=== PATIENT | female | born 1955 | race Hispanic/Latino ===

== ENCOUNTER 2017-09-26 17:54 | Observation (INO) | payer OTHER ==
[~2017-09-26] VITALS: Ht 154.9 cm; Wt 93.0 kg
[~2017-09-26 17:54] MED LIST: HYDROCHLOROTHIA25 MG; Z.0.ADVAIR 250-501 E; Z.0.AZITHROMYCIN250; Z.0.POTASSIUM CHLO20 MT; Z.0.PREDNISONE20 MG; Z.0.ZYRTEC10 MG; Z.1.CETIRIZINE HCL10
[2017-09-26 19:24] LABS: BASOPHILS # (AUTO) 0.1 (0.0-0.1); BASOPHILS % 0.6 % (0.0-1.0); EOSINOPHILS # (AUTO) 0.2 (0.0-0.4); EOSINOPHILS % 2.7 % (0.0-6.0); HEMATOCRIT 44.1 % (34.2-44.1); LYMPHOCYTES # (AUTO) 1.8 (1.0-3.2); LYMPHOCYTES % 20.4 % (18.0-39.1); MEAN CORPUSCULAR HEMOGLOBIN 28.4 pg (28-32); MEAN CORPUSCULAR VOLUME 83.4 fL (81-99); MONOCYTES # (AUTO) 0.7 (0.2-0.8); MONOCYTES % 8.2 % (4.4-11.3); NEUTROPHILS % 67.9 % (38.7-80.0); PLATELET COUNT 313 x10e3/uL (140-360); RED BLOOD COUNT 5.29 x10e6/uL (3.6-5.1); RED CELL DISTRIBUTION WIDTH 13.4 % (11.7-14.4)
[2017-09-26 19:36] LABS: INR 0.99; PROTHROMBIN TIME 12.3 seconds (11.9-14.5)
[2017-09-26 19:37] LABS: PARTIAL THROMBOPLASTIN TIME 29.3 seconds (23.8-35.5)
--- NOTE | 2017-09-26 19:38 | Diagnostic Imaging Report ---
EXAMINATION: Head CT without contrast. HISTORY:Status post fall. COMPARISON:CT brain from 06/16/2009. TECHNIQUE: Multidetector axial images were obtained from the foramen magnum to the vertex without contrast. The images were reconstructed using brain and bone algorithms. Thin section brain images were reformatted into coronal and sagittal planes. Intravenous contrast: None IMAGE QUALITY: Suboptimal evaluation particularly of skull base and posterior fossa structures due to streak artifacts. FINDINGS: Skull/scalp: No lytic or blastic. lesions. No surgical changes. Parenchyma: Nonspecific few, scattered supratentorial white matter hypodensity are likely related to small vessel ischemic changes. No acute hemorrhage, mass or acute major vascular territorial infarct. Arteries: No density suggestive of thrombosis. Dural sinuses: No abnormal density suggestive of thrombosis. Ventricles: Mild compensated dilatation due to volume loss. No hydrocephalus. Extra-axial spaces: No abnormal density. Brain volume: Mild generalized cerebral volume loss. Craniocervical junction: No mass, Chiari malformation, or basilar invagination. Sella: No mass. Paranasal/mastoid sinuses: Imaged portions unremarkable. IMPRESSION: No acute intracranial abnormality. Mild supratentorial white matter microvascular ischemic changes. Mild generalized cerebral volume loss. Signed by: Dr. Corie Celestin M.D. on 09/26/2017 7:34 PM
[2017-09-26 19:41] LABS: CREATINE KINASE 106 IU/L (29-168)
[2017-09-26 19:59] LABS: CLARITY,URINE CLEAR (CLEAR); COLOR,URINE YELLOW (YELLOW)
[2017-09-26 20:00] LABS: BILIRUBIN,URINE NEGATIVE (NEGATIVE); KETONES,URINE NEGATIVE (NEGATIVE); LEUKOCYTE ESTERASE ,URINE NEGATIVE (NEGATIVE); NITRITE,URINE NEGATIVE (NEGATIVE); PROTEIN,URINE DIPSTICK NEGATIVE (NEGATIVE); URINE UROBILINOGEN 0.2 mg/dL (0.2 - 1)
[2017-09-26 20:01] LABS: BACTERIA,URINE FEW /HPF; EPITHELIAL CELLS,URINE FEW /LPF; RBC,URINE 0-5 /HPF (0-5); WBC,URINE (MAN) 0-5 /HPF (0-5)
--- NOTE | 2017-09-26 20:29 | Diagnostic Imaging Report ---
EXAMINATION: CHEST SINGLE (PORTABLE) INDICATION: Chest pain, heaviness COMPARISON: 08/24/2011 FINDINGS: TUBES and LINES: None. LUNGS: Lungs are not well inflated. Lungs are clear. There is no evidence of pneumonia or pulmonary edema. PLEURA: No pleural effusion or pneumothorax. HEART AND MEDIASTINUM: The cardiomediastinal silhouette is unremarkable. BONES AND SOFT TISSUES: No acute osseous lesion. Anterior cervical spine fusion with plate and screws present. Soft tissues are unremarkable. UPPER ABDOMEN: No free air under the diaphragm. IMPRESSION: No acute thoracic abnormality. Signed by: Dr. Cody Fuentes M.D. on 09/26/2017 8:25 PM
[2017-09-26 21:21] LABS: ALBUMIN 3.6 g/dL (3.5-5.0); CALCIUM 9.7 mg/dL (8.4-10.2); CREATININE, SERUM 1.21 mg/dL (0.57-1.11)
[2017-09-26] MEDS ORDERED: SODIUM CHLORIDE FLUSH 10 ML SYR INJ PRN (21:45)
[2017-09-26] MEDS ORDERED: ONDANSETRON HCL INJ 2 MG/ML VIAL IV PRN (21:45)
--- OUTSIDE RECORDS SUMMARY | 2017-09-26 21:49 | XMS REPORT ---
Author Author [facility] Address Unknown Phone Unavailable Care Team Providers Care Sports Marketing Specialist Name Role Phone LARA LOPEZ PP Unavailable ALKA PIERRE Unavailable Unavailable Problems This patient has no known problems. Allergies, Adverse Reactions, Alerts This patient has no known allergies or adverse reactions. Medications This patient has no known medications. Encounters Start Date/Time End Date/Time Encounter Type Admission Type Attending Clinicians Care Facility Care Department Encounter ID 2017-04-22 13:19:00 2017-04-22 13:19:00 Outpatient [facility] [id number] Results Test Description Test Time Test Comments Text Results Atomic Results Result Comments CT BRAIN WO [place] [address] Patient Name: MARILYNN BARBOZA MR #: [id number] : 1955 Age/Sex: 62/F Req # : [id number] Adm Physician: Ordered by: KATHARINE CHÁVEZ NP Report #: [id number] Location: ER Room/Bed: Procedure: [id number] CT/CT BRAIN WO Exam Date: 09/26/17 Exam Time: 4 REPORT STATUS: Signed EXAMINATION: Head CT without contrast. HISTORY:Status post fall. COMPARISON:CT brain from 06/16/2009. TECHNIQUE: Multidetector axial images were obtained from the foramen magnum to the vertex without contrast. The images were reconstructed using brain and bone algorithms. Thin section brain images were reformatted into coronal and sagittal planes. Intravenous contrast: None IMAGE QUALITY: Suboptimal evaluation particularly of skull base and posterior fossa structures due to streak artifacts. FINDINGS: Skull/scalp: No lytic or blastic. lesions. No surgical changes. Parenchyma: Nonspecific few, scattered supratentorial white matter hypodensity are likely related to small vessel ischemic changes. No acute hemorrhage, mass or acute major vascular territorial infarct. Arteries: No density suggestive of thrombosis. Dural sinuses: No abnormal density suggestive of thrombosis. Ventricles: Mild compensated dilatation due to volume loss. No hydrocephalus. Extra- axial spaces: No abnormal density. Brain volume: Mild generalized cerebral volume loss. Craniocervical junction: No mass, Chiari malformation, or basilar invagination. Sella: No mass. Paranasal/ mastoid sinuses: Imaged portions unremarkable. IMPRESSION: No acute intracranial abnormality. Mild supratentorial white matter microvascular ischemic changes. Mild generalized cerebral volume loss. Signed by: Dr. Corie Celestin M.D. on 09/26/2017 7:34 PM Dictated By: CORIE CELESTIN MD 33 Transcribed By: JENNIFER on 09/26/171933 COPY TO: KATHARINE CHÁVEZ NP CHEST SINGLE (PORTABLE) [place] [address] Patient Name: MARILYNN BARBOZA MR #: [id number] : 1955 Age/Sex: 62/F Req #: [id number] Adm Physician: Ordered by: KATHARINE CHÁVEZ NP Report #: [id number] Location: ER Room/Bed: Procedure: [id number] DX/CHEST SINGLE (PORTABLE) Exam Date: 09/26/17 Exam Time: 1851 REPORT STATUS: Signed EXAMINATION: CHEST SINGLE (PORTABLE) INDICATION: Chest pain, heaviness COMPARISON: 08/24/2011 FINDINGS: TUBES and LINES: None. LUNGS: Lungs are not well inflated. Lungs are clear. There is no evidence of pneumonia or pulmonary edema. PLEURA: No pleural effusion or pneumothorax. HEART AND MEDIASTINUM: The cardiomediastinal silhouette is unremarkable. BONES AND SOFT TISSUES: No acute osseous lesion. Anterior cervical spine fusion with plate and screws present. Soft tissues are unremarkable. UPPER ABDOMEN: No free air under the diaphragm. IMPRESSION: No acute thoracic abnormality. Signed by: Dr. Cody Fuentes M.D. on 09/26/2017 8:25 PM Dictated By: CODY RITTER MD 24 Transcribed By: JENNIFER on 09/26/172024 COPY TO: KATHARINE CHÁVEZ NP
[2017-09-26] MEDS ORDERED: PRILOSEC OTC20 MG PO (22:01)
[2017-09-26] MEDS ORDERED: HYDROCHLOROTHIA25 MG PO (22:01)
[2017-09-26] MEDS ORDERED: POTASSIUM CHLO20 ME1 PO (22:01)
[2017-09-26] MEDS: ACETAMINOPHEN 325 MG TAB PO PRN (22:36)
[2017-09-27] VITALS (8 sets, daily range): BP systolic 105–129; BP diastolic 47–66
[2017-09-27] MEDS: ACETAMINOPHEN 325 MG TAB PO PRN ×3 (03:24→15:04)
[2017-09-27 03:55] LABS: CREATINE KINASE MB 0.7 ng/mL (0-5.0)
[2017-09-27 07:01] LABS: BASOPHILS # (AUTO) 0.1 (0.0-0.1); BASOPHILS % 0.7 % (0.0-1.0); EOSINOPHILS # (AUTO) 0.3 (0.0-0.4); EOSINOPHILS % 4.2 % (0.0-6.0); HEMATOCRIT 40.4 % (34.2-44.1); HEMOGLOBIN 13.6 g/dL (12.0-16.0); LYMPHOCYTES # (AUTO) 1.5 (1.0-3.2); LYMPHOCYTES % 21.2 % (18.0-39.1); MEAN CORPUSCULAR HEMOGLOBIN 28.2 pg (28-32); MEAN CORPUSCULAR HGB CONC 33.7 g/dL (31-35); MEAN CORPUSCULAR VOLUME 83.8 fL (81-99); MONOCYTES # (AUTO) 0.6 (0.2-0.8); MONOCYTES % 8.2 % (4.4-11.3); NEUTROPHILS # (AUTO) 4.7 (2.1-6.9); NEUTROPHILS % 65.4 % (38.7-80.0); PLATELET COUNT 300 x10e3/uL (140-360); RED BLOOD COUNT 4.82 x10e6/uL (3.6-5.1); RED CELL DISTRIBUTION WIDTH 13.7 % (11.7-14.4)
[2017-09-27 07:25] LABS: ALANINE AMINOTRANSFERASE 17 IU/L (0-55); ALBUMIN 3.1 g/dL (3.5-5.0); ALKALINE PHOSPHATASE 66 IU/L (40-150); ANION GAP 11.5 mmol/L (8-16); BLOOD UREA NITROGEN 15 mg/dL (7-26); BUN/CREATININE RATIO 17 (6-25); CALCIUM 8.8 mg/dL (8.4-10.2); CARBON DIOXIDE 28 mmol/L (22-29); CHLORIDE 104 mmol/L (98-107); CREATININE, SERUM 0.86 mg/dL (0.57-1.11); EST GLOMERULAR FILTRATION RATE > 60 ML/MIN (60-); GLUCOSE 100 mg/dL (74-118); POTASSIUM 3.5 mmol/L (3.5-5.1); SODIUM 140 mmol/L (136-145)
[2017-09-27] MEDS ORDERED: PANTOPRAZOLE SOD 40 MG TABEC PO SCH (07:30)
--- NOTE | 2017-09-27 08:27 | History and Physical ---
PRIMARY CARE PHYSICIAN: Dr. Sangeeta Matos CHIEF COMPLAINT: Dizziness and fall. HISTORY OF PRESENT ILLNESS: A 62-year-old woman with a history of hypertension, who was doing some yard work when she bent down to pull out some weeds, became dizzy, fell, and hit her left leg and head. She was admitted for further evaluation and management. PAST MEDICAL HISTORY: Hypertension, hyperlipidemia and GERD. PAST SURGICAL HISTORY: Left total knee replacement, left bunionectomy, right carpal tunnel release surgery, tonsillectomy, cholecystectomy, hysterectomy. ALLERGIES: PER ELECTRONIC MEDICAL RECORD. FAMILY HISTORY/SOCIAL HISTORY: The patient is . She has 2 children. Occasional alcohol. No cigarettes or illicits. MEDICATIONS: Per electronic medical record. REVIEW OF SYSTEMS: Denies any dizziness or chest pain. PHYSICAL EXAMINATION VITAL SIGNS: Have been reviewed. GENERAL: A tired-appearing woman resting in bed. HEENT: Anicteric. Pupils respond to light. No oral lesions. CARDIOVASCULAR: Normal S1 and S2. LUNGS: Moderate breath sounds. ABDOMEN: Soft, nontender and nondistended. EXTREMITIES: No edema or calf tenderness. NEUROLOGICAL: Alert and oriented times 3. Moving all extremities. SKIN: She has a small bruise on the right leg and right arm. Small bruising but no open wounds. Skin is dry. PSYCHIATRIC: Normal affect. LABS: Reviewed. MEDICATIONS: Reviewed. ASSESSMENT AND PLAN: This is a 62-year-old woman with: 1. Dizziness: Related to dehydration. Rehydrate now. 2. Acute kidney injury: Rehydrate. 3. Obesity: Body mass index 38.7. Consider obtaining lipid panel. 4. Hypertension: Restart home medications. 5. Gastroesophageal reflux disease: Restart proton pump inhibitor. 6. Prophylaxis: Use sequential compression devices and proton pump inhibitor. 7. Disposition: Check labs this afternoon at 4 p.m. If stable and improved, plan to discharge home after rehydration. Job#: [id number] ME
[2017-09-27] MEDS: SODIUM CHLORIDE 0.9% 1000ML 1,000 ML IV SCH ×2 (08:28→18:00)
[2017-09-27] MEDS ORDERED: NON-FORMULARY MEDICATION (Omeprazole Magnesium (Prilosec Otc) 20 MG) PO SCH (09:00)
[2017-09-27 11:08] LABS: CREATINE KINASE 73 IU/L (29-168)
[2017-09-27 16:20] LABS: HEMATOCRIT 41.8 % (34.2-44.1); HEMOGLOBIN 13.8 g/dL (12.0-16.0)
[2017-09-27 16:34] LABS: ANION GAP 10.8 mmol/L (8-16); BLOOD UREA NITROGEN 14 mg/dL (7-26); BUN/CREATININE RATIO 16 (6-25); CALCIUM 8.6 mg/dL (8.4-10.2); CARBON DIOXIDE 29 mmol/L (22-29); CHLORIDE 105 mmol/L (98-107); CREATININE, SERUM 0.85 mg/dL (0.57-1.11); EST GLOMERULAR FILTRATION RATE > 60 ML/MIN (60-); GLUCOSE 104 mg/dL (74-118); POTASSIUM 3.8 mmol/L (3.5-5.1); SODIUM 141 mmol/L (136-145)
[2017-09-27] MEDS ORDERED: ENOXAPARIN SOD INJ 40 MG/0.4 ML SYR SC SCH (17:00)
== END 2017-09-27 18:19 | disposition home or self-care (01) ==
LOC: ER 17:54 → ERHOLD 21:46 → IMCU 22:49
PROVIDERS: ADMIT Internal Medicine; ATTEND Internal Medicine
DX: R55 Syncope and collapse (principal); S00.83XA Contusion of other part of head, initial encounter; S80.11XA Contusion of right lower leg, initial encounter; I10 Essential (primary) hypertension; W01.0XXA Fall on same level from slipping, tripping and stumbling without subsequent striking against object, initial encounter; Y93.H2 Activity, gardening and landscaping; Y92.017 Garden or yard in single-family (private) house as the place of occurrence of the external cause; E78.5 Hyperlipidemia, unspecified; N17.9 Acute kidney failure, unspecified; E66.9 Obesity, unspecified; Z68.38 Body mass index [BMI] 38.0-38.9, adult
CPT/HCPCS: 36415 ×2; 70450; 71045; 80048; 80053 ×2; 81001; 82550 ×2; 82553 ×2; 84484 ×2; 85014; 85018; 85025 ×2; 85610; 85730; 93005; 93306; 93880; 97139; 97161; 99284; G0378 ×2; J7030

== ENCOUNTER 2018-08-27 11:16 | Inpatient (IN) | payer OTHER ==
[~2018-08-27] VITALS: Ht 152.4 cm; Wt 85.7 kg
[~2018-08-27 11:16] MED LIST changes: +HYDROCHLOROTHIA25 MG PO; +POTASSIUM CHLO20 ME1 PO; +PRILOSEC OTC20 MG PO
--- OUTSIDE RECORDS SUMMARY | 2018-08-27 11:20 | XMS REPORT | Summary of Care ---
Author Author [facility] Organization [facility] Address Unknown Phone Unavailable Encounter HQ Meryl_ana luisa(FIN) [id number] Date(s): 03/17/17 - 03/17/17 [facility] [address] [place] [address]- Discharge Disposition: Home or Self Care Attending Physician: Sangeeta Matos MD Referring Physician: Sangeeta Matos MD Vital Signs No data available for this section Problem List Condition Effective Dates Status Health Status Informant Hayfever(Confirmed) Active Anemia(Confirmed) Resolved Anxiety(Confirmed) Resolved Knee pain(Confirmed) Active Bronchitis(Confirmed Resolved ) Fracture of 09/10/08 Active humerus1, 2 Reflux Active esophagitis(Confirme d) HTN Active (hypertension)(Confi rmed) Arthritis(Confirmed) Active Pneumonia(Confirmed) Resolved Sleep Active apnea(Confirmed) 1Data migrated from [employer] on 11/20/14. 2Data migrated from [employer] on 11/20/14. Allergies, Adverse Reactions, Alerts Substance Reaction Severity Status meloxicam Active Medications No data available for this section Results No data available for this section Immunizations Given and Recorded Vaccine Date Status Refusal Reason influenza virus vaccine, inactivated 04/15/16 Given pneumococcal 23-valent vaccine 05/22/16 Given Procedures Procedure Date Related Diagnosis Body Site Cardiac catheterisation 04/06/16 Cervical laminectomy 2004 Carpal tunnel1 1998 Bunionectomy 1994 Laparoscopic cholecystectomy 1985 Hysterectomy 1979 Tonsillectomy 1980 1rt wrist Social History Social History Type Response Substance Abuse Use: None. Alcohol Current, Type Wine. Frequency: 1-2 times per year. Started age 21 Years. Previous treatment: None. Alcohol use interferes with work or home: No. Drinks more than intended: Yes. Others hurt by drinking: No. Ready to change: No. Household alcohol concerns: No. Smoking Status Never smoker; Exposure to Tobacco Smoke None; Cigarette Smoking Last 365 Days No; Reg Smoking Cessation Counseling No Assessment and Plan No data available for this section
--- OUTSIDE RECORDS SUMMARY | 2018-08-27 11:20 | XMS REPORT | Summary of Care ---
Author Author [facility] Organization [facility] Address Unknown Phone Unavailable Encounter HQ Dara(FIN) [id number] Date(s): 08/16/18 - 08/16/18 [facility] [address] [place] [address]- Encounter Diagnosis Encounter for screening mammogram for malignant neoplasm of breast (Final) - Discharge Disposition: Home or Self Care Attending Physician: Sangeeta Matos MD Admitting Physician: Sangetea Matos MD Referring Physician: Sangeeta Matos MD Vital Signs No data available for this section Problem List Condition Effective Dates Status Health Status Informant Hayfever(Confirmed) Active Anemia(Confirmed) Resolved Anxiety(Confirmed) Resolved Knee pain(Confirmed) Active Bronchitis(Confirmed Resolved ) Fracture of 09/10/08 Active humerus1, 2 Reflux Active esophagitis(Confirme d) HTN Active (hypertension)(Confi rmed) Arthritis(Confirmed) Active Pneumonia(Confirmed) Resolved Sleep Active apnea(Confirmed) 1Data migrated from [employer] on 11/20/14. 2Data migrated from [employer] on 11/20/14. Allergies, Adverse Reactions, Alerts Substance Reaction Severity Status meloxicam Active Medications No data available for this section Results No data available for this section Immunizations Given and Recorded Vaccine Date Status Refusal Reason pneumococcal 23-valent vaccine 05/22/16 Given influenza virus vaccine, inactivated 04/15/16 Given Procedures Procedure Date Related Diagnosis Body Site Status Cardiac catheterisation 04/06/16 Completed Cervical laminectomy 2003 Completed Carpal tunnel1 1998 Completed Bunionectomy 1994 Completed Laparoscopic cholecystectomy 1984 Completed Hysterectomy 1979 Completed Tonsillectomy 1979 Completed 1rt wrist Social History Social History Type [...] Days No; Reg Smoking Cessation Counseling No entered on: 12/15/17 Assessment and Plan No data available for this section
--- OUTSIDE RECORDS SUMMARY | 2018-08-27 11:20 | XMS REPORT | Summary of Care ---
Author Author [facility] Organization [facility] Address Unknown Phone Unavailable Encounter HQ Elvar_ana luisa(FIN) [id number] Date(s): 01/21/15 - 01/21/15 [facility] [address] [place] [address]- Discharge Disposition: Home Attending Physician: Briseida Fung MD Referring Physician: Briseida Fung MD Vital Signs Most recent to 1 oldest [Reference Range]: Height 152.4 cm (01/21/15 7:39 AM) Most recent to 1 oldest [Reference Range]: Weight 91.818 kg (01/21/15 7:39 AM) Most recent to 1 oldest [Reference Range]: Body Mass Index 39.53 m2 (01/21/15 7:39 AM) Problem List Condition Effective Dates Status Health Status Informant Fracture of 09/10/08 Active humerus1, 2 1Data migrated from [employer] on 11/20/14. 2Data migrated from [employer] on 11/20/14. Allergies, Adverse Reactions, Alerts Substance Reaction Severity Status NKDA Active Medications No data available for this section Results No data available for this section Immunizations No data available for this section Procedures No data available for this section Social History Social History Type Response Assessment and Plan No data available for this section
--- OUTSIDE RECORDS SUMMARY | 2018-08-27 11:20 | XMS REPORT | Summary of Care ---
Author Author [facility] Organization [facility] Address Unknown Phone Unavailable Encounter HQ Dara(FIN) [id number] Date(s): 12/15/17 - 12/15/17 [facility] [address] [place] [address]- Encounter Diagnosis Atypical chest pain (Discharge Diagnosis) - 12/15/17 Discharge Disposition: Home or Self Care Attending Physician: Zara Esposito MD Vital Signs 1 2 3 Most recent to oldest [Reference Range]: 152.4 cm (12/15/17 6:52 PM) Height 98.1 DegF (12/15/17 6:52 PM) Temperature Oral [96.4-99.1 DegF] 117/66 mmHg (12/15/17 9:16 PM) 103/52 mmHg (12/15/17 8:58 PM) 168/91 mmHg *HI* (12/15/17 8:22 PM) Blood Pressure [90-140/60-90 mmHg] 20 BRMIN (12/15/17 9:16 PM) 26 BRMIN *HI* (12/15/17 8:58 PM) 19 BRMIN (12/15/17 8:22 PM) Respiratory Rate [14-20 BRMIN] 66 bpm (12/15/17 7:35 PM) 66 bpm (12/15/17 6:52 PM) Peripheral Pulse Rate [60-100 bpm] 89.545 kg (12/15/17 6:52 PM) Weight 38.55 m2 (12/15/17 6:52 PM) Body Mass Index Problem List Condition Effective Dates Status Health Status Informant Hayfever(Confirmed) Active Anemia(Confirmed) Resolved Anxiety(Confirmed) Resolved Knee pain(Confirmed) Active Bronchitis(Confirmed Resolved ) Fracture of 09/10/08 Active humerus1, 2 Reflux Active esophagitis(Confirme d) HTN Active (hypertension)(Confi rmed) Arthritis(Confirmed) Active Pneumonia(Confirmed) Resolved Sleep Active apnea(Confirmed) 1Data migrated from [employer] on 11/20/14. 2Data migrated from [employer] on 11/20/14. Allergies, Adverse Reactions, Alerts Substance Reaction Severity Status meloxicam Active Medications amLODIPine 5 mg, 1 tab, Route: PO, Drug form: TAB, ONCE, Dosing Weight 89.545, kg, Start da te: 12/15/17 19:05:00 CDT, Stop date: 12/15/17 19:05:00 CDT Notes: (Same as: Norvasc) Start Date: 12/15/17 Stop Date: 12/15/17 Status: Completed Benadryl 25 mg, 0.5 mL, Route: IVP, Drug form: INJ, ONCE, Dosing Weight 89.545, kg, Prior ity: STAT, Start date: 12/15/17 19:58:00 CDT, Stop date: 12/15/17 19:58:00 CDT Notes: (Same as: Benadryl) Start Date: 12/15/17 Stop Date: 12/15/17 Status: Completed nitroglycerin 0.4 mg, 1 tab, Route: SL, Drug form: TAB, Q5Min, Dosing Weight 89.545, kg, PRN C hest Pain, Priority: STAT, Start date: 12/15/17 19:03:00 CDT, Duration: 3 doses or times, Stop date: Limited # of times Notes: (Same as:Nitroquick, Nitrostat)"Do Not Crush" Sublingual tablet Start Date: 12/15/17 Stop Date: 12/15/17 Status: Discontinued Reglan 10 mg, Route: IVP, Drug form: INJ, ONCE, Dosing Weight 89.545, kg, Priority: STA T, Start date: 12/15/17 19:58:00 CDT, Stop date: 12/15/17 19:58:00 CDT Start Date: 12/15/17 Stop Date: 12/15/17 Status: Deleted Reglan 10 mg, 2 mL, Route: IVP, Drug form: INJ, ONCE, Dosing Weight 89.545, kg, Priorit y: STAT, Start date: 12/15/17 19:57:00 CDT, Stop date: 12/15/17 19:57:00 CDT Notes: (Same as: [place]) Start Date: 12/15/17 Stop Date: 12/15/17 Status: Completed Results ELECTROLYTES Most recent to 1 oldest [Reference Range]: Sodium Lvl [135-145 141 mEq/L mEq/L] (12/15/17 7:27 PM) Potassium Lvl 4.4 mEq/L [3.5-5.1 mEq/L] (12/15/17 7:27 PM) Chloride Lvl [95-109 106 mEq/L mEq/L] (12/15/17 7:27 PM) CO2 [24-32 mEq/L] 27 mEq/L (12/15/17 7:27 PM) AGAP [10.0-20.0 12.4 mEq/L mEq/L] (12/15/17 7:27 PM) CHEM PANEL Most recent to 1 oldest [Reference Range]: Creatinine Lvl 0.91 mg/dL [0.50-1.40 mg/dL] (12/15/17 7:27 PM) eGFR 67 mL/min/1.73m2 1 *NA* (12/15/17 7:27 PM) BUN [7-22 mg/dL] 14 mg/dL (12/15/17 7:27 PM) Glucose Lvl [70-99 93 mg/dL mg/dL] (12/15/17 7:27 PM) Calcium Lvl 9.2 mg/dL [8.5-10.5 mg/dL] (12/15/17 7:27 PM) 1Result Comment: The eGFR is calculated using the CKD-EPI formula. In most young, healthy individuals the eGFR will be >90 mL/min/1.73m2. The eGFR declines with age. An eGFR of 60-89 may be normal in some populations, particularly the elderly, for whom the CKD-EPI formula has not been extensively validated. Use of the eGFR is not recommended in the following populations: Individuals with unstable creatinine concentrations, including patients and those with serious co-morbid conditions. Patients with extremes in muscle mass or diet. The data above are obtained from the National Kidney Disease Education Program ( NKDEP) which additionally recommends that when the eGFR is used in patients with extremes of body mass index for purposes of drug dosing, the eGFR should be mul tiplied by the estimated BMI. CARDIAC ENZYMES Most recent to 1 oldest [Reference Range]: CK MB [0.5-3.6 <1.0 ng/mL ng/mL] (12/15/17 PM) Troponin-I <0.02 ng/mL [0.00-0.40 ng/mL] (12/15/17 PM) HEMATOLOGY Most recent to 1 oldest [Reference Range]: WBC [3.7-10.4 K/CMM] 7.1 K/CMM (12/15/17 PM) RBC [4.20-5.40 5.41 M/CMM M/CMM] *HI* (12/15/17 PM) Hgb [12.0-16.0 g/dL] 15.4 g/dL (12/15/17 PM) Hct [36.0-48.0 %] 46.0 % (12/15/17 PM) MCV [80.0-98.0 fL] 85.1 fL (12/15/17 PM) MCH [27.0-31.0 pg] 28.5 pg (12/15/17 PM) MCHC [32.0-36.0 33.4 g/dL g/dL] (12/15/17 PM) RDW [11.5-14.5 %] 14.3 % (12/15/17 PM) MPV [7.4-10.4 fL] 9.4 fL (12/15/17 PM) Platelet [133-450 292 K/CMM K/CMM] (12/15/17 PM) Segs [45.0-75.0 %] 61.2 % (12/15/17 PM) Lymphocytes 26.7 % [20.0-40.0 %] (12/15/17 PM) Monocytes [2.0-12.0 7.8 % %] (12/15/17 PM) Eosinophils [0.0-4.0 3.8 % %] (6/27/18 7:27 PM) Basophils [0.0-1.0 0.5 % %] (12/15/17 7:27 PM) Segs-Bands # 4.4 K/CMM [1.5-8.1 K/CMM] (12/15/17 7:27 PM) Lymphocytes # 1.9 K/CMM [1.0-5.5 K/CMM] (12/15/17 7:27 PM) Monocytes # [0.0-0.8 0.6 K/CMM K/CMM] (12/15/17 7:27 PM) Eosinophils # 0.3 K/CMM [0.0-0.5 K/CMM] (12/15/17 7:27 PM) PT [12.0-14.7 11.8 seconds seconds] *LOW* (12/15/17 7:27 PM) INR [0.85-1.17] 0.87 (12/15/17 7:27 PM) PTT [22.9-35.8 30.9 seconds seconds] (12/15/17 7:27 PM) Immunizations Given and Recorded Vaccine Date Status [...]
--- OUTSIDE RECORDS SUMMARY | 2018-08-27 11:20 | XMS REPORT | Summary of Care ---
Author Organization Unknown Address Unknown Phone Unavailable Encounter HQ Myahntr_ana luisa(FIN) [id number] Date(s): 12/28/14 - 12/28/14 [facility] [address] [place] [address]- Discharge Disposition: Home Physician Attending: Sangeeta Matos MD Physician Admitting: Sangeeta Matos MD Vital Signs No data available for this section Problem List Condition Effective Dates Status Health Status Informant Fracture of 09/10/08 Active humerus1, 2 1Data migrated from [employer] on 11/20/14. 2Data migrated from [employer] on 11/20/14. Allergies, Adverse Reactions, Alerts Substance Reaction Severity Status NKDA Active Medications No data available for this section Results No data available for this section Immunizations No data available for this section Procedures No data available for this section Social History Social History Type Response Assessment and Plan No data available for this section
--- OUTSIDE RECORDS SUMMARY | 2018-08-27 11:20 | XMS REPORT | Summary of Care ---
Author Author [facility] Organization [facility] Address Unknown Phone Unavailable Encounter HQ Encntr_alias(FIN) [id number] Date(s): 02/27/16 - 02/27/16 [facility] [address] [place] [address]- Discharge Disposition: Home or Self Care Attending Physician: Sangeeta Matos MD Referring Physician: Sangeeta Matos MD Vital Signs No data available for this section Problem List Condition Effective Dates Status Health Status Informant Fracture of 09/10/08 Active humerus1, 2 1Data migrated from [employer] on 11/20/14. 2Data migrated from [employer] on 11/20/14. Allergies, Adverse Reactions, Alerts Substance Reaction Severity Status NKDA Active Medications No data available for this section Results No data available for this section Immunizations No data available for this section Procedures No data available for this section Social History Social History Type Response Assessment and Plan No data available for this section
--- OUTSIDE RECORDS SUMMARY | 2018-08-27 11:20 | XMS REPORT | Summary of Care ---
Author Author [facility] Organization [facility] Address Unknown Phone Unavailable Encounter HQ Dara(FIN) [id number] Date(s): 12/08/17 - 12/08/17 [facility] [address] [place] [address] [phone] Attending Physician: Lexi Goel MD Referring Physician: Lexi Goel MD Vital Signs No data available for [...] Reg Smoking Cessation Counseling No entered on: 05/19/16 Assessment and Plan No data available for this section
--- OUTSIDE RECORDS SUMMARY | 2018-08-27 11:20 | XMS REPORT | Continuity of Care Document ---
Author Author [facility] Interface Address Unknown Phone Unavailable Problems Problem Status Onset Date Classification Date Reported Comments Source ROUTINE MAMMOGRAM Active 08/10/2018 [facility] Atypical chest pain 12/15/2017 12/18/2017 [facility] DIZZINESS, HEADACHES, PRESSURE ON CHEST Active 12/15/2017 [facility] G47.33 Active 03/19/2017 [facility] G47.30 Active 03/11/2017 [facility] Z12.31 ROUTINE Active 01/27/2017 [facility] S/P LFT KNEE Active 09/18/2016 [facility] MMT Active 03/19/[address] 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 [facility] [place] [facility] Final: Other tear of medial meniscus, current injury, unspecified knee, initial encounter 05/28/[address] [facility] [place] Hayfever Active Problem 08/18/2018 [facility] Anemia Resolved Problem 08/18/2018 [facility] Anxiety Resolved Problem 08/18/2018 [facility] Knee pain Active Problem 08/18/2018 [facility] Bronchitis Resolved Problem 08/18/2018 [facility] Reflux esophagitis Active Problem 08/18/2018 [facility] HTN (<span ID="[id number]">Confirmed</span>) Active Problem 08/18/2018 [facility] Arthritis Active Problem 08/18/2018 [facility] Pneumonia Resolved Problem 08/18/2018 [facility] Sleep apnea Active Problem 08/18/2018 [facility] Hayfever Active Problem 12/11/2017 [facility] Anemia Resolved Problem 12/11/2017 [facility] Anxiety Resolved Problem 12/11/2017 [facility] Knee pain Active Problem 12/11/2017 [facility] Bronchitis Resolved Problem 12/11/2017 [facility] Reflux esophagitis Active Problem [facility]/11[facility] (<span ID="[id number]">Confirmed</span>) Active Problem 12/11/2017 [facility] Arthritis Active Problem 12/11/2017 [facility] Pneumonia Resolved Problem 12/11/2017 [facility] Sleep apnea Active Problem 12/11[facility]2017 [facility] Final: Encounter for screening mammogram for malignant neoplasm of breast 03/04/2017 [facility] Encounter for screening mammogram for malignant neoplasm of breast 08/18/2018 [facility] Contusion of head Active Problem 09/27/2017 [facility] Contusion of right leg Active Problem 09/27/2017 [facility] Syncope and collapse Active Problem 09/27/2017 [facility] SLEEP APNEA, UNSPECIFIED Active [facility] COUGH Active [facility] ENCNTR SCREEN MAMMOGRAM FOR MALIGNANT NE Active [facility] OTH TEAR OF MEDIAL MENISCUS, CURRENT INJ Active [facility] S/P LEFT KNEE SX 05/19/16 Active [facility] OBSTRUCTIVE SLEEP APNEA (ADULT) (PEDIATR Active [facility] Medications Medication Details Route Status Patient Instructions Ordering Provider Order Date Source Benadryl 25 mg, 0.5 mL, Route: IVP, Drug form: INJ, ONCE, Dosing Weight 89.545, kg, Priority: STAT, Start date: 12/15/17 19:58:00 CDT, Stop date: 12/15/17 19:58:00 CDTNotes: (Same as: Benadryl) Inactive 12/16/2017 [facility] Reglan 10 mg, Route: IVP, Drug form: INJ, ONCE, Dosing Weight 89.545, kg, Priority: STAT, Start date: 12/15/17 19:58:00 CDT, Stop date: 12/15/17 19:58:00 CDT Inactive 12/16/2017 [facility] Reglan 10 mg, 2 mL, Route: IVP, Drug form: INJ, ONCE, Dosing Weight 89.545, kg, Priority: STAT, Start date: 12/15/17 19:57:00 CDT, Stop date: 12/15/17 19:57:00 CDTNotes: (Same as: Reglan) Inactive 12/16/2017 [facility] Amlodipine 5 mg, 1 tab, Route: PO, Drug form: TAB, ONCE, Dosing Weight 89.545, kg, Start date: 12/15/17 19:05:00 CDT, Stop date: 12/15/17 19:05:00 CDTNotes: (Same as: Norvasc) Inactive 12/16/2017 [facility] Nitroglycerin 0.4 mg, 1 tab, Route: SL, Drug form: TAB, Q5Min, Dosing Weight 89.545, kg, PRN Chest Pain, Priority: STAT, Start date: 12/15/17 19:03:00 CDT, Duration: 3 doses or times, Stop date: Limited # of times Notes: (Same as:Nitroquick, Nitrostat) "Do Not Crush" Sublingual tablet Inactive 12/16/2017 [facility] Famotidine 40 MG Oral Tablet [Pepcid] 40 mg=1 tab, PO, BID, # 60 tab, 3 Refill(s), other Active 05/25/2016 [facility] Acetaminophen 325 MG / Hydrocodone Bitartrate 10 MG Oral Tablet [Newton 10/325] 1-2 tab, PO, PRN, PRN Pain, 1-2 tabs every every 6 hours as needed for pain, X 14 day, # 60 tab, 0 Refill(s) Active 05/25/2016 [facility] Sulfamethoxazole 800 MG / Trimethoprim 160 MG Oral Tablet [Bactrim] 1 tab, PO, BID, X 7 day, # 14 tab, 0 Refill(s), Pharmacy: [facility] [id number] Active 05/25/2016 [facility] Acetaminophen 650 mg, 2 tab, Route: PO, Drug form: TAB, ONCE, Dosing Weight 93.364, kg, Start date: 05/25/16 13:04:00 VENDOR MANAGEMENT CONSULTANT, Stop date: 05/25/16 13:04:00 VENDOR MANAGEMENT CONSULTANT, ..Notes: Do not exceed 4 gm/day. (Same as: Tylenol) Inactive 05/25/[address] [facility] [place] sodium chloride 0.45% 1000 ml INJ 1,000 mL 1,000 mL, Rate: 75 ml/hr, Infuse over: 13.3 hr, Route: IV, Dosing Weight 93.364 kg, Total Volume: 1,000, Start date: 05/23/16 3:33:00 VENDOR MANAGEMENT CONSULTANT, Duration: 30 day, Stop date: 06/22/16 3:32:00 VENDOR MANAGEMENT CONSULTANT Inactive 05/23/2016 [facility] GI cocktail 30 ml, Route: PO, Drug Form: SUSP, Dosing Weight 93.364, kg, TID, NOW, Start date: 05/21/16 9:32:00 VENDOR MANAGEMENT CONSULTANT, Duration: 30 day, Stop date: 06/20/16 9:00:00 CSTNotes: G.I. Cocktail=antacid with simethicone 22.5 mL - lidocaine viscous 7.5 mL No Longer Active 05/21/2016 [facility] Famotidine 40 MG Oral Tablet [Pepcid] 40 mg, 2 tab, Route: PO, Drug form: TAB, Q12H, Dosing Weight 93.364, kg, Priority: NOW, Start date: 05/21/16 9:32:00 VENDOR MANAGEMENT CONSULTANT, Duration: 30 day, Stop date: 06/20/16 9:00:00 CSTNotes: (Same as: Pepcid) No Longer Active 05/21/2016 [facility] tramadol hydrochloride 50 MG Oral Tablet 100 mg=2 tab, PO, Q12H, # 30 tab, 0 Refill(s) No Longer Active 05/21/2016 [facility] Ondansetron 4 MG Oral Tablet [Zofran] 4 mg=1 tab, PO, Q6H, PRN Nausea/Vomiting, X 8 day, # 30 tab, 0 Refill(s), Pharmacy: [facility] [id number] Active 05/21/2016 [facility] rivaroxaban 10 mg oral tablet 10 mg=1 tab, PO, Q24H, # 20 tab, 0 Refill(s), Pharmacy: [facility] [id number] Active 05/21/2016 [facility] methocarbamol 500 mg oral tablet 1,000 mg=2 tab, PO, Q8H, PRN Muscle Spasms, # 30 tab, 0 Refill(s), Pharmacy: [facility] [id number] Active 05/21/[address] [facility] [place] cyanocobalamin 1000 mcg sublingual tablet 1,000 microgram=1 tab, PO, Daily, 0 Refill(s) Active 05/21/[address] [facility] [place] Hydrochlorothiazide 25 MG Oral Tablet 25 mg, 1 tab, Route: PO, Drug form: TAB, Daily, Dosing Weight 93.364, kg, Start date: 05/20/16 9:00:00 VENDOR MANAGEMENT CONSULTANT, Duration: 30 day, Stop date: 06/18/16 9:00:00 CSTNotes: (Same as: Hydrodiuril) With food. No Longer Active 05/20/2016 [facility] Vitamin B12 1,000 microgram, 1 tab, Route: PO, Drug form: TAB, Daily, Dosing Weight 93.364, kg, Start date: 05/20/16 9:00:00 VENDOR MANAGEMENT CONSULTANT, Duration: 30 day, Stop date: 06/18/16 9:00:00 CSTNotes: (Same As: Vitamin B-12) No Longer Active 05/20/2016 [facility] Vitamin C 500 mg, 1 tab, Route: PO, Drug form: TAB, Daily, Dosing Weight 93.364, kg, Start date: 05/20/16 9:00:00 VENDOR MANAGEMENT CONSULTANT, Duration: 30 day, Stop date: 06/18/16 9:00:00 CSTNotes: (Same as: Vitamin C) No Longer Active 05/20/[address] [facility] [place] Amlodipine 2.5 mg, 1 tab, Route: PO, Drug form: TAB, Daily, Dosing Weight 93.364, kg, Start date: 05/20/16 9:00:00 VENDOR MANAGEMENT CONSULTANT, Duration: 30 day, Stop date: 06/18/16 9:00:00 CSTNotes: (Same as: Norvasc) No Longer Active 05/20/[address] [facility] [place] Zofran 4 mg, 2 mL, Route: IVP, Drug form: INJ, Q6H, Start date: 05/20/16 0:00:00 VENDOR MANAGEMENT CONSULTANT, Duration: 30 day, Stop date: 06/18/16 18:00:00 CSTNotes: (Same as: Zofran) MEDICATION WASTE Product Size: 4 mg Product Wasted: ___ mg No Longer Active 05/20/2016 [facility] rivaroxaban 10 mg, 1 tab, Route: PO, Drug form: TAB, Q24H, Dosing Weight 93.364, kg, Start date: 05/19/16 21:39:00 VENDOR MANAGEMENT CONSULTANT, Duration: 30 day, Stop date: 06/17/16 9:00:00 CSTNotes: (Same as: Xarelto) Do Not Crush No Longer Active 05/20/2016 [facility] Mupirocin 1 appl, Route: NASAL, Q12H, Drug form: OINT, Start date: 05/19/16 21:00:00 VENDOR MANAGEMENT CONSULTANT, Duration: 30 day, Stop date: 06/18/16 9:00:00 VENDOR MANAGEMENT CONSULTANT No Longer Active 05/20/2016 [facility] ceFAZolin (SCIP) + sodium chloride 0.9% INJ 100 mL 1 gm, Route: IVPB, Q6H, Dosing Weight 93.364, kg, Start date: 05/19/16 21:00:00 VENDOR MANAGEMENT CONSULTANT, Duration: 3 doses or times, Stop date: 05/20/16 9:00:00 CSTNotes: (Same As: Ancef, Kefzol) MEDICATION WASTE Product Size: 1000 mg Product Wasted: ___ mg No Longer Active 05/20/2016 [facility] ceFAZolin (SCIP) + sodium chloride 0.9% INJ 100 mL 1 gm, Route: IVPB, Q6H, Dosing Weight 93.364, kg, Start date: 05/19/16 18:00:00 VENDOR MANAGEMENT CONSULTANT, Duration: 3 doses or times, Stop date: 05/20/16 6:00:00 CSTNotes: (Same As: Ancef, Kefzol) MEDICATION WASTE Product Size: 1000 mg Product Wasted: ___ mg Inactive 05/20/2016 [facility] Docusate 100 mg, 1 cap, Route: PO, Drug form: CAP, BID, Dosing Weight 93.364, kg, Start date: 05/19/16 17:00:00 VENDOR MANAGEMENT CONSULTANT, Duration: 30 day, Stop date: 06/18/16 9:00:00 CSTNotes: (Same as: Colace) (Do Not Crush) No Longer Active 05/19/2016 [facility] Tramadol 100 mg, 2 tab, Route: PO, Drug form: TAB, Q6Hnow, Dosing Weight 93.364, kg, Start date: 05/19/16 16:00:00 VENDOR MANAGEMENT CONSULTANT, Duration: 30 day, Stop date: 06/18/16 10:00:00 CSTNotes: Not to exceed 400mg/day. (Same As: Ultram) No Longer Active 05/19/2016 [facility] celecoxib 200 mg, 1 cap, Route: PO, Drug form: CAP, [id number], Dosing Weight 93.364, kg, Start date: 05/19/16 16:00:00 VENDOR MANAGEMENT CONSULTANT, Duration: 30 day, Stop date: 06/18/16 4:00:00 CSTNotes: NSAID. Please check indication. Not for seizure. (Same As: CeleBREX) No Longer Active 05/19/2016 [facility] gabapentin 300 mg, 1 cap, Route: PO, Drug form: CAP, Q8Hnow, Dosing Weight 93.364, kg, Start date: 05/19/16 16:00:00 VENDOR MANAGEMENT CONSULTANT, Duration: 30 day, Stop date: 06/18/16 8:00:00 CSTNotes: (Same as: Neurontin) No Longer Active 05/19/2016 [facility] fentaNYL (ANES) Route: IV, Drug form: INJ, ONCE, Stop date: 05/19/16 15:55:00 VENDOR MANAGEMENT CONSULTANT Inactive 05/19/2016 [facility] ketOROLAC (ANES) IV, ONCE Inactive 05/19/2016 [facility] ondansetron (ANES) Route: IV, Drug form: INJ, ONCE, Stop date: 05/19/16 15:33:00 VENDOR MANAGEMENT CONSULTANT Inactive 05/19/2016 [facility] Al hydroxide/Mg hydroxide/simethicone 200 mg-200 mg-20 mg/5 mL oral suspension 30 mL, Route: PO, Drug Form: SUSP, Dosing Weight 93.364, kg, Q4H, PRN Indigestion, Start date: 05/19/16 15:32:00 VENDOR MANAGEMENT CONSULTANT, Duration: 30 day, Stop date: 06/18/16 15:31:00 CSTNotes: (aluminum hydroxide-magnesium hyd- simethicone [phone]/5ml 30 ml ud ANGELIKA) No Longer Active 05/19/2016 [facility] Nalbuphine 2 mg, 0.2 mL, Route: IVP, Drug form: INJ, Q2H, Dosing Weight 93.364, kg, PRN Itching, Start date: 05/19/16 15:32:00 VENDOR MANAGEMENT CONSULTANT, Duration: 5 doses or times, Stop date: Limited # of timesNotes: (Same As: Nuba in) No Longer Active 05/19/2016 [facility] Melatonin 3 mg, 1 tab, Route: PO, Drug form: TAB, Bedtime, Dosing Weight 93.364, kg, PRN Insomnia, Start date: 05/19/16 15:32:00 VENDOR MANAGEMENT CONSULTANT, Duration: 30 day, Stop date: 06/18/16 15:31:00 CSTNotes: (Same as: Melatonin) No Longer Active 05/19/2016 [facility] Morphine 2 mg, 1 mL, Route: IVP, Drug form: INJ, Q4H, Dosing Weight 93.364, kg, PRN Pain Score 7-10, Start date: 05/19/16 15:32:00 VENDOR MANAGEMENT CONSULTANT, Duration: 30 day, Stop date: 06/18/16 15:31:00 CSTNotes: (Same as:MORPhine Sulfate) No Longer Active 05/19/2016 [facility] Ondansetron 4 mg, 2 mL, Route: IVP, Drug form: INJ, Q8H, Dosing Weight 93.364, kg, PRN Nausea & Vomiting, Start date: 05/19/16 15:32:00 VENDOR MANAGEMENT CONSULTANT, Duration: 30 day, Stop date: 06/18/16 15:31:00 CSTNotes: (Same as: Zofran) MEDICATION WASTE Product Size: 4 mg Product Wasted: ___ mg No Longer Active 05/19/2016 [facility] Methocarbamol 1,000 mg, 2 tab, Route: PO, Drug form: TAB, Q8H, Dosing Weight 93.364, kg, PRN Muscle Spasms, Start date: 05/19/16 15:32:00 VENDOR MANAGEMENT CONSULTANT, Duration: 30 day, Stop date: 06/18/16 15:31:00 CSTNotes: (Same as:Robaxin) No Longer Active 05/19/2016 [facility] Bisacodyl 10 mg, 1 supp, Route: ID, Drug form: SUPP, Daily, Dosing Weight 93.364, kg, PRN Constipation, Start date: 05/19/16 15:32:00 VENDOR MANAGEMENT CONSULTANT, Duration: 30 day, Stop date: 06/18/16 15:31:00 CSTNotes: (Same As: Dulcolax, Bisco-Lax) No Longer Active 05/19/2016 [facility] Oxycodone Hydrochloride 5 MG Oral Tablet 10 mg, 2 tab, Route: PO, Drug form: TAB, Q4H, Dosing Weight 93.364, kg, PRN Pain Score 7-10, Start date: 05/19/16 15:32:00 VENDOR MANAGEMENT CONSULTANT, Duration: 30 day, Stop date: 06/18/16 15:31:00 CSTNotes: (Same as: Roxicodone) No Longer Active 05/19/2016 [facility] sodium chloride 0.45% 1000 ml INJ 1,000 mL 1,000 mL, Rate: 75 ml/hr, Infuse over: 13.3 hr, Route: IV, Dosing Weight 93.364 kg, Total Volume: 1,000, Start date: 05/19/16 15:32:00 VENDOR MANAGEMENT CONSULTANT, Duration: 30 day, Stop date: 06/18/16 15:31:00 VENDOR MANAGEMENT CONSULTANT No Longer Active 05/19/2016 [facility] acetaminophen (ANES) Route: IV, Drug form: INJ, ONCE, Stop date: 05/19/16 14:52:00 VENDOR MANAGEMENT CONSULTANT Inactive 05/19/2016 [facility] metoclopramide (ANES) Route: IV, Drug form: INJ, ONCE, Stop date: 05/19/16 14:21:00 VENDOR MANAGEMENT CONSULTANT Inactive 05/19/2016 [facility] dexamethasone (ANES) Route: IV, Drug form: INJ, ONCE, Stop date: 05/19/16 14:21:00 VENDOR MANAGEMENT CONSULTANT Inactive 05/19/2016 [facility] tranexamic acid (ANES) Route: IV, Drug form: INJ, ONCE, Stop date: 05/19/16 14:21:00 VENDOR MANAGEMENT CONSULTANT Inactive 05/19/2016 [facility] famotidine (ANES) Route: IV, Drug form: INJ, ONCE, Stop date: 05/19/16 14:21:00 VENDOR MANAGEMENT CONSULTANT Inactive 05/19/2016 [facility] ondansetron (ANES) Route: IV, Drug form: INJ, ONCE, Stop date: 05/19/16 14:21:00 VENDOR MANAGEMENT CONSULTANT Inactive 05/19/[address] [facility] [place] morphine Sulfate (ANES) Route: IV, Drug form: INJ, ONCE, Stop date: 05/19/16 14:16:00 VENDOR MANAGEMENT CONSULTANT Inactive 05/19/[address] [facility] bupivacaine (ANES) Route: INTRATHECAL, Drug Form: INJ, ONCE, Stop date: 05/19/16 14:16:00 VENDOR MANAGEMENT CONSULTANT Inactive 05/19/[address] [facility] rocuronium (ANES) Route: IV, Drug form: INJ, ONCE, Stop date: 05/19/16 13:56:00 VENDOR MANAGEMENT CONSULTANT Inactive 05/19/[address] [facility] ceFAZolin (ANES) Route: IV, Drug form: INJ, ONCE, Stop date: 05/19/16 13:54:00 VENDOR MANAGEMENT CONSULTANT Inactive 05/19/[address] [facility] fentaNYL (ANES) Route: IV, Drug form: INJ, ONCE, Stop date: 05/19/16 13:42:00 VENDOR MANAGEMENT CONSULTANT Inactive 05/19/[address] [facility] propofol (ANES) Route: IV, Drug form: INJ, ONCE, Stop date: 05/19/16 13:42:00 VENDOR MANAGEMENT CONSULTANT Inactive 05/19/[address] [facility] lidocaine (ANES) Route: IV, Drug form: INJ, ONCE, Stop date: 05/19/16 13:42:00 VENDOR MANAGEMENT CONSULTANT Inactive 05/19/[address] [facility] midazolam (ANES) Route: IV, Drug form: SOLN, ONCE, Stop date: 05/19/16 13:31:00 VENDOR MANAGEMENT CONSULTANT Inactive 05/19/[address] [facility] vancomycin (ANES) (ANES) Route: IV, Drug form: INJ, Start date: 05/19/16 13:21:00 VENDOR MANAGEMENT CONSULTANT, Stop date: 05/19/16 14:21:00 VENDOR MANAGEMENT CONSULTANT Inactive 05/19/[address] [facility] vancomycin 500 mg + polymyxin B sulfate 125,000 unit + sodium chloride 0.9% 500 ml INJ 500 mL Route: MISC, Drug form: PDR/INJ, ONCALL, Start date: 05/19/16 13:00:00 VENDOR MANAGEMENT CONSULTANT, Stop date: 05/19/16 14:00:00 CSTNotes: TIME CRITICAL MEDICATION (Same As: Vancocin) Inactive 05/19/[address] [facility] LR 1000 mL INJ (ANES) Route: IV, Total Volume: 1,000, Start date: 05/19/16 12:50:00 VENDOR MANAGEMENT CONSULTANT, Stop date: 05/19/16 13:50:00 VENDOR MANAGEMENT CONSULTANT Inactive 05/19/2016 [facility] Calcium Chloride 0.0014 MEQ/ML / Potassium Chloride 0.004 MEQ/ML / Sodium Chloride 0.103 MEQ/ML / Sodium Lactate 0.028 MEQ/ML Injectable Solution 1,000 mL, Rate: 25 ml/hr, Infuse over: 40 hr, Route: IV, Dosing Weight 93.364 kg, Total Volume: 1,000, Start date: 05/19/16 9:41:00 VENDOR MANAGEMENT CONSULTANT, Duration: 30 day, Stop date: 06/18/16 9:40:00 VENDOR MANAGEMENT CONSULTANT Inactive 05/19/2016 [facility] Vitamin B12 1000 mcg/mL injectable solution 1,000 microgram=1 mL, IM, qMonth, # 10 mL, 0 Refill(s) Active 05/19/2016 [facility] 8 HR Acetaminophen 650 MG Extended Release Tablet [Tylenol] 1,300 mg=2 tab, PO, Q8H, 0 Refill(s) No Longer Active 05/19/2016 [facility] Vitamin D3 1000 intl units oral tablet 1,000 IntlUnit=1 tab, PO, Daily, # 30 tab, 0 Refill(s) Active 05/13/2016 [facility] Vitamin B12 1000 mcg oral tablet 1,000 microgram=1 tab, PO, Daily, # 30 tab, 0 Refill(s) Active 05/13/2016 [facility] multivitamin 1 tab, PO, Daily, 0 Refill(s) Active 05/13/2016 [facility] Vitamin C 500 mg oral tablet 500 mg=1 tab, PO, Daily, # 30 tab, 0 Refill(s) Active 05/13/2016 [facility] Hydrochlorothiazide 25 MG Oral Tablet 25 mg=1 tab, PO, Daily, # 30 tab, 0 Refill(s) Active 05/13/2016 [facility] amLODIPine 2.5 mg oral tablet 2.5 mg=1 tab, PO, Daily, # 30 tab, 0 Refill(s) Active 05/13/2016 [facility] potassium chloride 20 mEq oral tablet, extended release 20 mEq=1 tab, PO, Daily, # 30 tab, 3 Refill(s) Active 05/13/2016 [facility] Azithromycin (Azithromycin*) 250 Mg Tablet, Active 07/30/2012 [facility] Cetirizine Hcl 10 Mg Tablet, Active 07/30/2012 [facility] Cetirizine Hcl (Zyrtec) 10 Mg Tablet, Active 07/30/2012 [facility] Prednisone 20 Mg Tablet, Active 07/30/2012 [facility] Hydrochlorothiazide 25 Mg Tablet Daily Active [facility] Omeprazole Magnesium (Prilosec Otc) 20 Mg Tablet.dr Daily Active [facility] Potassium Chloride 20 Meq Tab.er.prt Daily Active [facility] Allergies, Adverse Reactions, Alerts Substance Category Reaction Severity Reaction type Status Date Reported Comments Source No Known Drug Allergies Mild Allergy to Substance Active 09/26/2017 [facility] meloxicam Assertion Drug allergy Active [facility] Immunizations Immunization Date Given Site Status Last Updated Comments Source pneumococcal 23-valent vaccine 05/22/2016 Left deltoid completed [facility] pneumococcal 23-valent vaccine 05/22/2016 [facility] influenza virus vaccine, inactivated 04/15/2016 completed [facility] influenza virus vaccine, inactivated 04/15/2016 [facility] Results Order Name Results Value Reference Range Date Interpretation Comments Source Breast Mammo Scrn DION w dianna incl CAD MA Breast Mammo Scrn DION w dianna incl CAD MA BILATERAL DIGITAL SCREENING MAMMOGRAM 3D/2D WITH CAD: 08/16/2018 CLINICAL: /Z12.31 Encounter For Screening Mammogram For Malignant Neoplasm Of Breast. Current study was evaluated with a Computer Aided Detection (CAD) system. COMPARISON:Comparison is made to exams dated: 03/01/2017 mammogram, 02/27/2016 mammogram, 02/05/2015 mammogram, 11/14/2013 mammogram, and 06/11/2011 mammogram - [facility]. TECHNIQUE: Digital Breast Tomosynthesis was performed and utilized for Interpretation. [employer] Version 1.1 was utilized for computer aided detection. FINDINGS: There are scattered fibroglandular densities in both breasts. There are benign calcifications in both breasts. No significant masses, calcifications, or other findings are seen in either breast. There has been no significant interval change. IMPRESSION: BENIGN RECOMMENDATION:There is no mammographic evidence of malignancy. A 1 year screening mammogram is recommended.(08/17/2019) This exam was interpreted at [id number] for [facility] [place] [facility]. Jeferson Mondragon M.D. ap/penrad:08/16/2018 10:57:48 Furniture Technician(s): RT Mehrdad(R)(M), [facility] letter sent: BI-RADS 1/2 Mammogram BI-RADS: 2 Benign 08/16/2018 - - Read by: Jeferson Mondragon MD Dictated Date/time: 08/16/18 10:57 Electronically Signed by: Jeferson Mondragon MD 08/16/18 10:57 FINAL REPORT [facility] CARDIAC ENZYMES CK MB null 0.5 - 3.6 12/16/2017 [facility] CARDIAC ENZYMES Troponin-I null 0.00 - 0.40 12/16/2017 [facility] ELECTROLYTES CO2 27 meq/L 24 - 32 12/16/2017 [facility] ELECTROLYTES Chloride Lvl 106 meq/L 95 - 109 12/16/2017 [facility] ELECTROLYTES eGFR 67 mL/min/1.73m2 12/16/2017 Result Comment: The eGFR is calculated using the [...] from the National Kidney Disease Education Program (NKDEP) which additionally recommends that when the eGFR is used in patients with extremes of body mass index for purposes of drug dosing, the eGFR should be multiplied by the estimated BMI. [facility] ELECTROLYTES Sodium Lvl 141 meq/L 135 - 145 12/16/2017 [facility] ELECTROLYTES Creatinine Lvl 0.91 mg/dL 0.50 - 1.40 12/16/2017 [facility] ELECTROLYTES BUN 14 mg/dL 7 - 22 12/16/2017 [facility] ELECTROLYTES Glucose Lvl 93 mg/dL 70 - 99 12/16/2017 [facility] ELECTROLYTES Potassium Lvl 4.4 meq/L 3.5 - 5.1 12/16/2017 [facility] ELECTROLYTES Calcium Lvl 9.2 mg/dL 8.5 - 10.5 12/16/2017 [facility] ELECTROLYTES AGAP 12.4 meq/L 10.0 - 20.0 12/16/2017 [facility] HEMATOLOGY Eosinophils # 0.3 K/CMM 0.0 - 0.5 12/16/2017 [facility] HEMATOLOGY Monocytes # 0.6 K/CMM 0.0 - 0.8 12/16/2017 [facility] HEMATOLOGY Segs-Bands # 4.4 K/CMM 1.5 - 8.1 12/16/2017 [facility] HEMATOLOGY Lymphocytes # 1.9 K/CMM 1.0 - 5.5 12/16/2017 [facility] HEMATOLOGY Basophils 0.5 % 0.0 - 1.0 12/16/2017 [facility] HEMATOLOGY Eosinophils 3.8 % 0.0 - 4.0 12/16/2017 [facility] HEMATOLOGY Monocytes 7.8 % 2.0 - 12.0 12/16/2017 [facility] HEMATOLOGY Lymphocytes 26.7 % 20.0 - 40.0 12/16/2017 [facility] HEMATOLOGY Segs 61.2 % 45.0 - 75.0 12/16/2017 [facility] HEMATOLOGY PTT 30.9 s 22.9 - 35.8 12/16/2017 [facility] HEMATOLOGY PT 11.8 s 12.0 - 14.7 12/16/2017 [facility] HEMATOLOGY INR 0.87 0.85 - 1.17 12/16/2017 [facility] HEMATOLOGY WBC 7.1 K/CMM 3.7 - 10.4 12/16/2017 [facility] HEMATOLOGY Hgb 15.4 g/dL 12.0 - 16.0 12/16/2017 [facility] HEMATOLOGY Platelet 292 K/CMM 133 - 450 12/16/2017 [facility] HEMATOLOGY RDW 14.3 % 11.5 - 14.5 12/16/2017 [facility] HEMATOLOGY Hct 46.0 % 36.0 - 48.0 12/16/2017 [facility] HEMATOLOGY MCV 85.1 fL 80.0 - 98.0 12/16/2017 [facility] HEMATOLOGY RBC 5.41 M/CMM 4.20 - 5.40 12/16/2017 [facility] HEMATOLOGY MCH 28.5 pg 27.0 - 31.0 12/16/2017 [facility] HEMATOLOGY MCHC 33.4 g/dL 32.0 - 36.0 12/16/2017 [facility] HEMATOLOGY MPV 9.4 fL 7.4 - 10.4 12/16/2017 [facility] Chest 1view DX Chest 1view DX EXAM: XR CHEST 1 VIEW DATE: 12/15/2017 7:01 PM CDT INDICATION: Chest pain. COMPARISON: 05/19/2016. TECHNIQUE: Frontal radiograph of the chest was obtained. FINDINGS: No focal consolidation or pneumothorax is identified. The cardiomediastinal silhouette is within normal limits. The costophrenic recesses are sharp and without effusion. Postsurgical changes are noted within the cervical spine. IMPRESSION: No acute cardiopulmonary abnormality. SL: WR2-M 12/15/2017 - - Read by: Checo Rutherford MD Dictated Date/time: 12/15/17 19:36 Electronically Signed by: Checo Rutherford MD 12/15/17 19:36 FINAL REPORT [facility] Brain wo contrast CT Brain wo contrast CT Clinical Indication: Left-sided weakness and tingling today; Comparison: June 18, 2009 TECHNIQUE: CT images were obtained from the foramen magnum to the vertex without the use of intravenous contrast on a multidetector CT. Coronal and sagittal reconstructions were obtained. CT radiation dose DLP: 1029.93 mGy-cm FINDINGS: BRAIN PARENCHYMA: There are normal whitfield-white interfaces, sulci and gyri. There are no focal mass lesions on this noncontrast head CT. There is no mass effect, midline shift or edema. There are no intra-axial or extra-axial fluid collections, intraventricular or intraparenchymal hemorrhage. The pineal, sellar, brainstem, cerebellum and skull base regions appear unremarkable. VENTRICLES: The lateral ventricles, third and fourth ventricles appear unremarkable. The basilar cisterns are normal. ORBITS, MASTOIDS AND PARANASAL SINUSES: The visualized orbits and paranasal sinuses are unremarkable. The mastoid air cells are clear. SKULL: There are no osseous abnormalities. If there is further concern for intracranial pathology or acute stroke, MRI of the brain may be performed for complete assessment. IMPRESSION: Unremarkable noncontrast head CT with no mass, hemorrhage or subacute stroke. SL: WR3-M 12/15/2017 - - Read by: Daniel Kim MD Dictated Date/time: 12/15/17 19:25 Electronically Signed by: Daniel Kim MD 12/15/17 19:25 FINAL REPORT [facility] Automated blood hematocrit (volume fraction) Automated blood hematocrit (volume fraction) 41.8 34.2 - 44.1 09/27/2017 [facility] Blood hemoglobin measurement (moles/volume) Blood hemoglobin measurement (moles/volume) 13.8 12.0 - 16.0 09/27/2017 [facility] Estimated glomerular filtration rate (GFR) determination Estimated glomerular filtration rate (GFR) determination null 60 09/27/2017 [facility] Glucose measurement Glucose measurement 104 74 - 118 09/27/2017 [facility] Serum or plasma anion gap Serum or plasma anion gap 10.8 8 - 16 09/27/2017 [facility] Serum or plasma calcium measurement (mass/volume) Serum or plasma calcium measurement (mass/volume) 8.6 8.4 - 10.2 09/27/2017 [facility] Serum or plasma carbon dioxide, total measurement (moles/volume) Serum or plasma carbon dioxide, total measurement (moles/volume) 29 22 - 29 09/27/2017 [facility] Serum or plasma chloride measurement (moles/volume) Serum or plasma chloride measurement (moles/volume) 105 98 - 107 09/27/2017 [facility] Serum or plasma creatinine measurement (mass/volume) Serum or plasma creatinine measurement (mass/volume) 0.85 0.57 - 1.11 09/27/2017 [facility] Serum or plasma potassium measurement (moles/volume) Serum or plasma potassium measurement (moles/volume) 3.8 3.5 - 5.1 09/27/2017 [facility] Serum or plasma sodium measurement (moles/volume) Serum or plasma sodium measurement (moles/volume) 141 136 - 145 09/27/2017 [facility] Serum or plasma urea nitrogen measurement (mass/volume) Serum or plasma urea nitrogen measurement (mass/volume) 14 7 - 26 09/27/2017 [facility] Serum or plasma urea nitrogen/creatinine mass ratio Serum or plasma urea nitrogen/creatinine mass ratio 16 6 - 25 09/27/2017 [facility] Serum or plasma creatine kinase MB measurement (mass/volume) Serum or plasma creatine kinase MB measurement (mass/volume) 1.00 0 - 5.0 09/27/2017 [facility] Serum or plasma creatine kinase measurement (enzymatic activity/volume) Serum or plasma creatine kinase measurement (enzymatic activity/volume) 73 29 - 168 09/27/2017 [facility] Troponin I measurement by highly sensitive enzyme immunoassay Troponin I measurement by highly sensitive enzyme immunoassay null 0 - 0.300 09/27/2017 [facility] Automated blood basophil count (count/volume) Automated blood basophil count (count/volume) 0.1 0.0 - 0.1 09/27/2017 [facility] Automated blood basophil count as percentage of total leukocytes Automated blood basophil count as percentage of total leukocytes 0.7 0.0 - 1.0 09/27/2017 [facility] Automated blood eosinophil count Automated blood eosinophil count 0.3 0.0 - 0.4 09/27/2017 [facility] Automated blood eosinophil count as percentage of total leukocytes Automated blood eosinophil count as percentage of total leukocytes 4.2 0.0 - 6.0 09/27/2017 [facility] Automated blood lymphocyte count as percentage ot total leukocytes Automated blood lymphocyte count as percentage ot total leukocytes 21.2 18.0 - 39.1 09/27/2017 [facility] Automated blood monocyte count as percentage of total leukocytes Automated blood monocyte count as percentage of total leukocytes 8.2 4.4 - 11.3 09/27/2017 [facility] Automated blood neutrophil count Automated blood neutrophil count 4.7 2.1 - 6.9 09/27/2017 [facility] Automated blood platelet count (count/volume) Automated blood platelet count (count/volume) 300 140 - 360 09/27/2017 [facility] Automated blood segmented neutrophil count as percentage of total leukocytes Automated blood segmented neutrophil count as percentage of total leukocytes 65.4 38.7 - 80.0 09/27/2017 [facility] Automated erythrocyte mean corpuscular hemoglobin (mass per erythrocyte) Automated erythrocyte mean corpuscular hemoglobin (mass per erythrocyte) 28.2 28 - 32 09/27/2017 [facility] Automated erythrocyte mean corpuscular hemoglobin concentration measurement (mass/volume) Automated erythrocyte mean corpuscular hemoglobin concentration measurement (mass/volume) 33.7 31 - 35 09/27/2017 [facility] Automated erythrocyte mean corpuscular volume Automated erythrocyte mean corpuscular volume 83.8 81 - 99 09/27/2017 [facility] Blood erythrocytes automated count (number/volume) Blood erythrocytes automated count (number/volume) 4.82 3.6 - 5.1 09/27/2017 [facility] Blood leukocytes automated count (number/volume) Blood leukocytes automated count (number/volume) 7.21 4.8 - 10.8 09/27/2017 [facility] Blood lymphocytes count (number/volume) Blood lymphocytes count (number/volume) 1.5 1.0 - 3.2 09/27/2017 [facility] Blood monocytes automated count (number/volume) Blood monocytes automated count (number/volume) 0.6 0.2 - 0.8 09/27/2017 [facility] Plasma globulin measurement (mass/volume) Plasma globulin measurement (mass/volume) 3.1 2.3 - 3.5 09/27/2017 [facility] Serum or plasma alanine aminotransferase measurement (enzymatic activity/volume) Serum or plasma alanine aminotransferase measurement (enzymatic activity/volume) 17 0 - 55 09/27/2017 [facility] Serum or plasma albumin measurement (mass/volume) Serum or plasma albumin measurement (mass/volume) 3.1 3.5 - 5.0 09/27/2017 [facility] Serum or plasma albumin/globulin mass ratio Serum or plasma albumin/globulin mass ratio 1.0 0.8 - 2.0 09/27/2017 [facility] Serum or plasma alkaline phosphatase measurement (enzymatic activity/volume) Serum or plasma alkaline phosphatase measurement (enzymatic activity/volume) 66 40 - 150 09/27/2017 [facility] Serum or plasma protein measurement (mass/volume) Serum or plasma protein measurement (mass/volume) 6.2 6.5 - 8.1 09/27/2017 [facility] Serum or plasma total bilirubin measurement (mass/volume) Serum or plasma total bilirubin measurement (mass/volume) 0.7 0.2 - 1.2 09/27/2017 [facility] Red Cell Distribution Width 13.7 11.7 - 14.4 09/27/2017 [facility] IM GRANULOCYTES % 0.3 0.0 - 1.0 09/27/2017 [facility] Absolute Immature Granulocyte (auto 0.02 0 - 0.1 09/27/2017 [facility] Aspartate Amino Transf (AST/SGOT) 17 5 - 34 09/27/2017 [facility] Activated partial thromboplastin time (aPTT) in platelet poor plasma bycoagulation assay Activated partial thromboplastin time (aPTT) in platelet poor plasma bycoagulation assay 29.3 23.8 - 35.5 09/26/2017 [facility] INR in Platelet poor plasma by Coagulation assay INR in Platelet poor plasma by Coagulation assay 0.99 09/26/2017 [facility] Prothrombin time (PT) in platelet poor plasma by coagulation assay Prothrombin time (PT) in platelet poor plasma by coagulation assay 12.3 11.9 - 14.5 09/26/2017 [facility] Automated urine sediment leukocyte count by microscopy (number/high power field) Automated urine sediment leukocyte count by microscopy (number/high power field) null 0 - 5 09/26/2017 [facility] Bacteria detection in urine sediment by light microscopy Bacteria detection in urine sediment by light microscopy FEW NONE 09/26/2017 [facility] Epithelial cells detection in urine sediment by light microscopy Epithelial cells detection in urine sediment by light microscopy FEW NONE 09/26/2017 [facility] Erythrocytes detection in urine sediment by light microscopy Erythrocytes detection in urine sediment by light microscopy null 0 - 5 09/26/2017 [facility] Specific gravity of Urine by Test strip Specific gravity of Urine by Test strip 1.020 1.010 - 1.025 09/26/2017 [facility] Urine clarity Urine clarity CLEAR CLEAR 09/26/2017 [facility] Urine color determination Urine color determination YELLOW YELLOW 09/26/2017 [facility] Urine erythrocytes detection Urine erythrocytes detection TRACE NEGATIVE 09/26/2017 [facility] Urine glucose detection Urine glucose detection NEGATIVE NEGATIVE 09/26/2017 [facility] Urine ketones detection by automated test strip Urine ketones detection by automated test strip NEGATIVE NEGATIVE 09/26/2017 [facility] Urine leukocyte esterase detection by dipstick Urine leukocyte esterase detection by dipstick NEGATIVE NEGATIVE 09/26/2017 [facility] Urine nitrite detection Urine nitrite detection NEGATIVE NEGATIVE 09/26/2017 [facility] Urine pH measurement by automated test strip Urine pH measurement by automated test strip 7 5 - 7 09/26/2017 [facility] Urine protein measurement by test strip (mass/volume) Urine protein measurement by test strip (mass/volume) NEGATIVE NEGATIVE 09/26/2017 [facility] Urine total bilirubin measurement (mass/volume) Urine total bilirubin measurement (mass/volume) NEGATIVE NEGATIVE 09/26/2017 [facility] Urine urobilinogen measurement by test strip (mass/volume) Urine urobilinogen measurement by test strip (mass/volume) 0.2 0.2 - 1 09/26/2017 [facility] Breast Mammo Scrn DION incl CAD MA Breast Mammo Scrn DION incl CAD MA - BREAST MAMMO SCRN DION INCL CAD MA BILATERAL DIGITAL SCREENING MAMMOGRAM WITH CAD: 03/01/2017 CLINICAL: /Z12.31 Encounter For Screening Mammogram For Malignant Neoplasm Of Breast. Current study was evaluated with a Computer Aided Detection (CAD) system. Comparison is made to exams dated: 02/27/2016 mammogram, 02/05/2015 mammogram, 11/14/2013 mammogram, 06/11/2011 mammogram and 10/10/2008 mammogram - [facility]. There are scattered fibroglandular densities in both breasts. There are benign calcifications in both breasts. No significant masses, calcifications, or other findings are seen in either breast. There has been no significant interval change. IMPRESSION: BENIGN There is no mammographic evidence of malignancy. A 1 year screening mammogram is recommended. Jeferson Mondragon M.D. ap/penrad:03/01/2017 08:25:29 Furniture Technician: Chuyita Hughes RT (R)(M), [facility] This exam was dictated and interpreted by [id number] for [facility], 12. letter sent: Normal exam Mammogram BI-RADS: 2 Benign 03/01/2017 - - Read by: Jeferson Mondragon MD Dictated Date/time: 03/01/17 08:25 Electronically Signed by: Jeferson Mondragon MD 03/01/17 08:25 FINAL REPORT [facility] HEMATOLOGY Lymphocytes # 1.4 K/CMM 1.0 - 5.5 05/21/2016 [facility] HEMATOLOGY Eosinophils # 0.2 K/CMM 0.0 - 0.5 05/21/2016 [facility] HEMATOLOGY Monocytes # 1.0 K/CMM 0.0 - 0.8 05/21/2016 [facility] HEMATOLOGY Segs-Bands # 6.2 K/CMM 1.5 - 8.1 05/21/2016 [facility] HEMATOLOGY Monocytes 10.9 % 2.0 - 12.0 05/21/2016 [facility] HEMATOLOGY Basophils 0.4 % 0.0 - 1.0 05/21/2016 [facility] HEMATOLOGY Eosinophils 2.5 % 0.0 - 4.0 05/21/2016 [facility] HEMATOLOGY Segs 70.6 % 45.0 - 75.0 05/21/2016 [facility] HEMATOLOGY Lymphocytes 15.6 % 20.0 - 40.0 05/21/2016 [facility] HEMATOLOGY Platelet 250 K/CMM 133 - 450 05/21/2016 [facility] HEMATOLOGY MPV 8.9 fL 7.4 - 10.4 05/21/2016 [facility] HEMATOLOGY MCV 85.3 fL 80.0 - 98.0 05/21/2016 [facility] HEMATOLOGY MCHC 34.2 g/dL 32.0 - 36.0 05/21/[address] [facility] [place] [place] HEMATOLOGY Hct 32.1 % 36.0 - 48.0 05/21/2016 [facility] HEMATOLOGY RDW 13.8 % 11.5 - 14.5 05/21/2016 [facility] HEMATOLOGY WBC 8.8 K/CMM 3.7 - 10.4 05/21/2016 [facility] HEMATOLOGY Hgb 11.0 g/dL 12.0 - 16.0 05/21/2016 [facility] HEMATOLOGY RBC 3.77 M/CMM 4.20 - 5.40 05/21/2016 [facility] HEMATOLOGY MCH 29.1 pg 27.0 - 31.0 05/21/2016 [facility] HEMATOLOGY Monocytes 6.2 % 2.0 - 12.0 05/20/2016 [facility] HEMATOLOGY Lymphocytes 6.5 % 20.0 - 40.0 05/20/2016 [facility] HEMATOLOGY Basophils 0.1 % 0.0 - 1.0 05/20/2016 [facility] HEMATOLOGY Segs 87.2 % 45.0 - 75.0 05/20/2016 [facility] HEMATOLOGY Segs-Bands # 11.9 K/CMM 1.5 - 8.1 05/20/2016 [facility] HEMATOLOGY Lymphocytes # 0.9 K/CMM 1.0 - 5.5 05/20/2016 [facility] HEMATOLOGY Monocytes # 0.8 K/CMM 0.0 - 0.8 05/20/2016 [facility] HEMATOLOGY RDW 13.9 % 11.5 - 14.5 05/20/2016 [facility] HEMATOLOGY Platelet 269 K/CMM 133 - 450 05/20/[address] [facility] [place] [place] HEMATOLOGY MCH 28.2 pg 27.0 - 31.0 05/20/[address] [facility] [place] [place] HEMATOLOGY MCHC 32.8 g/dL 32.0 - 36.0 05/20/2016 [facility] HEMATOLOGY MPV 9.2 fL 7.4 - 10.4 05/20/[address] [facility] [place] [place] HEMATOLOGY WBC 13.6 K/CMM 3.7 - 10.4 05/20/2016 [facility] HEMATOLOGY MCV 85.9 fL 80.0 - 98.0 05/20/2016 [facility] HEMATOLOGY Hct 38.3 % 36.0 - 48.0 05/20/2016 [facility] HEMATOLOGY RBC 4.46 M/CMM 4.20 - 5.40 05/20/2016 [facility] HEMATOLOGY Hgb 12.6 g/dL 12.0 - 16.0 05/20/2016 [facility] Chest 1view DX Chest 1view DX History: Coughing. COMPARISON: 03/13/2007. FINDINGS: Views: 1 LUNGS: There is normal lung volume. Left lower lobe atelectasis or infiltrate. There are no pleural effusions. There is no pneumothorax. The pulmonary vasculature is normal. MEDIASTINUM: The cardiac silhouette is enlarged. The trachea is midline. BONES: Lower cervical fusion. IMPRESSION: Left lower lobe atelectasis or infiltrate. 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 Hardware appears to be in reasonable anatomic position, without evidence for periprosthetic lucency or new fracture. There are postsurgical changes within the soft tissues, consistent with the immediate postoperative state. SL: JGOLDSTEINCLEMENT 05/19/2016 - - Read by: Juni Kowalski MD Dictated Date/time: 05/19/16 16:30 Electronically Signed by: Juni Kowalski MD 05/19/16 16:34 FINAL REPORT [facility] BLOOD BANK RESULTS Antibody Scrn Negative (05/19/16 9:04 AM) 05/19/2016 [facility] BLOOD BANK RESULTS ABO/Rh AB POS 05/19/2016 [facility] HEMATOLOGY PTT 30.0 s 22.9 - 35.8 05/19/2016 [facility] HEMATOLOGY INR 0.87 0.85 - 1.17 05/19/2016 [facility] HEMATOLOGY PT 12.0 s 12.0 - 14.7 05/19/2016 [facility] URINE AND STOOL UA Mucus Rare /LPF None Seen /LPF 05/19/2016 [facility] URINE AND STOOL UA Bili Negative *NA* (05/19/16 9:04 AM) Negative 05/19/2016 [facility] URINE AND STOOL UA Ketones Negative *NA* (05/19/16 9:04 AM) Negative 05/19/2016 [facility] URINE AND STOOL UA Urobilinogen 0.2 EU/dL 0.1 - 1.0 05/19/2016 [facility] URINE AND STOOL UA Nitrite Negative (05/19/16 9:04 AM) Negative 05/19/2016 [facility] URINE AND STOOL UA Glucose Negative (05/19/16 9:04 AM) Negative 05/19/2016 [facility] URINE AND STOOL UA Spec Grav 1.010 <=1.030 05/19/2016 [facility] URINE AND STOOL UA Turbidity Clear (05/19/16 9:04 AM) Clear 05/19/2016 [facility] URINE AND STOOL UA Protein Negative (05/19/16 9:04 AM) Negative 05/19/2016 [facility] URINE AND STOOL UA pH 6.0 5.0 - 8.0 05/19/2016 [facility] URINE AND STOOL UA Blood Negative (05/19/16 9:04 AM) Negative 05/19/2016 [facility] URINE AND STOOL UA Color Yellow *NA* (05/19/16 9:04 AM) Yellow 05/19/2016 [facility] URINE AND STOOL UA Leuk Est Small *ABN* (05/19/16 9:04 AM) Negative 05/19/2016 [facility] URINE AND STOOL Micro? Performed (05/19/16 9:04 AM) 05/19/2016 [facility] URINE AND STOOL UA WBC 3-5 /HPF None Seen /HPF 05/19/2016 [facility] URINE AND STOOL UA Sq Epi Few /LPF Few /LPF 05/19/2016 [facility] URINE AND STOOL UA Bacteria Few /HPF None Seen /HPF 05/19/2016 [facility] URINE AND STOOL UA RBC 0-2 /HPF 0 - 2 05/19/2016 [facility] CHEM PANEL Calcium Lvl 8.7 mg/dL 8.5 - 10.5 05/13/2016 [facility] CHEM PANEL CO2 28 meq/L 24 - 32 05/13/2016 [facility] CHEM PANEL Chloride Lvl 104 meq/L 95 - 109 05/13/2016 [facility] CHEM PANEL eGFR 62 mL/min/1.73m2 05/13/2016 Result Comment: The eGFR is calculated using the [...] from the National Kidney Disease Education Program (NKDEP) which additionally recommends that when the eGFR is used in patients with extremes of body mass index for purposes of drug dosing, the eGFR should be multiplied by the estimated BMI. [facility] CHEM PANEL BUN 19 mg/dL 7 - 22 05/13/2016 [facility] CHEM PANEL Creatinine Lvl 0.98 mg/dL 0.50 - 1.40 05/13/2016 [facility] CHEM PANEL Glucose Lvl 81 mg/dL 70 - 99 05/13/2016 [facility] CHEM PANEL Sodium Lvl 142 meq/L 135 - 145 05/13/2016 [facility] CHEM PANEL Potassium Lvl 3.8 meq/L 3.5 - 5.1 05/13/2016 [facility] CHEM PANEL AGAP 13.8 meq/L 10.0 - 20.0 05/13/2016 [facility] HEMATOLOGY Eosinophils # 0.4 K/CMM 0.0 - 0.5 05/13/2016 [facility] HEMATOLOGY Monocytes # 0.7 K/CMM 0.0 - 0.8 05/13/2016 [facility] HEMATOLOGY Segs-Bands # 5.1 K/CMM 1.5 - 8.1 05/13/2016 [facility] HEMATOLOGY Basophils # 0.1 K/CMM 0.0 - 0.2 05/13/2016 [facility] HEMATOLOGY Lymphocytes # 2.4 K/CMM 1.0 - 5.5 05/13/2016 [facility] HEMATOLOGY Monocytes 8.1 % 2.0 - 12.0 05/13/2016 [facility] HEMATOLOGY Lymphocytes 27.7 % 20.0 - 40.0 05/13/2016 [facility] HEMATOLOGY Basophils 0.8 % 0.0 - 1.0 05/13/2016 [facility] HEMATOLOGY Eosinophils 4.1 % 0.0 - 4.0 05/13/2016 [facility] HEMATOLOGY Segs 59.3 % 45.0 - 75.0 05/13/2016 [facility] HEMATOLOGY MPV 9.6 fL 7.4 - 10.4 05/13/2016 [facility] HEMATOLOGY Hct 43.2 % 36.0 - 48.0 05/13/2016 [facility] HEMATOLOGY RDW 13.8 % 11.5 - 14.5 05/13/2016 [facility] HEMATOLOGY MCHC 33.1 g/dL 32.0 - 36.0 05/13/2016 [facility] HEMATOLOGY MCH 28.5 pg 27.0 - 31.0 05/13/2016 [facility] HEMATOLOGY MCV 86.1 fL 80.0 - 98.0 05/13/2016 [facility] HEMATOLOGY Platelet 361 K/CMM 133 - 450 05/13/2016 [facility] HEMATOLOGY Hgb 14.3 g/dL 12.0 - 16.0 05/13/2016 [facility] HEMATOLOGY RBC 5.02 M/CMM 4.20 - 5.40 05/13/2016 [facility] HEMATOLOGY WBC 8.6 K/CMM 3.7 - 10.4 05/13/2016 [facility] Knee wo contrast MRI Knee wo contrast MRI MR LEFT KNEE WITHOUT CONTRAST HISTORY: M25.569 Pain in unspecified knee, 61-year-old female reports left knee pain anteriorly and medially for approximately 3 weeks after injury during fall, no prior left knee surgery COMPARISON: Left knee MRI dated 10/18/2007 TECHNIQUE: Multiplanar, multisequence noncontrast imaging of the knee. FINDINGS: MENISCI: 1. Medial meniscus: Progressive degenerative macerated tearing of the posterior root and horn of the medial meniscus since the prior exam. There is moderate medial meniscal extrusion from the joint. 2. Lateral meniscus: Intact. CARTILAGE: 3. Medial compartment cartilage: Extensive severe chronic full-thickness cartilage loss has developed in the medial compartment since the prior MRI but with only trace subchondral cystic change. No subarticular marrow edema. 4. Lateral compartment cartilage: Weightbearing cartilage in the lateral compartment is preserved but there is a focal severe chronic chondromalacia involving the far posterior superior aspect of the lateral femoral condyle articular surface with prominent reactive subchondral marrow edema (axial series 3 image 16). 5. Patellofemoral cartilage: Moderate to severe irregular cartilage thinning of the medial patellar facet and patellar apex with mild associated subchondral cystic change and marrow edema. CRUCIATE LIGAMENTS: 6. Anterior cruciate ligament: Mild degenerative signal in the ACL without discrete tear. 7. Posterior cruciate ligament: Normal. COLLATERAL LIGAMENTS: 8. Medial collateral ligament complex: Prominent thickening and inflammatory signal within the femoral attachment of the tibial collateral ligament with mild associated reactive marrow edema in the medial femoral condyle, likely acute grade 2 medial collateral ligament sprain. 9. Lateral collateral ligament complex: Normal. EXTENSOR MECHANISM: 10. Intact patellar and quadriceps tendons. 11. No patellar tilt or subluxation. OTHER: 12. No fracture is seen. 13. Moderate arthropathic marrow edema in the proximal tibia at the tibiofibular joint. 14. Small joint effusion is present. IMPRESSION: 1. Marked thickening and inflammatory signal in the femoral attachment of the tibial collateral ligament with mild reactive marrow edema in the medial femoral condyle, likely acute grade 2 medial collateral ligament sprain. 2. Progressive severe degenerative macerated tearing of the posterior root attachment and posterior horn of the medial meniscus with meniscus extrusion. 3. Development of severe medial compartment chondromalacia but with only trace subchondral cystic change. 4. Focal severe chondromalacia involving the far posterior lateral cartilage of the lateral femoral condyle with prominent associated subarticular reactive marrow edema. 5. 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 6. Small joint effusion, degenerative signal in the ACL, and mild marrow edema at the proximal tibiofibular joint. Thank you for referring your patient to [facility] and [facility]. : [id number] 02/27/2016 - - Read by: Will Duron MD Dictated Date/time: 02/28/16 07:39 Electronically Signed by: Will Duron MD 02/28/16 07:50 FINAL REPORT [facility] Digital Mammo Screening Dion MA Digital Mammo Screening Dion MA - DIGITAL MAMMO SCREENING DION MA BILATERAL DIGITAL SCREENING MAMMOGRAM WITH CAD: 02/27/2016 CLINICAL: Z12.31 Encounter For Screening Mammogram For Malignant Neoplasm Of Breast. Current study was evaluated with a Computer Aided Detection (CAD) system. Comparison is made to exams dated: 02/05/2015 mammogram, 11/14/2013 mammogram and 06/11/2011 mammogram - [facility]. There are scattered fibroglandular densities in both breasts. There are benign calcifications in both breasts. No significant masses, calcifications, or other findings are seen in either breast. There has been no significant interval change. IMPRESSION: BENIGN There is no mammographic evidence of malignancy. A 1 year screening mammogram is recommended. Jeferson Mondragon M.D. ap/penrad:02/28/2016 14:01:16 Furniture Technician: Renee Schultz RT(R)(M), [facility] This exam was dictated and interpreted by [id number] for [facility], 12. letter sent: Normal exam Mammogram BI-RADS: 2 Benign 02/27/2016 - - Read by: Jeferson Mondragon MD Dictated Date/time: 02/28/16 14:01 Electronically Signed by: Jeferson Mondragon MD 02/28/16 14:01 FINAL REPORT [facility] Digital Mammo Screening Dion MA Digital Mammo Screening Dion MA - DIGITAL MAMMO SCREENING DION MA BILATERAL DIGITAL SCREENING MAMMOGRAM WITH CAD: 02/05/2015 CLINICAL: Screening. Current study was evaluated with a Computer Aided Detection (CAD) system. Comparison is made to exams dated: 11/14/2013 mammogram and 06/11/2011 mammogram - [facility]. There are scattered fibroglandular densities in both breasts. There are benign calcifications in both breasts. No significant masses, calcifications, or other findings are seen in either breast. There has been no significant interval change. IMPRESSION: BENIGN There is no mammographic evidence of malignancy. A 1 year screening mammogram is recommended. Jeferson Mondragon M.D. ap/penrad:02/06/2015 10:42:32 Furniture Technician: Roseann Ly RT(R)(M), [facility] This exam was dictated and interpreted by [id number] for [facility], 12. 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 High-resolution images of the pulmonary parenchymal were obtained. The central tracheobronchial tree is grossly normal. There is no acute pulmonary parenchymal consolidative opacity noted. No pericardial or pleural fluid collection. The heart is mildly enlarged associated with coronary artery calcifications. No chronic interstitial disease or bronchiectasis is noted. Plate and screw fixation is noted at the cervicothoracic junction. Mild thoracic spondylosis. There is no mediastinal or hilar adenopathy noted. The caliber of the thoracic aorta is nonaneurysmal. Vascular calcification is noted at the thoracic aorta. Incidental images of the upper abdomen demonstrate surgical clips at the gallbladder fossa status post cholecystectomy as well as a few colonic diverticula. IMPRESSION: 1. No evidence of chronic interstitial lung disease. 2. No bronchiectasis 3. Mild cardiomegaly is noted associated with coronary artery calcifications. 4. No acute abnormality at the chest is noted. SL:12 01/21/2015 - - Read by: Kermit Charles MD Dictated Date/time: 01/21/15 08:07 Electronically Signed by: Kermit Charles MD 01/21/15 08:13 FINAL REPORT [facility] Sinus paranasal series DX Sinus paranasal series DX PARANASAL SINUSES (4 views) HISTORY: Sinusitis, COPD, cough. COMMENT: Frontal (Gonsalez), [place]', lateral, and submental-vertex views of the paranasal sinuses were obtained. FINDINGS: The paranasal sinuses are well developed and well-aerated. There is no evidence of mucoperiosteal thickening, mass, fluid, or bony destruction. Postoperative change are noted about the cervical spine. A fusion plate is noted. CONCLUSION: 1. Negative paranasal sinuses. 2. Postoperative changes involving the cervical spine. Coding: Sinus paranasal series CPT code: 43005 SL: 12 Addison Castillo M.D. 12/28/2014 - - Read by: Addison Castillo MD Dictated Date/time: 12/28/14 14:37 Electronically Signed by: Addison Castillo MD 12/28/14 14:40 FINAL REPORT [facility] Vital Signs Vital Sign Value Date Comments Source Respitory Rate 20 12/16/2017 [facility] Systolic (mm Hg) 117 12/16/2017 [facility] Diastolic (mm Hg) 66 12/16/2017 [facility] Systolic (mm Hg) 103 12/16/2017 [facility] Diastolic (mm Hg) 52 12/16/2017 [facility] Respitory Rate 26 12/16/2017 [facility] Respitory Rate 19 12/16/2017 [facility] Systolic (mm Hg) 168 12/16/2017 [facility] Diastolic (mm Hg) 91 12/16/2017 [facility] Heart Rate 66 12/16/2017 [facility] BMI Calculated 38.55 12/15/2017 [facility] Weight 89.545 12/15/2017 [facility] Heart Rate 66 12/15/2017 [facility] Temperature Oral (F) 98.1 F 12/15/2017 [facility] Height 152.4 cm 12/15/2017 [facility] Systolic (mm Hg) 115 05/25/2016 [facility] Diastolic (mm Hg) 72 05/25/2016 [facility] Heart Rate 79 05/25/2016 [facility] Respitory Rate 19 05/25/2016 [facility] Temperature Oral (F) 98.2 F 05/25/2016 [facility] Systolic (mm Hg) 109 05/25/2016 [facility] Diastolic (mm Hg) 75 05/25/2016 [facility] Respitory Rate 19 05/25/2016 [facility] Heart Rate 86 05/25/2016 [facility] Temperature Oral (F) 98.1 F 05/25/2016 [facility] Temperature Oral (F) 97.9 F 05/25/2016 [facility] Heart Rate 85 05/25/2016 [facility] Respitory Rate 20 05/25/2016 [facility] Systolic (mm Hg) 120 05/25/2016 [facility] Diastolic (mm Hg) 75 05/25/2016 [facility] Weight 93.364 05/13/2016 [facility] Height 149.86 cm 05/13/2016 [facility] BMI Calculated 41.57 05/13/2016 [facility] Height 152.4 cm 01/21/2015 [facility] BMI Calculated 39.53 01/21/2015 [facility] Weight 91.818 01/21/2015 [facility] Encounters Location Location Details Encounter Type Encounter Number Reason For Visit Attending Provider ADM Date DC Date Status Source [facility] Outpatient [id number] Sangeeta Matos 12/28/2014 12/29/2014 [facility] Outpatient [id number] Najmautcheo Fung 01/21/2015 01/22/2015 [facility] Outpatient [id number] Sangeeta Matos 02/05/2015 02/06/2015 [facility] Outpatient [id number] Sangeeta Matos 02/27/2016 02/28/2016 [facility] Outpatient [id number] Ephraim Jazmyne 02/27/2016 02/28/2016 [facility] Inpatient [id number] Ephraim Jazmyne 05/19/2016 05/25/2016 [facility] OP Therapy Patients [id number] Ephraim Samano 08/21/2016 09/20/2016 [facility] Outpatient [id number] Sangeeta Matos 03/01/2017 03/02/2017 [facility] Outpatient [id number] Sangeeta Matos 03/17/2017 03/18/2017 [facility] Outpatient [id number] Najmautcheo Fung 03/31/2017 04/01/2017 [facility] Discharged Inpatient (obs) [id number] QUIN MADSEN MD 09/26/2017 09/27/2017 [facility] Neurology [facility] Ambulatory Pre-Reg [id number] Lexi Goel 12/08/2017 12/08/2017 [facility] Neuro [facility] Emergency [id number] Zara Esposito 12/15/2017 12/16/2017 [facility] Outpatient [id number] Sangeeta Matos 08/16/2018 08/17/2018 [facility] Procedures Procedure Code Date Perfomer Comments Source Computed tomography of brain without radiopaque contrast [id number] 09/26/2017 [facility] Cardiac catheterisation [id number] 04/06/2016 [facility] Cardiac catheterisation [id number] 04/06/2016 [facility] Cardiac catheterisation [id number] 04/06/2016 [facility] Neuro Cervical laminectomy [id number] 06/21/2003 [facility] Cervical laminectomy [id number] 06/21/2003 [facility] Cervical laminectomy [id number] 06/21/2003 [facility] Carpal tunnel<sup>1</sup> [id number] 06/21/1998 rt wrist [facility] Carpal tunnel<sup>1</sup> [id number] 06/21/1998 rt wrist [facility] Carpal tunnel<sup>1</sup> [id number] 06/21/1998 rt wrist [facility] Bunionectomy [id number] 06/21/1994 [facility] Bunionectomy [id number] 06/21/1994 [facility] Bunionectomy [id number] 06/21/1994 [facility] Laparoscopic cholecystectomy [id number] 06/21/1984 [facility] Laparoscopic cholecystectomy [id number] 06/21/1984 [facility] Laparoscopic cholecystectomy [id number] 06/21/1984 [facility] Hysterectomy [id number] 06/21/1979 [facility] Tonsillectomy [id number] 06/21/1979 [facility] Hysterectomy [id number] 06/21/1979 [facility] Tonsillectomy [id number] 06/21/1979 [facility] Hysterectomy [id number] 06/21/1979 [facility] Tonsillectomy [id number] 06/21/1979 [facility]
--- OUTSIDE RECORDS SUMMARY | 2018-08-27 11:20 | XMS REPORT | Summary of Care ---
Author Author [facility] Organization [facility] Address Unknown Phone Unavailable Encounter HQ Encntr_alias(FIN) [id number] Date(s): 02/05/15 - 02/05/15 [facility] [address] [place] [address]- Discharge Disposition: Home Attending Physician: Sangeeta Matos MD Referring Physician: Sangeeta Matos MD Vital Signs No data available for this section Problem List Condition Effective Dates Status Health Status Informant Fracture of 09/10/08 Active humerus1, 2 1Data migrated from [employer] on 11/20/14. 2Data migrated from [employer] on 11/20/14. Allergies, Adverse Reactions, Alerts Substance Reaction Severity Status NKDA Active Medications No data available for this section Results No data available for this section Immunizations No data available for this section Procedures No data available for this section Social History Social History Type Response Assessment and Plan No data available for this section
--- OUTSIDE RECORDS SUMMARY | 2018-08-27 11:20 | XMS REPORT | Summary of Care ---
Author Author [facility] Organization [facility] Address Unknown Phone Unavailable Encounter HQ Dara(FIN) [id number] Date(s): 03/01/17 - 03/01/17 [facility] [address] [place] [address]- Final: Encounter for screening mammogram for malignant neoplasm of breast Discharge Disposition: Home or Self Care Attending [...] Resolved Sleep Active apnea(Confirmed) 1Data migrated from [employer] on 11/20/14. 2Data migrated from [employer] on 11/20/14. Allergies, Adverse Reactions, Alerts Substance [...] 1998 Bunionectomy 1994 Laparoscopic cholecystectomy 1985 Hysterectomy 1980 Tonsillectomy 1980 1rt wrist Social History Social [...]
--- OUTSIDE RECORDS SUMMARY | 2018-08-27 11:20 | XMS REPORT | Summary of Care ---
Author Author [facility] Organization [facility] Address Unknown Phone Unavailable Encounter HQ Dara(FIN) [id number] Date(s): 03/31/17 - 03/31/17 [facility] [address] [place] [address]- [phone] Discharge Disposition: Home or Self Care Attending Physician: Briseida Fung MD Referring Physician: Briseida Fung MD Vital Signs No data available for this section Problem List Condition Effective Dates Status Health Status Informant Hayfever(Confirmed) Active Anemia(Confirmed) Resolved Anxiety(Confirmed) Resolved Knee pain(Confirmed) Active Bronchitis(Confirmed Resolved ) Fracture of 09/10/08 Active humerus1, 2 Reflux Active esophagitis(Confirme d) HTN Active (hypertension)(Confi rmed) Arthritis(Confirmed) Active Pneumonia(Confirmed) Resolved Sleep Active apnea(Confirmed) 1Data migrated from [employer] on 11/20/14. 2Data migrated from [employer] on 11/20/14. Allergies, Adverse Reactions, Alerts Substance [...] Carpal tunnel1 1998 Bunionectomy 1994 Laparoscopic cholecystectomy 1984 Hysterectomy 1979 Tonsillectomy 1980 1rt wrist Social [...]
--- OUTSIDE RECORDS SUMMARY | 2018-08-27 11:20 | XMS REPORT | Summary of Care ---
Author Author [facility] Organization [facility] Address Unknown Phone Unavailable Encounter HQ Encntr_alias(FIN) [id number] Date(s): 02/27/16 - 02/27/16 [facility] [address] [place] [address]- Discharge Disposition: Home or Self Care Attending Physician: Ephraim Samano MD Referring Physician: Ephraim Samano MD Vital Signs No data available for this section Problem List Condition Effective Dates Status Health Status Informant Fracture of 09/10/08 Active humerus1, 2 1Data migrated from [employer] on 11/20/14. 2Data migrated from [employer] on 11/20/14. Allergies, Adverse Reactions, Alerts Substance Reaction Severity Status NKDA Active Medications No data available for this section Results No data available for this section Immunizations No data available for this section Procedures No data available for this section Social History Social History Type Response Assessment and Plan No data available for this section
--- OUTSIDE RECORDS SUMMARY | 2018-08-27 11:21 | XMS REPORT | Summary of Care ---
Author Author [facility] Organization [facility] Address Unknown Phone Unavailable Encounter HQ Dara(JONA) [id number] Date(s): 05/19/16 - 05/25/16 [facility] [address] [place] [address]- Final: Other tear of medial meniscus, current injury, unspecified knee, initial encounter Discharge Disposition: Home or Self Care Attending Physician: Ephraim Samano MD Admitting Physician: Ephraim Samano MD Referring Physician: Ephraim Samano MD Vital Signs 1 2 3 Most recent to oldest [Reference Range]: 149.86 cm (05/13/16 4:10 PM) Height 98.2 DegF (05/25/16 11:17 AM) 98.1 DegF (05/25/16 7:23 AM) 97.9 DegF (05/25/16 5:03 AM) Temperature Oral [96.4-99.1 DegF] 115/72 mmHg (05/25/16 11:17 AM) 109/75 mmHg (05/25/16 7:23 AM) 120/75 mmHg (05/25/16 5:03 AM) Blood Pressure [90-140/60-90 mmHg] 19 BRMIN (05/25/16 11:17 AM) 19 BRMIN (05/25/16 7:23 AM) 20 BRMIN (05/25/16 5:03 AM) Respiratory Rate [14-20 BRMIN] 79 bpm (05/25/16 11:17 AM) 86 bpm (05/25/16 7:23 AM) 85 bpm (05/25/16 5:03 AM) Peripheral Pulse Rate [60-100 bpm] 93.364 kg (05/13/16 4:10 PM) Weight 41.57 m2 (05/13/16 4:10 PM) Body Mass Index Problem List Condition Effective Dates Status Health Status Informant Hayfever(Confirmed) Active Anemia(Confirmed) Resolved Anxiety(Confirmed) Resolved Knee pain(Confirmed) Active Bronchitis(Confirmed Resolved ) Fracture of 09/10/08 Active humerus1, 2 Reflux Active esophagitis(Confirme d) HTN Active (hypertension)(Confi rmed) Arthritis(Confirmed) Active Pneumonia(Confirmed) Resolved Sleep Active apnea(Confirmed) 1Data migrated from [employer] on 11/20/14. 2Data migrated from [employer] on 11/20/14. Allergies, Adverse Reactions, Alerts Substance Reaction Severity Status meloxicam Active Medications acetaminophen 650 mg, 2 tab, Route: PO, Drug form: TAB, ONCE, Dosing Weight 93.364, kg, Start date: 05/25/16 13:04:00 ROCK [employer]ON APPRENTICE, Stop date: 05/25/16 13:04:00 ROCK [employer] APPRENTICE, .. Notes: Do not exceed 4 gm/day. (Same as: Tylenol) Start Date: 05/25/16 Stop Date: 05/25/16 Status: Ordered acetaminophen (ANES) Route: IV, Drug form: INJ, ONCE, Stop date: 05/19/16 14:52:00 ROCK [employer] APPRENTICE Start Date: 05/19/16 Stop Date: 05/19/16 Status: Completed Al hydroxide/Mg hydroxide/simethicone 200 mg-200 mg-20 mg/5 mL oral suspension 30 mL, Route: PO, Drug Form: SUSP, Dosing Weight 93.364, kg, Q4H, PRN Indigestio n, Start date: 05/19/16 15:32:00 ROCK [employer]ON APPRENTICE, Duration: 30 day, Stop date: 06/18/16 15:3 1:00 ROCK [employer]ON APPRENTICE Notes: (aluminum hydroxide-magnesium hyd-simethicone [phone]/5ml 30 ml ud S US) Start Date: 05/19/16 Stop Date: 05/25/16 Status: Discontinued amLODIPine 2.5 mg, 1 tab, Route: PO, Drug form: TAB, Daily, Dosing Weight 93.364, kg, Start date: 05/20/16 9:00:00 ROCK [employer]ON APPRENTICE, Duration: 30 day, Stop date: 06/18/16 9:00:00 ROCK [employer]ON APPRENTICE Notes: (Same as: Norvasc) Start Date: 05/20/16 Stop Date: 05/25/16 Status: Discontinued amLODIPine 2.5 mg oral tablet 2.5 mg=1 tab, PO, Daily, # 30 tab, 0 Refill(s) Start Date: 05/13/16 Status: Ordered Bactrim DS 800 mg- 160 mg oral tablet 1 tab, PO, BID, X 7 day, # 14 tab, 0 Refill(s), Pharmacy: [id number] Start Date: 05/25/16 Stop Date: 06/01/16 Status: Ordered bisacodyl 10 mg, 1 supp, Route: MI, Drug form: SUPP, Daily, Dosing Weight 93.364, kg, PRN Constipation, Start date: 05/19/16 15:32:00 ROCK [employer]ON APPRENTICE, Duration: 30 day, Stop date: 15:31:00 ROCK MASON APPRENTICE Notes: (Same As: Dulcolax, Bisco-Lax) Start Date: 05/19/16 Stop Date: 05/25/16 Status: Discontinued bupivacaine (ANES) Route: INTRATHECAL, Drug Form: INJ, ONCE, Stop date: 05/19/16 14:16:00 ROCK MASON APPRENTICE Start Date: 05/19/16 Stop Date: 05/19/16 Status: Completed ceFAZolin (ANES) Route: IV, Drug form: INJ, ONCE, Stop date: 05/19/16 13:54:00 ROCK [employer]ON APPRENTICE Start Date: 05/19/16 Stop Date: 05/19/16 Status: Completed ceFAZolin (SCIP) + sodium chloride 0.9% INJ 100 mL 1 gm, Route: IVPB, Q6H, Dosing Weight 93.364, kg, Start date: 05/19/16 18:00:00 ROCK [employer] APPRENTICE, Duration: 3 doses or times, Stop date: 05/20/16 6:00:00 ROCK [employer]ON APPRENTICE Notes: (Same As: Ancef, Kefzol) MEDICATION WASTE Product Size: 1000 mgP roduct Wasted: ___ mg Start Date: 05/19/16 Stop Date: 05/19/16 Status: Deleted ceFAZolin (SCIP) + sodium chloride 0.9% INJ 100 mL 1 gm, Route: IVPB, Q6H, Dosing Weight 93.364, kg, Start date: 05/19/16 21:00:00 ROCK [employer]ON APPRENTICE, Duration: 3 doses or times, Stop date: 05/20/16 9:00:00 ROCK [employer]ON APPRENTICE Notes: (Same As: Erin Toussaintzol) MEDICATION WASTE Product Size: 1000 mgP roduct Wasted: ___ mg Start Date: 05/19/16 Stop Date: 05/20/16 Status: Completed celecoxib 200 mg, 1 cap, Route: PO, Drug form: CAP, [id number], Dosing Weight 93.364, kg, Sta rt date: 05/19/16 16:00:00 ROCK [employer]ON APPRENTICE, Duration: 30 day, Stop date: 06/18/16 4:00:00 CS T Notes: NSAID. Please check indication. Not for seizure. (Same As: CeleBREX) Start Date: 05/19/16 Stop Date: 05/25/16 Status: Discontinued cyanocobalamin 1000 mcg sublingual tablet 1,000 microgram=1 tab, PO, Daily, 0 Refill(s) Start Date: 05/21/16 Status: Ordered dexamethasone (ANES) Route: IV, Drug form: INJ, ONCE, Stop date: 05/19/16 14:21:00 ROCK [employer] APPRENTICE Start Date: 05/19/16 Stop Date: 05/19/16 Status: Completed docusate 100 mg, 1 cap, Route: PO, Drug form: CAP, BID, Dosing Weight 93.364, kg, Start d ate: 05/19/16 17:00:00 ROCK [employer]ON APPRENTICE, Duration: 30 day, Stop date: 06/18/16 9:00:00 ROCK [employer]ON APPRENTICE Notes: (Same as: Colace) (Do Not Crush) Start Date: 05/19/16 Stop Date: 05/25/16 Status: Discontinued famotidine (ANES) Route: IV, Drug form: INJ, ONCE, Stop date: 05/19/16 14:21:00 ROCK [employer] APPRENTICE Start Date: 05/19/16 Stop Date: 05/19/16 Status: Completed fentaNYL (ANES) Route: IV, Drug form: INJ, ONCE, Stop date: 05/19/16 13:42:00 ROCK [employer] APPRENTICE Start Date: 05/19/16 Stop Date: 05/19/16 Status: Completed fentaNYL (ANES) Route: IV, Drug form: INJ, ONCE, Stop date: 05/19/16 15:55:00 ROCK [employer]ON APPRENTICE Start Date: 05/19/16 Stop Date: 05/19/16 Status: Completed gabapentin 300 mg, 1 cap, Route: PO, Drug form: CAP, Q8Hnow, Dosing Weight 93.364, kg, Star t date: 05/19/16 16:00:00 ROCK [employer] APPRENTICE, Duration: 30 day, Stop date: 06/18/16 8:00:00 ROCK MASON APPRENTICE Notes: (Same as: Neurontin) Start Date: 05/19/16 Stop Date: 05/25/16 Status: Discontinued GI cocktail 30 ml, Route: PO, Drug Form: SUSP, Dosing Weight 93.364, kg, TID, NOW, Start hamzah e: 05/21/16 9:32:00 ROCK [employer]ON APPRENTICE, Duration: 30 day, Stop date: 06/20/16 9:00:00 ROCK MASON APPRENTICE Notes: G.I. Cocktail=antacid with simethicone 22.5 mL - lidocaine viscous 7.5 mL Start Date: 05/21/16 Stop Date: 05/25/16 Status: Discontinued hydrochlorothiazide 25 mg oral tablet 25 mg=1 tab, PO, Daily, # 30 tab, 0 Refill(s) Start Date: 05/13/16 Status: Ordered hydrochlorothiazide 25 mg oral tablet 25 mg, 1 tab, Route: PO, Drug form: TAB, Daily, Dosing Weight 93.364, kg, Start date: 05/20/16 9:00:00 ROCK MASON APPRENTICE, Duration: 30 day, Stop date: 06/18/16 9:00:00 ROCK [employer]ON APPRENTICE Notes: (Same as: Hydrodiuril) With food. Start Date: 05/20/16 Stop Date: 05/25/16 Status: Discontinued ketOROLAC (ANES) IV, ONCE Start Date: 05/19/16 Stop Date: 05/19/16 Status: Completed Lactated Ringers 1,000 mL 1,000 mL, Rate: 25 ml/hr, Infuse over: 40 hr, Route: IV, Dosing Weight 93.364 kg , Total Volume: 1,000, Start date: 05/19/16 9:41:00 ROCK MASON APPRENTICE, Duration: 30 day, Stop date: 06/18/16 9:40:00 ROCK [employer]ON APPRENTICE Start Date: 05/19/16 Stop Date: 05/19/16 Status: Discontinued lidocaine (ANES) Route: IV, Drug form: INJ, ONCE, Stop date: 05/19/16 13:42:00 ROCK MASON APPRENTICE Start Date: 05/19/16 Stop Date: 05/19/16 Status: Completed LR 1000 mL INJ (ANES) Route: IV, Total Volume: 1,000, Start date: 05/19/16 12:50:00 ROCK [employer]ON APPRENTICE, Stop date: 13:50:00 ROCK [employer] APPRENTICE Start Date: 05/19/16 Stop Date: 05/19/16 Status: Completed melatonin 3 mg, 1 tab, Route: PO, Drug form: TAB, Bedtime, Dosing Weight 93.364, kg, PRN I nsomnia, Start date: 05/19/16 15:32:00 ROCK MASON APPRENTICE, Duration: 30 day, Stop date: 6 15:31:00 ROCK MASON APPRENTICE Notes: (Same as: Melatonin) Start Date: 05/19/16 Stop Date: 05/25/16 Status: Discontinued methocarbamol 1,000 mg, 2 tab, Route: PO, Drug form: TAB, Q8H, Dosing Weight 93.364, kg, PRN M uscle Spasms, Start date: 05/19/16 15:32:00 ROCK MASON APPRENTICE, Duration: 30 day, Stop date: 15:31:00 ROCK MASON APPRENTICE Notes: (Same as:Robaxin) Start Date: 05/19/16 Stop Date: 05/25/16 Status: Discontinued methocarbamol 500 mg oral tablet 1,000 mg=2 tab, PO, Q8H, PRN Muscle Spasms, # 30 tab, 0 Refill(s), Pharmacy: [facility] [id number] Start Date: 05/21/16 Stop Date: 05/31/16 Status: Ordered metoclopramide (ANES) Route: IV, Drug form: INJ, ONCE, Stop date: 05/19/16 14:21:00 ROCK MASON APPRENTICE Start Date: 05/19/16 Stop Date: 05/19/16 Status: Completed midazolam (ANES) Route: IV, Drug form: SOLN, ONCE, Stop date: 05/19/16 13:31:00 ROCK MASON APPRENTICE Start Date: 05/19/16 Stop Date: 05/19/16 Status: Completed morphine Sulfate 2 mg, 1 mL, Route: IVP, Drug form: INJ, Q4H, Dosing Weight 93.364, kg, PRN Pain Score 7-10, Start date: 05/19/16 15:32:00 ROCK MASON APPRENTICE, Duration: 30 day, Stop date: 05/22 03/06 15:31:00 ROCK MASON APPRENTICE Notes: (Same as:MORPhine Sulfate) Start Date: 05/19/16 Stop Date: 05/25/16 Status: Discontinued morphine Sulfate (ANES) Route: IV, Drug form: INJ, ONCE, Stop date: 05/19/16 14:16:00 ROCK MASON APPRENTICE Start Date: 05/19/16 Stop Date: 05/19/16 Status: Completed morphine Sulfate (ANES) Route: INTRATHECAL, Drug form: INJ, ONCE, Stop date: 05/19/16 14:16:00 ROCK MASON APPRENTICE Start Date: 05/19/16 Stop Date: 05/19/16 Status: Completed multivitamin 1 tab, PO, Daily, 0 Refill(s) Start Date: 05/13/16 Status: Ordered mupirocin topical 1 appl, Route: NASAL, Q12H, Drug form: OINT, Start date: 05/19/16 21:00:00 ROCK MASON APPRENTICE, Duration: 30 day, Stop date: 06/18/16 9:00:00 ROCK MASON APPRENTICE Start Date: 05/19/16 Stop Date: 05/25/16 Status: Discontinued nalbuphine 2 mg, 0.2 mL, Route: IVP, Drug form: INJ, Q2H, Dosing Weight 93.364, kg, PRN Itc eugenie, Start date: 05/19/16 15:32:00 ROCK MASON APPRENTICE, Duration: 5 doses or times, Stop date: Limited # of times Notes: (Same As: Nubain) Start Date: 05/19/16 Stop Date: 05/25/16 Status: Discontinued [place] 10/325 oral tablet 1-2 tab, PO, PRN, PRN Pain, 1-2 tabs every every 6 hours as needed for pain, X 1 4 day, # 60 tab, 0 Refill(s) Start Date: 05/25/16 Stop Date: 06/08/16 Status: Ordered ondansetron 4 mg, 2 mL, Route: IVP, Drug form: INJ, Q8H, Dosing Weight 93.364, kg, PRN Nause a & Vomiting, Start date: 05/19/16 15:32:00 ROCK MASON APPRENTICE, Duration: 30 day, Stop date: 06/18/16 15:31:00 ROCK MASON APPRENTICE Notes: (Same as: Brian) MEDICATION WASTE Product Size: 4 mgProduct Was anand: ___ mg Start Date: 05/19/16 Stop Date: 05/25/16 Status: Discontinued ondansetron (ANES) Route: IV, Drug form: INJ, ONCE, Stop date: 05/19/16 14:21:00 ROCK MASON APPRENTICE Start Date: 05/19/16 Stop Date: 05/19/16 Status: Completed ondansetron (ANES) Route: IV, Drug form: INJ, ONCE, Stop date: 05/19/16 15:33:00 ROCK MASON APPRENTICE Start Date: 05/19/16 Stop Date: 05/19/16 Status: Completed oxyCODONE 5 mg immediate release 10 mg, 2 tab, Route: PO, Drug form: TAB, Q4H, Dosing Weight 93.364, kg, PRN Pain Score 7-10, Start date: 05/19/16 15:32:00 ROCK MASON APPRENTICE, Duration: 30 day, Stop date: 15:31:00 ROCK MASON APPRENTICE Notes: (Same as: Roxicodone) Start Date: 05/19/16 Stop Date: 05/25/16 Status: Discontinued oxyCODONE 5 mg immediate release 5 mg, 1 tab, Route: PO, Drug form: TAB, Q4H, Dosing Weight 93.364, kg, PRN Pain Score 4-6, Start date: 05/19/16 15:32:00 ROCK MASON APPRENTICE, Duration: 30 day, Stop date: 06/18 15:31:00 ROCK MASON APPRENTICE Notes: (Same as: Roxicodone) Start Date: 05/19/16 Stop Date: 05/25/16 Status: Discontinued Pepcid 40 mg oral tablet 40 mg, 2 tab, Route: PO, Drug form: TAB, Q12H, Dosing Weight 93.364, kg, Priorit y: NOW, Start date: 05/21/16 9:32:00 ROCK MASON APPRENTICE, Duration: 30 day, Stop date: 06/20/16 9:00:00 ROCK MASON APPRENTICE Notes: (Same as: Pepcid) Start Date: 05/21/16 Stop Date: 05/25/16 Status: Discontinued Pepcid 40 mg oral tablet 40 mg=1 tab, PO, BID, # 60 tab, 3 Refill(s), other Start Date: 05/25/16 Status: Ordered potassium chloride 20 mEq oral tablet, extended release 20 mEq=1 tab, PO, Daily, # 30 tab, 3 Refill(s) Start Date: 05/13/16 Status: Ordered propofol (ANES) Route: IV, Drug form: INJ, ONCE, Stop date: 05/19/16 13:42:00 ROCK MASON APPRENTICE Start Date: 05/19/16 Stop Date: 05/19/16 Status: Completed rivaroxaban 10 mg, 1 tab, Route: PO, Drug form: TAB, Q24H, Dosing Weight 93.364, kg, Start d ate: 05/19/16 21:39:00 ROCK MASON APPRENTICE, Duration: 30 day, Stop date: 06/17/16 9:00:00 ROCK MASON APPRENTICE Notes: (Same as: Xarelto)Do Not Crush Start Date: 05/19/16 Stop Date: 05/25/16 Status: Discontinued rivaroxaban 10 mg oral tablet 10 mg=1 tab, PO, Q24H, # 20 tab, 0 Refill(s), Pharmacy: [id number] Start Date: 05/21/16 Status: Ordered rocuronium (ANES) Route: IV, Drug form: INJ, ONCE, Stop date: 05/19/16 13:56:00 ROCK MASON APPRENTICE Start Date: 05/19/16 Stop Date: 05/19/16 Status: Completed sodium chloride 0.45% 1000 ml INJ 1,000 mL 1,000 mL, Rate: 75 ml/hr, Infuse over: 13.3 hr, Route: IV, Dosing Weight 93.364 kg, Total Volume: 1,000, Start date: 05/19/16 15:32:00 ROCK MASON APPRENTICE, Duration: 30 day, St op date: 06/18/16 15:31:00 ROCK MASON APPRENTICE Start Date: 05/19/16 Stop Date: 05/23/16 Status: Discontinued sodium chloride 0.45% 1000 ml INJ 1,000 mL 1,000 mL, Rate: 75 ml/hr, Infuse over: 13.3 hr, Route: IV, Dosing Weight 93.364 kg, Total Volume: 1,000, Start date: 05/23/16 3:33:00 ROCK MASON APPRENTICE, Duration: 30 day, Sto p date: 06/22/16 3:32:00 ROCK MASON APPRENTICE Start Date: 05/23/16 Stop Date: 05/23/16 Status: Discontinued tramadol 100 mg, 2 tab, Route: PO, Drug form: TAB, Q6Hnow, Dosing Weight 93.364, kg, Star t date: 05/19/16 16:00:00 ROCK MASON APPRENTICE, Duration: 30 day, Stop date: 06/18/16 10:00:00 CS T Notes: Not to exceed 400mg/day. (Same As: Ultram) Start Date: 05/19/16 Stop Date: 05/25/16 Status: Discontinued tramadol 50 mg oral tablet 100 mg=2 tab, PO, Q12H, # 30 tab, 0 Refill(s) Start Date: 05/21/16 Stop Date: 05/27/16 Status: Completed tranexamic acid (ANES) Route: IV, Drug form: INJ, ONCE, Stop date: 05/19/16 14:21:00 ROCK MASON APPRENTICE Start Date: 05/19/16 Stop Date: 05/19/16 Status: Completed Tylenol Arthritis Caplet 650 mg oral tablet, extended release 1,300 mg=2 tab, PO, Q8H, 0 Refill(s) Start Date: 05/19/16 Stop Date: 05/21/16 Status: Discontinued vancomycin (ANES) (ANES) Route: IV, Drug form: INJ, Start date: 05/19/16 13:21:00 ROCK MASON APPRENTICE, Stop date: 6 14:21:00 ROCK MASON APPRENTICE Start Date: 05/19/16 Stop Date: 05/19/16 Status: Completed vancomycin 500 mg + polymyxin B sulfate 125,000 unit + sodium chloride 0.9% 500 ml INJ 500 mL Route: MISC, Drug form: PDR/INJ, ONCALL, Start date: 05/19/16 13:00:00 ROCK MASON APPRENTICE, Stop date: 05/19/16 14:00:00 ROCK MASON APPRENTICE Notes: TIME CRITICAL MEDICATION(Same As: Vancocin) Start Date: 05/19/16 Stop Date: 05/19/16 Status: Completed Vitamin B12 1,000 microgram, 1 tab, Route: PO, Drug form: TAB, Daily, Dosing Weight 93.364, kg, Start date: 05/20/16 9:00:00 ROCK MASON APPRENTICE, Duration: 30 day, Stop date: 06/18/16 9:00 :00 ROCK MASON APPRENTICE Notes: (Same As: Vitamin B-12) Start Date: 05/20/16 Stop Date: 05/25/16 Status: Discontinued Vitamin B12 1000 mcg oral tablet 1,000 microgram=1 tab, PO, Daily, # 30 tab, 0 Refill(s) Start Date: 05/13/16 Status: Ordered Vitamin B12 1000 mcg/mL injectable solution 1,000 microgram=1 mL, IM, qMonth, # 10 mL, 0 Refill(s) Start Date: 05/19/16 Status: Ordered Vitamin C 500 mg, 1 tab, Route: PO, Drug form: TAB, Daily, Dosing Weight 93.364, kg, Start date: 05/20/16 9:00:00 ROCK MASON APPRENTICE, Duration: 30 day, Stop date: 06/18/16 9:00:00 ROCK MASON APPRENTICE Notes: (Same as: Vitamin C) Start Date: 05/20/16 Stop Date: 05/25/16 Status: Discontinued Vitamin C 500 mg oral tablet 500 mg=1 tab, PO, Daily, # 30 tab, 0 Refill(s) Start Date: 05/13/16 Status: Ordered Vitamin D3 1000 intl units oral tablet 1,000 IntlUnit=1 tab, PO, Daily, # 30 tab, 0 Refill(s) Start Date: 05/13/16 Status: Ordered Zofran 4 mg, 2 mL, Route: IVP, Drug form: INJ, Q6H, Start date: 05/20/16 0:00:00 ROCK MASON APPRENTICE, D uration: 30 day, Stop date: 06/18/16 18:00:00 ROCK MASON APPRENTICE Notes: (Same as: Zofran) MEDICATION WASTE Product Size: 4 mgProduct Was anand: ___ mg Start Date: 05/20/16 Stop Date: 05/25/16 Status: Discontinued Zofran 4 mg oral tablet 4 mg=1 tab, PO, Q6H, PRN Nausea/Vomiting, X 8 day, # 30 tab, 0 Refill(s), [employer] cy: [id number] Start Date: 05/21/16 Stop Date: 05/29/16 Status: Ordered Results BLOOD BANK RESULTS 1 2 3 Most recent to oldest [Reference Range]: AB POS *Unknown* (05/19/16 9:04 AM) ABO/Rh Negative (05/19/16 9:04 AM) Antibody Scrn ELECTROLYTES 1 2 3 Most recent to oldest [Reference Range]: 142 mEq/L (05/13/16 4:39 PM) Sodium Lvl [135-145 mEq/L] 3.8 mEq/L (05/13/16 4:39 PM) Potassium Lvl [3.5-5.1 mEq/L] 104 mEq/L (05/13/16 4:39 PM) Chloride Lvl [95-109 mEq/L] 28 mEq/L (05/13/16 4:39 PM) CO2 [24-32 mEq/L] 13.8 mEq/L (05/13/16 4:39 PM) AGAP [10.0-20.0 mEq/L] CHEM PANEL 1 2 3 Most recent to oldest [Reference Range]: 0.98 mg/dL (05/13/16 4:39 PM) Creatinine Lvl [0.50-1.40 mg/dL] 62 mL/min/1.73m2 1 *NA* (05/13/16 4:39 PM) eGFR 19 mg/dL (05/13/16 4:39 PM) BUN [7-22 mg/dL] 81 mg/dL (05/13/16 4:39 PM) Glucose Lvl [70-99 mg/dL] 8.7 mg/dL (05/13/16 4:39 PM) Calcium Lvl [8.5-10.5 mg/dL] 1Result Comment: The eGFR is calculated using [...] be mul tiplied by the estimated BMI. URINE AND STOOL 1 2 3 Most recent to oldest [Reference Range]: Clear (05/19/16 9:04 AM) UA Turbidity [Clear] Yellow *NA* (05/19/16 9:04 AM) UA Color [Yellow] 6.0 (05/19/16 9:04 AM) UA pH [5.0-8.0] 1.010 (05/19/16 9:04 AM) UA Spec Grav [<=1.030] Negative (05/19/16 9:04 AM) UA Glucose [Negative] Negative (05/19/16 9:04 AM) UA Blood [Negative] Negative *NA* (05/19/16 9:04 AM) UA Ketones [Negative] Negative (05/19/16 9:04 AM) UA Protein [Negative] 0.2 EU/dL (05/19/16 9:04 AM) UA Urobilinogen [0.1-1.0 EU/dL] Negative *NA* (05/19/16 9:04 AM) UA Bili [Negative] Small *ABN* (05/19/16 9:04 AM) UA Leuk Est [Negative] Negative (05/19/16 9:04 AM) UA Nitrite [Negative] 3-5 /HPF (05/19/16 9:04 AM) UA WBC [None Seen /HPF] 0-2 /HPF (05/19/16 9:04 AM) UA RBC [0-2 /HPF] Few /HPF (05/19/16 9:04 AM) UA Bacteria [None Seen /HPF] Few /LPF (05/19/16 9:04 AM) UA Sq Epi [Few /LPF] Rare /LPF (05/19/16 9:04 AM) UA Mucus [None Seen /LPF] Performed (05/19/16 9:04 AM) Micro? HEMATOLOGY 1 2 3 Most recent to oldest [Reference Range]: 8.8 K/CMM (05/21/16 6:06 AM) 13.6 K/CMM *HI* (05/20/16 5:45 AM) 8.6 K/CMM (05/13/16 4:39 PM) WBC [3.7-10.4 K/CMM] 3.77 M/CMM *LOW* (05/21/16 6:06 AM) 4.46 M/CMM (05/20/16 5:45 AM) 5.02 M/CMM (05/13/16 4:39 PM) RBC [4.20-5.40 M/CMM] 11.0 g/dL *LOW* (05/21/16 6:06 AM) 12.6 g/dL (05/20/16 5:45 AM) 14.3 g/dL (05/13/16 4:39 PM) Hgb [12.0-16.0 g/dL] 32.1 % *LOW* (05/21/16 6:06 AM) 38.3 % (05/20/16 5:45 AM) 43.2 % (05/13/16 4:39 PM) Hct [36.0-48.0 %] 85.3 fL (05/21/16 6:06 AM) 85.9 fL (05/20/16 5:45 AM) 86.1 fL (05/13/16 4:39 PM) MCV [80.0-98.0 fL] 29.1 pg (05/21/16 6:06 AM) 28.2 pg (05/20/16 5:45 AM) 28.5 pg (05/13/16 4:39 PM) MCH [27.0-31.0 pg] 34.2 g/dL (05/21/16 6:06 AM) 32.8 g/dL (05/20/16 5:45 AM) 33.1 g/dL (05/13/16 4:39 PM) MCHC [32.0-36.0 g/dL] 13.8 % (05/21/16 6:06 AM) 13.9 % (05/20/16 5:45 AM) 13.8 % (05/13/16 4:39 PM) RDW [11.5-14.5 %] 250 K/CMM (05/21/16 6:06 AM) 269 K/CMM (05/20/16 5:45 AM) 361 K/CMM (05/13/16 4:39 PM) Platelet [133-450 K/CMM] 8.9 fL (05/21/16 6:06 AM) 9.2 fL (05/20/16 5:45 AM) 9.6 fL (05/13/16 4:39 PM) MPV [7.4-10.4 fL] 70.6 % (05/21/16 6:06 AM) 87.2 % *HI* (05/20/16 5:45 AM) 59.3 % (05/13/16 4:39 PM) Segs [45.0-75.0 %] 15.6 % *LOW* (05/21/16 6:06 AM) 6.5 % *LOW* (05/20/16 5:45 AM) 27.7 % (05/13/16 4:39 PM) Lymphocytes [20.0-40.0 %] 10.9 % (05/21/16 6:06 AM) 6.2 % (05/20/16 5:45 AM) 8.1 % (05/13/16 4:39 PM) Monocytes [2.0-12.0 %] 2.5 % (05/21/16 6:06 AM) 4.1 % *HI* (05/13/16 4:39 PM) Eosinophils [0.0-4.0 %] 0.4 % (05/21/16 6:06 AM) 0.1 % (05/20/16 5:45 AM) 0.8 % (05/13/16 4:39 PM) Basophils [0.0-1.0 %] 6.2 K/CMM (05/21/16 6:06 AM) 11.9 K/CMM *HI* (05/20/16 5:45 AM) 5.1 K/CMM (05/13/16 4:39 PM) Segs-Bands # [1.5-8.1 K/CMM] 1.4 K/CMM (05/21/16 6:06 AM) 0.9 K/CMM *LOW* (05/20/16 5:45 AM) 2.4 K/CMM (05/13/16 4:39 PM) Lymphocytes # [1.0-5.5 K/CMM] 1.0 K/CMM *HI* (05/21/16 6:06 AM) 0.8 K/CMM (05/20/16 5:45 AM) 0.7 K/CMM (05/13/16 4:39 PM) Monocytes # [0.0-0.8 K/CMM] 0.2 K/CMM (05/21/16 6:06 AM) 0.4 K/CMM (05/13/16 4:39 PM) Eosinophils # [0.0-0.5 K/CMM] 0.1 K/CMM (05/13/16 4:39 PM) Basophils # [0.0-0.2 K/CMM] 12.0 seconds (05/19/16 9:04 AM) PT [12.0-14.7 seconds] 0.87 (05/19/16 9:04 AM) INR [0.85-1.17] 30.0 seconds (05/19/16 9:04 AM) PTT [22.9-35.8 seconds] Immunizations Given and Recorded Vaccine Date Status Refusal Reason influenza virus vaccine, inactivated 04/15/16 Given pneumococcal 23-valent vaccine 05/22/16 Given Procedures Procedure Date Related Diagnosis Body Site Cardiac catheterisation 04/06/16 Cervical laminectomy 2003 Carpal tunnel1 1998 Bunionectomy 1994 Laparoscopic cholecystectomy 1984 Hysterectomy 1979 Tonsillectomy 1979 1rt wrist Social History Social History Type [...]
--- OUTSIDE RECORDS SUMMARY | 2018-08-27 11:21 | XMS REPORT | Summary of Care ---
Author Author [facility] Address Unknown Phone Unavailable Encounter HQ Meryl_ana luisa(FIN) [id number] Date(s): 08/21/16 - 09/19/16 [facility] [address] [facility] [address] [place] [address]- [phone] Discharge Disposition: Home or Self Care Attending Physician: Ephraim Samano MD Vital Signs No data available for this section Problem List Condition Effective Dates Status Health Status Informant Hayfever(Confirmed) Active Anemia(Confirmed) Resolved Anxiety(Confirmed) Resolved Knee pain(Confirmed) Active Bronchitis(Confirmed Resolved ) Fracture of 09/10/08 Active humerus1, 2 Reflux Active esophagitis(Confirme d) HTN Active (hypertension)(Confi rmed) Arthritis(Confirmed) Active Pneumonia(Confirmed) Resolved Sleep Active apnea(Confirmed) 1Data migrated from [employer] on 11/20/14. 2Data migrated from [employer] on 11/20/14. Allergies, Adverse Reactions, Alerts Substance [...]
[2018-08-27] MEDS ORDERED: ACETAMINOPHEN 325 MG TAB ONE (11:52)
[2018-08-27] MEDS ORDERED: ACETAMINOPHEN 325 MG TAB PO ONE (12:00)
[2018-08-27] MEDS ORDERED: ACETAMINOPHEN 325 MG TAB PO NR (12:15)
[2018-08-27 12:25] LABS: BASOPHILS # (AUTO) 0.1 (0.0-0.1); BASOPHILS % 0.5 % (0.0-1.0); EOSINOPHILS # (AUTO) 0.1 (0.0-0.4); EOSINOPHILS % 0.3 % (0.0-6.0); HEMATOCRIT 47.6 % (34.2-44.1); HEMOGLOBIN 15.6 g/dL (12.0-16.0); LYMPHOCYTES # (AUTO) 1.1 (1.0-3.2); LYMPHOCYTES % 7.7 % (18.0-39.1); MEAN CORPUSCULAR HEMOGLOBIN 27.9 pg (28-32); MEAN CORPUSCULAR HGB CONC 32.8 g/dL (31-35); MEAN CORPUSCULAR VOLUME 85.2 fL (81-99); MONOCYTES # (AUTO) 1.1 (0.2-0.8); MONOCYTES % 7.9 % (4.4-11.3); NEUTROPHILS # (AUTO) 11.9 (2.1-6.9); NEUTROPHILS % 83.1 % (38.7-80.0); PLATELET COUNT 253 x10e3/uL (140-360); RED BLOOD COUNT 5.59 x10e6/uL (3.6-5.1); RED CELL DISTRIBUTION WIDTH 13.9 % (11.7-14.4)
[2018-08-27 12:30] LABS: STREPTOCOCCUS GRP A ANTIGEN NEGATIVE (NEGATIVE)
[2018-08-27 12:37] LABS: INFLUENZAE A&B ANTIGEN (RAPID) NEGATIVE (NEGATIVE)
[2018-08-27 12:48] LABS: CLARITY,URINE HAZY (CLEAR); COLOR,URINE YELLOW (YELLOW); LEUKOCYTE ESTERASE ,URINE 1+ (NEGATIVE); NITRITE,URINE NEGATIVE (NEGATIVE); PROTEIN,URINE DIPSTICK TRACE (NEGATIVE)
[2018-08-27 12:49] LABS: BILIRUBIN,URINE NEGATIVE (NEGATIVE); KETONES,URINE NEGATIVE (NEGATIVE); URINE UROBILINOGEN 0.2 mg/dL (0.2 - 1)
[2018-08-27 12:51] LABS: ALANINE AMINOTRANSFERASE 24 IU/L (0-55); ALBUMIN 3.6 g/dL (3.5-5.0); ALKALINE PHOSPHATASE 87 IU/L (40-150); ANION GAP 14.5 mmol/L (8-16); BLOOD UREA NITROGEN 10 mg/dL (7-26); BUN/CREATININE RATIO 12 (6-25); CALCIUM 9.5 mg/dL (8.4-10.2); CARBON DIOXIDE 23 mmol/L (22-29); CHLORIDE 103 mmol/L (98-107); CREATINE KINASE 107 IU/L (29-168); CREATININE, SERUM 0.83 mg/dL (0.57-1.11); EST GLOMERULAR FILTRATION RATE > 60 ML/MIN (60-); GLUCOSE 123 mg/dL (74-118); POTASSIUM 3.5 mmol/L (3.5-5.1); SODIUM 137 mmol/L (136-145)
--- NOTE | 2018-08-27 13:04 | Diagnostic Imaging Report ---
EXAMINATION: CHEST 2 VIEWS INDICATION: ^R/O PNA ^[id number] ^[id number] COMPARISON: Chest x-ray 09/26/2017 FINDINGS: PA and lateral views TUBES and LINES: None. LUNGS: There is mild diffuse hyperinflation with flattening of the diaphragms. There is no evidence of pneumonia or pulmonary edema. PLEURA: No pleural effusion or pneumothorax. HEART AND MEDIASTINUM: The cardiomediastinal silhouette is unremarkable.. BONES AND SOFT TISSUES: No focal osseous lesions. The bones are diffusely demineralized. Fusion hardware in the lower cervical spine is stable. Soft tissues are unremarkable. UPPER ABDOMEN: No free air under the diaphragm. Cholecystectomy clips are present. IMPRESSION: Pulmonary hyperinflation suggestive of COPD. No acute cardiopulmonary process. Signed by: Dr. Fatou Newman MD on 08/27/2018 1:01 PM
[2018-08-27 13:07] LABS: BACTERIA,URINE FEW /HPF
[2018-08-27 13:09] LABS: RBC,URINE 0-5 /HPF (0-5); WBC,URINE (MAN) 21-50 /HPF (0-5)
[2018-08-27 13:10] LABS: EPITHELIAL CELLS,URINE RARE /LPF; TRANSITIONAL EPI CELLS,URINE MODERATE
[2018-08-27 13:17] LABS: AMYLASE 67 U/L (25-125); LIPASE 15 U/L (8-78)
[2018-08-27] MEDS ORDERED: CEFTRIAXONE SOD 1 GM/NS 50 ML 50 ML IV ONE ×2 (13:30→20:01)
--- NOTE | 2018-08-27 15:21 | Diagnostic Imaging Report ---
CT Abdomen and Pelvis without contrast INDICATION: Back pain, vomiting TECHNIQUE: Thin collimation axial images obtained from the diaphragm to the level of the pubic symphysis without nonionic intravenous contrast. Dose reduction techniques used: Automated exposure control, adjustment of the mAs and/or kVp according to patient size, standardized low-dose protocol, and/or iterative reconstruction technique. RADIATION DOSE: Total DLP: 789.92 mGy*cm Estimated effective dose: (DLP x 0.015 x size factor) mSv CTDIvol has been reviewed. It is below the limits set by the Radiation Protocol Committee (RPC). COMPARISON: None. ABDOMEN FINDINGS: Lung Bases: Patchy foci of groundglass attenuation in the middle and right lower lobes with associated bronchial wall thickening. Small focus of subsegmental atelectasis in the medial segment of the middle lobe. Left lung is clear. Mild prominence of the distal esophagus may be from vomiting. No discrete hiatal hernia. Visualized portion of the mediastinum is normal. Liver: Normal in attenuation without mass. Gallbladder: Absent. No ductal dilatation. Pancreas: Mild fatty atrophy. No mass or ductal dilatation.. Spleen: Normal size without mass. Adrenal Glands: No evidence for mass. Kidneys: Right: No renal calculus. No cortical mass or hydronephrosis Left: No renal calculus. No cortical mass or hydronephrosis Lymph Nodes: No lymphadenopathy. Aorta: Normal in diameter with scattered calcifications. PELVIS FINDINGS: Bowel: Stomach: Normal in caliber with normal wall thickness. Small Bowel: Tiny periampullary duodenal diverticulum. Small bowel is normal in diameter with normal wall thickness.. Large Bowel: Diverticulosis coli predominantly in the sigmoid colon without associated inflammation. No mural thickening or pericolonic inflammation. Appendix: Normal. Bladder: Under distended but otherwise normal. Ureters: No ureteral dilatation or calculus. The uterus is absent. No adnexal mass. No free fluid or fluid collection.. Bones: Mild degenerative changes of the spine. No compression deformities or focal osseous lesions. Soft tissues: Unremarkable. IMPRESSION: 1. Multifocal airspace opacities in the right lung suggestive of pneumonia with associated bronchial inflammation. 2. No evidence of renal calculus or obstructive uropathy. 3. Diverticulosis coli. No evidence for bowel obstruction or inflammation. Normal appendix. Mildly prominent distal esophagus either from vomiting or small hiatal hernia. Signed by: Dr. Fatou Newman MD on 08/27/2018 3:18 PM
[2018-08-27] MEDS ORDERED: AZITHROMYCIN 500MG/NS 250 ML 250 ML IV STA (15:46)
--- NOTE | 2018-08-27 16:40 | NUR ---
PATIENT TO ROOM 5
--- NOTE | 2018-08-27 17:55 | NUR ---
C/O RIGHT SHOULDER BURNING PAIN WHEN ZITHROMAX STARTED. PATIENT EVALUATED PER DR. ROMERO AND KRISTY N.P. MEDICATION RATE REDUCED FROM 250CC TO 125/HR. PATIENT TOLERATING
--- NOTE | 2018-08-27 18:57 | NUR ---
LEFT ARM PIV REMOVED. NOT PATENT. C/O OF BURNING PAIN WHEN SALINE INFUSED.
[2018-08-27] MEDS: ALBUTEROL SULF 0.083% NEB SOLN 3 ML NEB NEB SCH ×2 (19:10→23:35)
--- NOTE | 2018-08-27 19:17 | NUR ---
BEDSIDE REPORT TO JACINTA Mckeon
[2018-08-27] MEDS ORDERED: LOSARTAN POTAS100 MG PO (19:52)
[2018-08-27] MEDS ORDERED: METOPROLOL SUCC50 MG PO (19:52)
[2018-08-27 20:00] VITALS: BP 93/53
--- NOTE | 2018-08-27 21:26 | NUR ---
PT COMPLAIN OF HEADACHE. PER DR TAYLOR TYLENOL 650MG Q6H PRN. WILL CONTINUE TO MONITOR.
[2018-08-27] MEDS: ACETAMINOPHEN 325 MG TAB PO PRN (21:37)
[2018-08-27 22:28] VITALS: BP 93/53
[2018-08-27] MEDS ORDERED: INFLUENZA VIRUS VAC SPLIT INJ 0.5 ML SYR IM SCH (22:30)
[2018-08-27] MEDS ORDERED: PNEUMOCOCCAL VACCINE POLYVALENT 23 MCG/0.5 ML VIAL IM SCH (22:30)
[2018-08-27 22:34] VITALS: BP 93/53
--- NOTE | 2018-08-27 22:47 | NUR ---
PT ARRIVED ON THE UNIT VIA STRETCHER AT 2007. PT IS A&OX3. RESPIRATION IS EVEN AND UNLABORED, NO DISTRESS NOTED. BED IN THE LOWEST POSITION, LOCKED, AND CALL LIGHT WITHIN REACH. PT REFUSE BED ALARM. EDUCATED PT ON HAVING THE BED ALARM ON FOR SAFETY, BUT PT STILL REFUSE. ADMISSION AND HEAD TO TOE ASSESSMENT COMPLETED. WILL CONTINUE TO MONITOR.
[2018-08-28] VITALS (8 sets, daily range): BP systolic 98–142; BP diastolic 52–73
[2018-08-28] MEDS: ALBUTEROL SULF 0.083% NEB SOLN 3 ML NEB NEB SCH ×5 (03:00→22:25)
[2018-08-28] MEDS: ACETAMINOPHEN 325 MG TAB PO PRN ×2 (03:20→17:20)
[2018-08-28 03:43] LABS: CREATINE KINASE 79 IU/L (29-168)
[2018-08-28] MEDS ORDERED: SODIUM CHLORIDE 0.9% 250ML 250 ML ONE (06:08)
[2018-08-28] MEDS: CEFTRIAXONE SOD 1 GM/NS 50 ML 50 ML IV SCH (06:31)
--- NOTE | 2018-08-28 07:30 | NUR ---
PATIENT IN BED RESTING WITH NO RESPIRATORY DISTRESS. DENIED PAIN AT THIS TIME. IV FLUID INFUSING ORDERED. BED IN LOWER POSITION, CALL LIGHT AT REACH.
[2018-08-28] MEDS ORDERED: GUAIFENESIN/DEXTROMETHORPHAN LIQD 5 ML UDC NG PRN (07:45)
[2018-08-28] MEDS: LOSARTAN POTASSIUM 100 MG TAB PO SCH (09:22)
[2018-08-28] MEDS: METOPROLOL SUCCINATE 50 MG TAB XL PO SCH (09:23)
--- NOTE | 2018-08-28 10:31 | NUR ---
PATIENT NOTED WITH COUGHING. MD NOTIFIED, NEW ORDER RECEIVED.
[2018-08-28 11:24] LABS: CREATINE KINASE 85 IU/L (29-168)
--- NOTE | 2018-08-28 16:04 | NUR ---
PATIENT SITTING AT BED SIDE TALKING TO FAMILY MEMBERS VISITING. CALL LIGHT AT REACH.
--- NOTE | 2018-08-28 16:15 | NUR ---
Visit made by the Spiritual Care Department Pastoral Visitor, Dax Lovett. PV provided pastoral presence, hospitality, and supportive listening. Pastoral Visitor informed pt/family of the scope of [employer] and availability. [employer] Spiritual Care Department O: [phone] Pager: [phone] ([phone] number calling from)
[2018-08-28] MEDS: AZITHROMYCIN 500MG/SOD CHL 0.9% 250ML BAG IV SCH (18:03)
--- NOTE | 2018-08-28 19:31 | NUR ---
PT IS RESTING IN BED WITH FAMILY AT BEDSIDE. NO RESPIRATORY DISTRESS NOTED. BED IN THE LOWEST POSITION, LOCKED, AND CALL LIGHT WITHIN REACH. WILL CONTINUE TO MONITOR.
[2018-08-29] VITALS (7 sets, daily range): BP systolic 102–128; BP diastolic 48–67
[2018-08-29] MEDS: ALBUTEROL SULF 0.083% NEB SOLN 3 ML NEB NEB SCH ×5 (04:00→23:25)
[2018-08-29] MEDS: CEFTRIAXONE SOD 1 GM/NS 50 ML 50 ML IV SCH (05:18)
[2018-08-29 07:00] LABS: BASOPHILS # (AUTO) 0.1 (0.0-0.1); EOSINOPHILS # (AUTO) 0.4 (0.0-0.4); EOSINOPHILS % 7.8 % (0.0-6.0); HEMATOCRIT 40.2 % (34.2-44.1); HEMOGLOBIN 13.1 g/dL (12.0-16.0); LYMPHOCYTES # (AUTO) 1.7 (1.0-3.2); MEAN CORPUSCULAR HEMOGLOBIN 28.4 pg (28-32); MEAN CORPUSCULAR HGB CONC 32.6 g/dL (31-35); MONOCYTES # (AUTO) 0.5 (0.2-0.8); MONOCYTES % 8.8 % (4.4-11.3); NEUTROPHILS # (AUTO) 2.6 (2.1-6.9); PLATELET COUNT 268 x10e3/uL (140-360); RED BLOOD COUNT 4.62 x10e6/uL (3.6-5.1)
[2018-08-29 07:23] LABS: ALANINE AMINOTRANSFERASE 15 IU/L (0-55); ALBUMIN 2.8 g/dL (3.5-5.0); ALKALINE PHOSPHATASE 58 IU/L (40-150); ANION GAP 10.3 mmol/L (8-16); BLOOD UREA NITROGEN 16 mg/dL (7-26); BUN/CREATININE RATIO 22 (6-25); CALCIUM 8.9 mg/dL (8.4-10.2); CARBON DIOXIDE 27 mmol/L (22-29); CHLORIDE 107 mmol/L (98-107); CREATININE, SERUM 0.73 mg/dL (0.57-1.11); EST GLOMERULAR FILTRATION RATE > 60 ML/MIN (60-); GLUCOSE 106 mg/dL (74-118); POTASSIUM 3.3 mmol/L (3.5-5.1)
--- NOTE | 2018-08-29 07:30 | NUR ---
PT IN BED SLEEPING ,NO S/S DISCOMFORT
[2018-08-29 07:35] LABS: SODIUM 141 mmol/L (136-145)
[2018-08-29] MEDS: LOSARTAN POTASSIUM 100 MG TAB PO SCH (08:29)
[2018-08-29] MEDS: METOPROLOL SUCCINATE 50 MG TAB XL PO SCH (08:30)
--- NOTE | 2018-08-29 08:30 | NUR ---
PT UP IN BED AWAKE,DENIES PAIN,NO DISTRESS NOTED
[2018-08-29] MEDS: AZITHROMYCIN 500MG/SOD CHL 0.9% 250ML BAG IV SCH (17:59)
--- NOTE | 2018-08-29 17:59 | NUR ---
pt up in bed deies pain no distress noted
--- NOTE | 2018-08-29 19:15 | NUR ---
patient received awake, alert, lying quietly in bed. no c/o pain noted. iv to right forearm red and swollen at site. iv to be be replaced. pm assessment complete. patient instructed to call for assistance when needed.
--- NOTE | 2018-08-29 19:20 | NUR ---
new iv #20 gauge placed to left forearm x 1 stick by Cari Reece LVN. Zithromax 500 mg iv continues to infuse.
--- NOTE | 2018-08-29 19:45 | NUR ---
redness and swelling noted to iv site to left forearm. patient states, " Please stop it. It's burning and itching really bad. " reddened rash noted to iv site. iv zithromax stopped at this time. iv flushes without difficulty. will continue to monitor site.
[2018-08-30] VITALS (7 sets, daily range): BP systolic 111–150; BP diastolic 55–101
--- NOTE | 2018-08-30 | NUR ---
iv site to left forearm is less red with no swelling. iv flushes without difficulty. no c/o pain noted at this time.
[2018-08-30] MEDS: ALBUTEROL SULF 0.083% NEB SOLN 3 ML NEB NEB SCH ×6 (03:17→23:00)
--- NOTE | 2018-08-30 04:30 | NUR ---
Dr. Mohan here to see patient. Dr. Mohan made aware of patients reaction to zithromax. Dr. Roberts to d/c this medication this am.
[2018-08-30] MEDS: CEFTRIAXONE SOD 1 GM/NS 50 ML 50 ML IV SCH (05:36)
[2018-08-30] MEDS ORDERED: POTASSIUM CHLORIDE 20 MEQ TAB CR PO ONE (08:30)
[2018-08-30] MEDS: PANTOPRAZOLE SOD 40 MG TABEC PO SCH ×2 (08:55→17:00)
[2018-08-30] MEDS: LOSARTAN POTASSIUM 100 MG TAB PO SCH (08:55)
[2018-08-30] MEDS: METOPROLOL SUCCINATE 50 MG TAB XL PO SCH (08:55)
--- NOTE | 2018-08-30 18:28 | NUR ---
PT UP IN BED NO DISTRESS NTOED,DENIES PAON,NO SOB NOTED
--- NOTE | 2018-08-30 19:15 | NUR ---
patient received awake, alert, lying quietly in bed. no c/o pain noted. pm assessment complete. patient instructed to call for assistance when needed.
[2018-08-31] VITALS: BP 125/95
[2018-08-31] MEDS: ALBUTEROL SULF 0.083% NEB SOLN 3 ML NEB NEB SCH ×2 (03:00→07:00)
[2018-08-31 04:00] VITALS: BP 125/59
[2018-08-31] MEDS: CEFTRIAXONE SOD 1 GM/NS 50 ML 50 ML IV SCH (05:10)
--- NOTE | 2018-08-31 06:00 | NUR ---
here to see patient. patient to discharge this am. iv site to left forearm red and swollen. iv d/c'd at this time. attempted to place another saline lock but unable to at this time.
--- NOTE | 2018-08-31 07:04 | NUR ---
RECEIVED PATIENT RESTING IN BED. NO ACUTE DISTRESS NOTED. DENIES PAIN OR DISCOMFORT. NO IV ACCESS, WILL GET ONE FOR HER. CALL LIGHT WITHIN REACH. BED IN THE LOWEST POSITION.
[2018-08-31 07:10] VITALS: BP 135/57
--- NOTE | 2018-08-31 07:30 | NUR ---
IV ACCESS TO LEFT WRIST 22G OBTAINED.
[2018-08-31 07:39] VITALS: BP 135/57
[2018-08-31] MEDS: LOSARTAN POTASSIUM 100 MG TAB PO SCH (08:54)
[2018-08-31] MEDS: METOPROLOL SUCCINATE 50 MG TAB XL PO SCH (08:54)
[2018-08-31] MEDS: PANTOPRAZOLE SOD 40 MG TABEC PO SCH (08:54)
[2018-08-31] MEDS ORDERED: PNEUMOCOCCAL VACCINE POLYVALENT 23 MCG/0.5 ML VIAL IM ONE (09:00)
--- NOTE | 2018-08-31 10:41 | NUR ---
RECEIVED DC ORDER FROM MD. PATIENT IS IN STABLE CONDITION. IV LINE TO LEFT WRIST DCD WITH TIP INTACT, PRESSURE APPLIED TO SITE, NO BLEEDING NOTED. PATIENT ACCOMPANIED TO PRIVATE AUTO VIA WHEELCHAIR BY STAFF. ALL PERSONAL ITEMS ON HAND. DISCHARGE FOLDER WHICH INCLUDES DC PAPERWORK AND PRESCRIPTIONS ON HAND.
--- NOTE | 2018-08-31 19:22 | Discharge Summary ---
DISCHARGE DIAGNOSIS: Pneumonia, community acquired. HISTORY OF PRESENT ILLNESS: The patient is a lady, who presented with cough, shortness of breath, congestion, and fever where she was noticed to have pneumonia. She was brought in, placed on IV antibiotics, O2 and nebs where she made daily improvements. In the last 2 days prior to discharge, her lungs were clear. She was able to ambulate well and eat well. At the time of discharge, she was happy to go home. She was discharged home with p.o. Levaquin 500 mg a day for 10 days as well as continuation of her home medications and she is to follow up in 1-2 weeks with the primary care physician. Please see hospital chart for full details. MD SADAF Felix/JEROME /[id number]
== END 2018-08-31 10:46 | disposition home or self-care (01) | DRG 194 ==
LOC: ER 11:16 → ERHOLD 18:31 → MED/SURG3 20:21 → OBSVTOIN 08-29 14:29
PROVIDERS: ADMIT Internal Medicine; ATTEND Internal Medicine
DX: J18.9 Pneumonia, unspecified organism (principal); N39.0 Urinary tract infection, site not specified; I10 Essential (primary) hypertension; K21.9 Gastro-esophageal reflux disease without esophagitis; E87.6 Hypokalemia
CPT/HCPCS: 36415; 71046; 74176; 80053; 81001; 82150; 82550; 82553; 83518; 83690; 83735; 83880; 84484; 85025; 87070; 87400; 90732; 93005; 94640; 99284; G0378; J0456; J0696; J7050

== ENCOUNTER 2018-12-20 11:30 | Emergency (ER) | payer OTHER ==
[~2018-12-20] VITALS: Ht 152.4 cm; Wt 85.7 kg
[~2018-12-20 11:30] MED LIST changes: +LOSARTAN POTAS100 MG PO; +METOPROLOL SUCC50 MG PO
--- OUTSIDE RECORDS SUMMARY | 2018-12-20 11:34 | XMS REPORT | Continuity of Care Document ---
Author Author [employer] Organization [employer] Address Unknown Phone Unavailable Care Team Providers Care Software Configuration Analyst Name Role Phone Chatous Information [employer] Unavailable Unavailable Problems Problem Status Onset Date Classification Date Reported Comments Source ROUTINE MAMMOGRAM Active 08/10/2018 [facility] Atypical chest pain 12/15/2017 12/18/2017 [facility] DIZZINESS, HEADACHES, PRESSURE ON CHEST Active 12/15/2017 [facility] G47.33 Active 03/19/2017 [facility] G47.30 Active 03/11/2017 [facility] Z12.31 ROUTINE Active 01/27/2017 [facility] S/P LFT KNEE Active 09/18/2016 [facility] MMT Active 03/19/2016 [facility] SCREENING Active 02/19/2016 [facility] M25.569 PAIN IN UNSPECIFIED KNE Active 02/19/2016 [facility] 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 Data migrated from [employer] on 11/20/14. Matteo Pinzon [facility], [facility] Hayfever Active Problem 08/18/2018 Matteo Pinzon [facility], [facility] Anemia Resolved Problem 08/18/2018 Matteo Pinzon [facility], [facility] Anxiety Resolved Problem 08/18/2018 Matte[facility] Pinzon [facility], [facility] Knee pain Active Problem 08/18/2018 Matteo Pinzon [facility], [facility] Bronchitis Resolved Problem 08/18/2018 Matteo Pinzon [facility], [facility] Reflux esophagitis Active Problem 08/18/2018 Matteo Pinzon [facility], [facility] HTN (Confirmed) Active Problem 08/18/2018 Matteo Pinzon [facility], [facility] Arthritis Active Problem 08/18/2018 Matteo Pinzon [facility] Pneumonia Resolved Problem 08/18/2018 [facility] Sleep apnea Active Problem 08/18/2018 [facility] Final: Encounter for screening mammogram for malignant neoplasm of breast 03/04/2017 [facility] Final: Other tear of medial meniscus, current injury, unspecified knee, initial encounter 05/28/2016 [facility] Encounter for screening mammogram for malignant neoplasm of breast 08/18/2018 [facility] Contusion of head Active Problem 09/27/2017 [facility] Contusion of right leg Active Problem 09/27/2017 [facility] Syncope and collapse Active Problem 09/27/2017 [facility] SLEEP APNEA, UNSPECIFIED Active [facility] COUGH Active [facility] ENCNTR SCREEN MAMMOGRAM FOR MALIGNANT NE Active [facility] OTH TEAR OF MEDIAL MENISCUS, CURRENT INJ Active [facility] S/P LEFT KNEE SX 05/19/16 Active [facility] OBSTRUCTIVE SLEEP APNEA (ADULT) (PEDIATR Active [facility] Medications Medication Details Route Status Patient Instructions Ordering Provider Order Date Source Benadryl 25 mg, 0.5 mL, Route: IVP, Drug form: INJ, ONCE, Dosing Weight 89.545, kg, Priority: STAT, Start date: 12/15/17 19:58:00 CDT, Stop date: 12/15/17 19:58:00 CDTNotes: (Same as: Benadryl) Inactive 12/16/2017 [facility] Reglan 10 mg, Route: IVP, Drug form: INJ, ONCE, Dosing Weight 89.545, kg, Priority: STAT, Start date: 12/15/17 19:58:00 CDT, Stop date: 12/15/17 19:58:00 CDT Inactive 12/16/2017 [facility] Reglan 10 mg, 2 mL, Route: IVP, Drug form: INJ, ONCE, Dosing Weight 89.545, kg, Priority: STAT, Start date: 12/15/17 19:57:00 CDT, Stop date: 12/15/17 19:57:00 CDTNotes: (Same as: Reglan) Inactive 12/16/2017 [facility] Amlodipine 5 mg, 1 tab, Route: PO, Drug form: TAB, ONCE, Dosing Weight 89.545, kg, Start date: 12/15/17 19:05:00 CDT, Stop date: 12/15/17 19:05:00 CDTNotes: (Same as: Norvasc) Inactive 12/16/2017 [facility] Nitroglycerin 0.4 mg, 1 tab, Route: SL, Drug form: TAB, Q5Min, Dosing Weight 89.545, kg, PRN Chest Pain, Priority: STAT, Start date: 12/15/17 19:03:00 CDT, Duration: 3 doses or times, Stop date: Limited # of times Notes: (Same as:Nitroquick, Nitrostat) "Do Not Crush" Sublingual tablet Inactive 12/16/2017 [facility] Famotidine 40 MG Oral Tablet [Pepcid] 40 mg=1 tab, PO, BID, # 60 tab, 3 Refill(s), other Active 05/25/2016 [facility] Acetaminophen 325 MG / Hydrocodone Bitartrate 10 MG Oral Tablet [Peabody 10/325] 1-2 tab, PO, PRN, PRN Pain, 1-2 tabs every every 6 hours as needed for pain, X 14 day, # 60 tab, 0 Refill(s) Active 05/25/2016 [facility] Sulfamethoxazole 800 MG / Trimethoprim 160 MG Oral Tablet [Bactrim] 1 tab, PO, BID, X 7 day, # 14 tab, 0 Refill(s), Pharmacy: [facility] [id number] Active 05/25/2016 [facility] Acetaminophen 650 mg, 2 tab, Route: PO, Drug form: TAB, ONCE, Dosing Weight 93.364, kg, Start date: 05/25/16 13:04:00 WOMEN'S STUDIES LECTURER, Stop date: 05/25/16 13:04:00 WOMEN'S STUDIES LECTURER, ..Notes: Do not exceed 4 gm/day. (Same as: Tylenol) Inactive 05/25/2016 [facility] sodium chloride 0.45% 1000 ml INJ 1,000 mL 1,000 mL, Rate: 75 ml/hr, Infuse over: 13.3 hr, Route: IV, Dosing Weight 93.364 kg, Total Volume: 1,000, Start date: 05/23/16 3:33:00 WOMEN'S STUDIES LECTURER, Duration: 30 day, Stop date: 06/22/16 3:32:00 WOMEN'S STUDIES LECTURER Inactive 05/23/2016 [facility] GI cocktail 30 ml, Route: PO, Drug Form: SUSP, Dosing Weight 93.364, kg, TID, NOW, Start date: 05/21/16 9:32:00 WOMEN'S STUDIES LECTURER, Duration: 30 day, Stop date: 06/20/16 9:00:00 CSTNotes: G.I. Cocktail=antacid with simethicone 22.5 mL - lidocaine viscous 7.5 mL No Longer Active 05/21/2016 [facility] Famotidine 40 MG Oral Tablet [Pepcid] 40 mg, 2 tab, Route: PO, Drug form: TAB, Q12H, Dosing Weight 93.364, kg, Priority: NOW, Start date: 05/21/16 9:32:00 WOMEN'S STUDIES LECTURER, Duration: 30 day, Stop date: 06/20/16 9:00:00 CSTNotes: (Same as: Pepcid) No Longer Active 05/21/2016 [facility] tramadol hydrochloride 50 MG Oral Tablet 100 mg=2 tab, PO, Q12H, # 30 tab, 0 Refill(s) No Longer Active 05/21/2016 [facility] Ondansetron 4 MG Oral Tablet [Zofran] 4 mg=1 tab, PO, Q6H, PRN Nausea/Vomiting, X 8 day, # 30 tab, 0 Refill(s), Pharmacy: [facility] [id number] Active 05/21/2016 [facility] rivaroxaban 10 mg oral tablet 10 mg=1 tab, PO, Q24H, # 20 tab, 0 Refill(s), Pharmacy: [facility] [id number] Active 05/21/2016 [facility] methocarbamol 500 mg oral tablet 1,000 mg=2 tab, PO, Q8H, PRN Muscle Spasms, # 30 tab, 0 Refill(s), Pharmacy: [facility] [id number] Active 05/21/2016 [facility] cyanocobalamin 1000 mcg sublingual tablet 1,000 microgram=1 tab, PO, Daily, 0 Refill(s) Active 05/21/2016 [facility] Hydrochlorothiazide 25 MG Oral Tablet 25 mg, 1 tab, Route: PO, Drug form: TAB, Daily, Dosing Weight 93.364, kg, Start date: 05/20/16 9:00:00 WOMEN'S STUDIES LECTURER, Duration: 30 day, Stop date: 06/18/16 9:00:00 CSTNotes: (Same as: Hydrodiuril) With food. No Longer Active 05/20/2016 [facility] Vitamin B12 1,000 microgram, 1 tab, Route: PO, Drug form: TAB, Daily, Dosing Weight 93.364, kg, Start date: 05/20/16 9:00:00 WOMEN'S STUDIES LECTURER, Duration: 30 day, Stop date: 06/18/16 9:00:00 CSTNotes: (Same As: Vitamin B-12) No Longer Active 05/20/2016 [facility] Vitamin C 500 mg, 1 tab, Route: PO, Drug form: TAB, Daily, Dosing Weight 93.364, kg, Start date: 05/20/16 9:00:00 WOMEN'S STUDIES LECTURER, Duration: 30 day, Stop date: 06/18/16 9:00:00 CSTNotes: (Same as: Vitamin C) No Longer Active 05/20/2016 [facility] Amlodipine 2.5 mg, 1 tab, Route: PO, Drug form: TAB, Daily, Dosing Weight 93.364, kg, Start date: 05/20/16 9:00:00 WOMEN'S STUDIES LECTURER, Duration: 30 day, Stop date: 06/18/16 9:00:00 CSTNotes: (Same as: Norvasc) No Longer Active 05/20/2016 [facility] Zofran 4 mg, 2 mL, Route: IVP, Drug form: INJ, Q6H, Start date: 05/20/16 0:00:00 WOMEN'S STUDIES LECTURER, Duration: 30 day, Stop date: 06/18/16 18:00:00 CSTNotes: (Same as: Zofran) MEDICATION WASTE Product Size: 4 mg Product Wasted: ___ mg No Longer Active 05/20/2016 [facility] rivaroxaban 10 mg, 1 tab, Route: PO, Drug form: TAB, Q24H, Dosing Weight 93.364, kg, Start date: 05/19/16 21:39:00 WOMEN'S STUDIES LECTURER, Duration: 30 day, Stop date: 06/17/16 9:00:00 CSTNotes: (Same as: Xarelto) Do Not Crush No Longer Active 05/20/2016 [facility] Mupirocin 1 appl, Route: NASAL, Q12H, Drug form: OINT, Start date: 05/19/16 21:00:00 WOMEN'S STUDIES LECTURER, Duration: 30 day, Stop date: 06/18/16 9:00:00 WOMEN'S STUDIES LECTURER No Longer Active 05/20/2016 [facility] ceFAZolin (SCIP) + sodium chloride 0.9% INJ 100 mL 1 gm, Route: IVPB, Q6H, Dosing Weight 93.364, kg, Start date: 05/19/16 21:00:00 WOMEN'S STUDIES LECTURER, Duration: 3 doses or times, Stop date: 05/20/16 9:00:00 CSTNotes: (Same As: Cornel Toussaintl) MEDICATION WASTE Product Size: 1000 mg Product Wasted: ___ mg No Longer Active 05/20/2016 [facility] ceFAZolin (SCIP) + sodium chloride 0.9% INJ 100 mL 1 gm, Route: IVPB, Q6H, Dosing Weight 93.364, kg, Start date: 05/19/16 18:00:00 WOMEN'S STUDIES LECTURER, Duration: 3 doses or times, Stop date: 05/20/16 6:00:00 CSTNotes: (Same As: Sam Toussaint) MEDICATION WASTE Product Size: 1000 mg Product Wasted: ___ mg Inactive 05/20/2016 [facility] Docusate 100 mg, 1 cap, Route: PO, Drug form: CAP, BID, Dosing Weight 93.364, kg, Start date: 05/19/16 17:00:00 WOMEN'S STUDIES LECTURER, Duration: 30 day, Stop date: 06/18/16 9:00:00 CSTNotes: (Same as: Colace) (Do Not Crush) No Longer Active 05/19/2016 [facility] Tramadol 100 mg, 2 tab, Route: PO, Drug form: TAB, Q6Hnow, Dosing Weight 93.364, kg, Start date: 05/19/16 16:00:00 WOMEN'S STUDIES LECTURER, Duration: 30 day, Stop date: 06/18/16 10:00:00 CSTNotes: Not to exceed 400mg/day. (Same As: Ultram) No Longer Active 05/19/2016 [facility] celecoxib 200 mg, 1 cap, Route: PO, Drug form: CAP, [id number], Dosing Weight 93.364, kg, Start date: 05/19/16 16:00:00 WOMEN'S STUDIES LECTURER, Duration: 30 day, Stop date: 06/18/16 4:00:00 CSTNotes: NSAID. Please check indication. Not for seizure. (Same As: CeleBREX) No Longer Active 05/19/2016 [facility] gabapentin 300 mg, 1 cap, Route: PO, Drug form: CAP, Q8Hnow, Dosing Weight 93.364, kg, Start date: 05/19/16 16:00:00 WOMEN'S STUDIES LECTURER, Duration: 30 day, Stop date: 06/18/16 8:00:00 CSTNotes: (Same as: Neurontin) No Longer Active 05/19/2016 [facility] fentaNYL (ANES) Route: IV, Drug form: INJ, ONCE, Stop date: 05/19/16 15:55:00 WOMEN'S STUDIES LECTURER Inactive 05/19/2016 [facility] ketOROLAC (ANES) IV, ONCE Inactive 05/19/2016 [facility] ondansetron (ANES) Route: IV, Drug form: INJ, ONCE, Stop date: 05/19/16 15:33:00 WOMEN'S STUDIES LECTURER Inactive 05/19/2016 [facility] Al hydroxide/Mg hydroxide/simethicone 200 mg-200 mg-20 mg/5 mL oral suspension 30 mL, Route: PO, Drug Form: SUSP, Dosing Weight 93.364, kg, Q4H, PRN Indigestion, Start date: 05/19/16 15:32:00 WOMEN'S STUDIES LECTURER, Duration: 30 day, Stop date: 06/18/16 15:31:00 CSTNotes: (aluminum hydroxide-magnesium hyd- simethicone [phone]/5ml 30 ml ud ANGELIKA) No Longer Active 05/19/2016 [facility] Nalbuphine 2 mg, 0.2 mL, Route: IVP, Drug form: INJ, Q2H, Dosing Weight 93.364, kg, PRN Itching, Start date: 05/19/16 15:32:00 WOMEN'S STUDIES LECTURER, Duration: 5 doses or times, Stop date: Limited # of timesNotes: (Same As: Nuba in) No Longer Active 05/19/2016 [facility] Melatonin 3 mg, 1 tab, Route: PO, Drug form: TAB, Bedtime, Dosing Weight 93.364, kg, PRN Insomnia, Start date: 05/19/16 15:32:00 WOMEN'S STUDIES LECTURER, Duration: 30 day, Stop date: 06/18/16 15:31:00 CSTNotes: (Same as: Melatonin) No Longer Active 05/19/2016 [facility] Morphine 2 mg, 1 mL, Route: IVP, Drug form: INJ, Q4H, Dosing Weight 93.364, kg, PRN Pain Score 7-10, Start date: 05/19/16 15:32:00 WOMEN'S STUDIES LECTURER, Duration: 30 day, Stop date: 06/18/16 15:31:00 CSTNotes: (Same as:MORPhine Sulfate) No Longer Active 05/19/2016 [facility] Ondansetron 4 mg, 2 mL, Route: IVP, Drug form: INJ, Q8H, Dosing Weight 93.364, kg, PRN Nausea & Vomiting, Start date: 05/19/16 15:32:00 WOMEN'S STUDIES LECTURER, Duration: 30 day, Stop date: 06/18/16 15:31:00 CSTNotes: (Same as: Zofran) MEDICATION WASTE Product Size: 4 mg Product Wasted: ___ mg No Longer Active 05/19/2016 [facility] Methocarbamol 1,000 mg, 2 tab, Route: PO, Drug form: TAB, Q8H, Dosing Weight 93.364, kg, PRN Muscle Spasms, Start date: 05/19/16 15:32:00 WOMEN'S STUDIES LECTURER, Duration: 30 day, Stop date: 06/18/16 15:31:00 CSTNotes: (Same as:Robaxin) No Longer Active 05/19/2016 [facility] Bisacodyl 10 mg, 1 supp, Route: KY, Drug form: SUPP, Daily, Dosing Weight 93.364, kg, PRN Constipation, Start date: 05/19/16 15:32:00 WOMEN'S STUDIES LECTURER, Duration: 30 day, Stop date: 06/18/16 15:31:00 CSTNotes: (Same As: Dulcolax, Bisco-Lax) No Longer Active 05/19/2016 [facility] Oxycodone Hydrochloride 5 MG Oral Tablet 10 mg, 2 tab, Route: PO, Drug form: TAB, Q4H, Dosing Weight 93.364, kg, PRN Pain Score 7-10, Start date: 05/19/16 15:32:00 WOMEN'S STUDIES LECTURER, Duration: 30 day, Stop date: 06/18/16 15:31:00 CSTNotes: (Same as: Roxicodone) No Longer Active 05/19/2016 [facility] sodium chloride 0.45% 1000 ml INJ 1,000 mL 1,000 mL, Rate: 75 ml/hr, Infuse over: 13.3 hr, Route: IV, Dosing Weight 93.364 kg, Total Volume: 1,000, Start date: 05/19/16 15:32:00 WOMEN'S STUDIES LECTURER, Duration: 30 day, Stop date: 06/18/16 15:31:00 WOMEN'S STUDIES LECTURER No Longer Active 05/19/2016 [facility] acetaminophen (ANES) Route: IV, Drug form: INJ, ONCE, Stop date: 05/19/16 14:52:00 WOMEN'S STUDIES LECTURER Inactive 05/19/2016 [facility] metoclopramide (ANES) Route: IV, Drug form: INJ, ONCE, Stop date: 05/19/16 14:21:00 WOMEN'S STUDIES LECTURER Inactive 05/19/2016 [facility] dexamethasone (ANES) Route: IV, Drug form: INJ, ONCE, Stop date: 05/19/16 14:21:00 WOMEN'S STUDIES LECTURER Inactive 05/19/2016 [facility] tranexamic acid (ANES) Route: IV, Drug form: INJ, ONCE, Stop date: 05/19/16 14:21:00 WOMEN'S STUDIES LECTURER Inactive 05/19/2016 [facility] famotidine (ANES) Route: IV, Drug form: INJ, ONCE, Stop date: 05/19/16 14:21:00 WOMEN'S STUDIES LECTURER Inactive 05/19/2016 [facility] ondansetron (ANES) Route: IV, Drug form: INJ, ONCE, Stop date: 05/19/16 14:21:00 WOMEN'S STUDIES LECTURER Inactive 05/19/2016 [facility] morphine Sulfate (ANES) Route: IV, Drug form: INJ, ONCE, Stop date: 05/19/16 14:16:00 WOMEN'S STUDIES LECTURER Inactive 05/19/2016 [facility] bupivacaine (ANES) Route: INTRATHECAL, Drug Form: INJ, ONCE, Stop date: 05/19/16 14:16:00 WOMEN'S STUDIES LECTURER Inactive 05/19/2016 [facility] rocuronium (ANES) Route: IV, Drug form: INJ, ONCE, Stop date: 05/19/16 13:56:00 WOMEN'S STUDIES LECTURER Inactive 05/19/2016 [facility] ceFAZolin (ANES) Route: IV, Drug form: INJ, ONCE, Stop date: 05/19/16 13:54:00 WOMEN'S STUDIES LECTURER Inactive 05/19/2016 [facility] fentaNYL (ANES) Route: IV, Drug form: INJ, ONCE, Stop date: 05/19/16 13:42:00 WOMEN'S STUDIES LECTURER Inactive 05/19/2016 [facility] propofol (ANES) Route: IV, Drug form: INJ, ONCE, Stop date: 05/19/16 13:42:00 WOMEN'S STUDIES LECTURER Inactive 05/19/2016 [facility] lidocaine (ANES) Route: IV, Drug form: INJ, ONCE, Stop date: 05/19/16 13:42:00 WOMEN'S STUDIES LECTURER Inactive 05/19/2016 [facility] midazolam (ANES) Route: IV, Drug form: SOLN, ONCE, Stop date: 05/19/16 13:31:00 WOMEN'S STUDIES LECTURER Inactive 05/19/2016 [facility] vancomycin (ANES) (ANES) Route: IV, Drug form: INJ, Start date: 05/19/16 13:21:00 WOMEN'S STUDIES LECTURER, Stop date: 05/19/16 14:21:00 WOMEN'S STUDIES LECTURER Inactive 05/19/2016 [facility] vancomycin 500 mg + polymyxin B sulfate 125,000 unit + sodium chloride 0.9% 500 ml INJ 500 mL Route: MISC, Drug form: PDR/INJ, ONCALL, Start date: 05/19/16 13:00:00 WOMEN'S STUDIES LECTURER, Stop date: 05/19/16 14:00:00 CSTNotes: TIME CRITICAL MEDICATION (Same As: Vancocin) Inactive 05/19/2016 [facility] LR 1000 mL INJ (ANES) Route: IV, Total Volume: 1,000, Start date: 05/19/16 12:50:00 WOMEN'S STUDIES LECTURER, Stop date: 05/19/16 13:50:00 WOMEN'S STUDIES LECTURER Inactive 05/19/2016 [facility] Calcium Chloride 0.0014 MEQ/ML / Potassium Chloride 0.004 MEQ/ML / Sodium Chloride 0.103 MEQ/ML / Sodium Lactate 0.028 MEQ/ML Injectable Solution 1,000 mL, Rate: 25 ml/hr, Infuse over: 40 hr, Route: IV, Dosing Weight 93.364 kg, Total Volume: 1,000, Start date: 05/19/16 9:41:00 WOMEN'S STUDIES LECTURER, Duration: 30 day, Stop date: 06/18/16 9:40:00 WOMEN'S STUDIES LECTURER Inactive 05/19/2016 [facility] Vitamin B12 1000 mcg/mL injectable solution 1,000 microgram=1 mL, IM, qMonth, # 10 mL, 0 Refill(s) Active 05/19/2016 [facility] 8 HR Acetaminophen 650 MG Extended Release Tablet [Tylenol] 1,300 mg=2 tab, PO, Q8H, 0 Refill(s) No Longer Active 05/19/2016 [facility] Vitamin D3 1000 intl units oral tablet 1,000 IntlUnit=1 tab, PO, Daily, # 30 tab, 0 Refill(s) Active 05/13/2016 [facility] Vitamin B12 1000 mcg oral tablet 1,000 microgram=1 tab, PO, Daily, # 30 tab, 0 Refill(s) Active 05/13/2016 [facility] multivitamin 1 tab, PO, Daily, 0 Refill(s) Active 05/13/2016 [facility] Vitamin C 500 mg oral tablet 500 mg=1 tab, PO, Daily, # 30 tab, 0 Refill(s) Active 05/13/2016 [facility] Hydrochlorothiazide 25 MG Oral Tablet 25 mg=1 tab, PO, Daily, # 30 tab, 0 Refill(s) Active 05/13/2016 [facility] amLODIPine 2.5 mg oral tablet 2.5 mg=1 tab, PO, Daily, # 30 tab, 0 Refill(s) Active 05/13/2016 [facility] potassium chloride 20 mEq oral tablet, extended release 20 mEq=1 tab, PO, Daily, # 30 tab, 3 Refill(s) Active 05/13/2016 [facility] Azithromycin (Azithromycin*) 250 Mg Tablet, Active 07/30/2012 [facility] Cetirizine Hcl 10 Mg Tablet, Active 07/30/2012 [facility] Cetirizine Hcl (Zyrtec) 10 Mg Tablet, Active 07/30/2012 [facility] Prednisone 20 Mg Tablet, Active 07/30/2012 [facility] Hydrochlorothiazide 25 Mg Tablet Daily Active [facility] Omeprazole Magnesium (Prilosec Otc) 20 Mg Tablet. Daily Active [facility] Potassium Chloride 20 Meq Tab.er.prt Daily Active [facility] Allergies, Adverse Reactions, Alerts Substance Category Reaction Severity Reaction type Status Date Reported Comments Source No Known Drug Allergies Mild Allergy to Substance Active 09/26/2017 [facility] meloxicam Assertion Drug allergy Active [facility] Immunizations Immunization Date Given Site Status Last Updated Comments Source pneumococcal 23-valent vaccine 05/22/2016 Left deltoid completed [facility] influenza virus vaccine, inactivated 04/15/2016 completed Ronald Felipe [facility] Results Order Name Results Value Reference Range Date Interpretation Comments Source CARDIAC ENZYMES CK MB <1.0 0.5 - 3.6 12/16/2017 [facility] CARDIAC ENZYMES Troponin-I <0.02 0.00 - 0.40 12/16/2017 [facility] ELECTROLYTES CO2 27 24 - 32 12/16/2017 [facility] ELECTROLYTES Chloride Lvl 106 95 - 109 12/16/2017 [facility] ELECTROLYTES eGFR 67 12/16/2017 Result Comment: The eGFR is calculated [...] should be multiplied by the estimated BMI. [facility] ELECTROLYTES Sodium Lvl 141 135 - 145 12/16/2017 [facility] ELECTROLYTES Creatinine Lvl 0.91 0.50 - 1.40 12/16/2017 [facility] ELECTROLYTES BUN 14 7 - 22 12/16/2017 [facility] ELECTROLYTES Glucose Lvl 93 70 - 99 12/16/2017 [facility] ELECTROLYTES Potassium Lvl 4.4 3.5 - 5.1 12/16/2017 [facility] ELECTROLYTES Calcium Lvl 9.2 8.5 - 10.5 12/16/2017 [facility] ELECTROLYTES AGAP 12.4 10.0 - 20.0 12/16/2017 [facility] HEMATOLOGY Eosinophils # 0.3 0.0 - 0.5 12/16/2017 [facility] HEMATOLOGY Monocytes # 0.6 0.0 - 0.8 12/16/2017 [facility] HEMATOLOGY Segs-Bands # 4.4 1.5 - 8.1 12/16/2017 [facility] HEMATOLOGY Lymphocytes # 1.9 1.0 - 5.5 12/16/2017 [facility] HEMATOLOGY Basophils 0.5 0.0 - 1.0 12/16/2017 [facility] HEMATOLOGY Eosinophils 3.8 0.0 - 4.0 12/16/2017 [facility] HEMATOLOGY Monocytes 7.8 2.0 - 12.0 12/16/2017 [facility] HEMATOLOGY Lymphocytes 26.7 20.0 - 40.0 12/16/2017 [facility] HEMATOLOGY Segs 61.2 45.0 - 75.0 12/16/2017 [facility] HEMATOLOGY PTT 30.9 22.9 - 35.8 12/16/2017 [facility] HEMATOLOGY PT 11.8 12.0 - 14.7 12/16/2017 [facility] HEMATOLOGY INR 0.87 0.85 - 1.17 12/16/2017 [facility] HEMATOLOGY WBC 7.1 3.7 - 10.4 12/16/2017 [facility] HEMATOLOGY Hgb 15.4 12.0 - 16.0 12/16/2017 [facility] HEMATOLOGY Platelet 292 133 - 450 12/16/2017 [facility] HEMATOLOGY RDW 14.3 11.5 - 14.5 12/16/2017 [facility] HEMATOLOGY Hct 46.0 36.0 - 48.0 12/16/2017 [facility] HEMATOLOGY MCV 85.1 80.0 - 98.0 12/16/2017 [facility] HEMATOLOGY RBC 5.41 4.20 - 5.40 12/16/2017 [facility] HEMATOLOGY MCH 28.5 27.0 - 31.0 12/16/2017 [facility] HEMATOLOGY MCHC 33.4 32.0 - 36.0 12/16/2017 [facility] HEMATOLOGY MPV 9.4 7.4 - 10.4 12/16/2017 [facility] Automated blood hematocrit (volume fraction) Automated blood hematocrit (volume fraction) 41.8 34.2 - 44.1 09/27/2017 [facility] Blood hemoglobin measurement (moles/volume) Blood hemoglobin measurement (moles/volume) 13.8 12.0 - 16.0 09/27/2017 [facility] Estimated glomerular filtration rate (GFR) determination Estimated glomerular filtration rate (GFR) determination >60 60 09/27/2017 [facility] Glucose measurement Glucose measurement 104 74 - 118 09/27/2017 [facility] Serum or plasma anion gap Serum or plasma anion gap 10.8 8 - 16 09/27/2017 [facility] Serum or plasma calcium measurement (mass/volume) Serum or plasma calcium measurement (mass/volume) 8.6 8.4 - 10.2 09/27/2017 [facility] Serum or plasma carbon dioxide, total measurement (moles/volume) Serum or plasma carbon dioxide, total measurement (moles/volume) 29 22 - 29 09/27/2017 [facility] Serum or plasma chloride measurement (moles/volume) Serum or plasma chloride measurement (moles/volume) 105 98 - 107 09/27/2017 [facility] Serum or plasma creatinine measurement (mass/volume) Serum or plasma creatinine measurement (mass/volume) 0.85 0.57 - 1.11 09/27/2017 [facility] Serum or plasma potassium measurement (moles/volume) Serum or plasma potassium measurement (moles/volume) 3.8 3.5 - 5.1 09/27/2017 [facility] Serum or plasma sodium measurement (moles/volume) Serum or plasma sodium measurement (moles/volume) 141 136 - 145 09/27/2017 [facility] Serum or plasma urea nitrogen measurement (mass/volume) Serum or plasma urea nitrogen measurement (mass/volume) 14 7 - 26 09/27/2017 [facility] Serum or plasma urea nitrogen/creatinine mass ratio Serum or plasma urea nitrogen/creatinine mass ratio 16 6 - 25 09/27/2017 [facility] Serum or plasma creatine kinase MB measurement (mass/volume) Serum or plasma creatine kinase MB measurement (mass/volume) 1.00 0 - 5.0 09/27/2017 [facility] Serum or plasma creatine kinase measurement (enzymatic activity/volume) Serum or plasma creatine kinase measurement (enzymatic activity/volume) 73 29 - 168 09/27/2017 [facility] Troponin I measurement by highly sensitive enzyme immunoassay Troponin I measurement by highly sensitive enzyme immunoassay <0.001 0 - 0.300 09/27/2017 [facility] Automated blood basophil count (count/volume) Automated blood basophil count (count/volume) 0.1 0.0 - 0.1 09/27/2017 [facility] Automated blood basophil count as percentage of total leukocytes Automated blood basophil count as percentage of total leukocytes 0.7 0.0 - 1.0 09/27/2017 [facility] Automated blood eosinophil count Automated blood eosinophil count 0.3 0.0 - 0.4 09/27/2017 [facility] Automated blood eosinophil count as percentage of total leukocytes Automated blood eosinophil count as percentage of total leukocytes 4.2 0.0 - 6.0 09/27/2017 [facility] Automated blood lymphocyte count as percentage ot total leukocytes Automated blood lymphocyte count as percentage ot total leukocytes 21.2 18.0 - 39.1 09/27/2017 [facility] Automated blood monocyte count as percentage of total leukocytes Automated blood monocyte count as percentage of total leukocytes 8.2 4.4 - 11.3 09/27/2017 [facility] Automated blood neutrophil count Automated blood neutrophil count 4.7 2.1 - 6.9 09/27/2017 [facility] Automated blood platelet count (count/volume) Automated blood platelet count (count/volume) 300 140 - 360 09/27/2017 [facility] Automated blood segmented neutrophil count as percentage of total leukocytes Automated blood segmented neutrophil count as percentage of total leukocytes 65.4 38.7 - 80.0 09/27/2017 [facility] Automated erythrocyte mean corpuscular hemoglobin (mass per erythrocyte) Automated erythrocyte mean corpuscular hemoglobin (mass per erythrocyte) 28.2 28 - 32 09/27/2017 [facility] Automated erythrocyte mean corpuscular hemoglobin concentration measurement (mass/volume) Automated erythrocyte mean corpuscular hemoglobin concentration measurement (mass/volume) 33.7 31 - 35 09/27/2017 [facility] Automated erythrocyte mean corpuscular volume Automated erythrocyte mean corpuscular volume 83.8 81 - 99 09/27/2017 [facility] Blood erythrocytes automated count (number/volume) Blood erythrocytes automated count (number/volume) 4.82 3.6 - 5.1 09/27/2017 [facility] Blood leukocytes automated count (number/volume) Blood leukocytes automated count (number/volume) 7.21 4.8 - 10.8 09/27/2017 [facility] Blood lymphocytes count (number/volume) Blood lymphocytes count (number/volume) 1.5 1.0 - 3.2 09/27/2017 [facility] Blood monocytes automated count (number/volume) Blood monocytes automated count (number/volume) 0.6 0.2 - 0.8 09/27/2017 [facility] Plasma globulin measurement (mass/volume) Plasma globulin measurement (mass/volume) 3.1 2.3 - 3.5 09/27/2017 [facility] Serum or plasma alanine aminotransferase measurement (enzymatic activity/volume) Serum or plasma alanine aminotransferase measurement (enzymatic activity/volume) 17 0 - 55 09/27/2017 [facility] Serum or plasma albumin measurement (mass/volume) Serum or plasma albumin measurement (mass/volume) 3.1 3.5 - 5.0 09/27/2017 [facility] Serum or plasma albumin/globulin mass ratio Serum or plasma albumin/globulin mass ratio 1.0 0.8 - 2.0 09/27/2017 [facility] Serum or plasma alkaline phosphatase measurement (enzymatic activity/volume) Serum or plasma alkaline phosphatase measurement (enzymatic activity/volume) 66 40 - 150 09/27/2017 [facility] Serum or plasma protein measurement (mass/volume) Serum or plasma protein measurement (mass/volume) 6.2 6.5 - 8.1 09/27/2017 [facility] Serum or plasma total bilirubin measurement (mass/volume) Serum or plasma total bilirubin measurement (mass/volume) 0.7 0.2 - 1.2 09/27/2017 [facility] Red Cell Distribution Width 13.7 11.7 - 14.4 09/27/2017 [facility] IM GRANULOCYTES % 0.3 0.0 - 1.0 09/27/2017 [facility] Absolute Immature Granulocyte (auto 0.02 0 - 0.1 09/27/2017 [facility] Aspartate Amino Transf (AST/SGOT) 17 5 - 34 09/27/2017 [facility] Activated partial thromboplastin time (aPTT) in platelet poor plasma bycoagulation assay Activated partial thromboplastin time (aPTT) in platelet poor plasma bycoagulation assay 29.3 23.8 - 35.5 09/26/2017 [facility] INR in Platelet poor plasma by Coagulation assay INR in Platelet poor plasma by Coagulation assay 0.99 09/26/2017 [facility] Prothrombin time (PT) in platelet poor plasma by coagulation assay Prothrombin time (PT) in platelet poor plasma by coagulation assay 12.3 11.9 - 14.5 09/26/2017 [facility] Automated urine sediment leukocyte count by microscopy (number/high power field) Automated urine sediment leukocyte count by microscopy (number/high power field) <5 0 - 5 09/26/2017 [facility] Bacteria detection in urine sediment by light microscopy Bacteria detection in urine sediment by light microscopy FEW NONE 09/26/2017 [facility] Epithelial cells detection in urine sediment by light microscopy Epithelial cells detection in urine sediment by light microscopy FEW NONE 09/26/2017 [facility] Erythrocytes detection in urine sediment by light microscopy Erythrocytes detection in urine sediment by light microscopy <5 0 - 5 09/26/2017 [facility] Specific gravity of Urine by Test strip Specific gravity of Urine by Test strip 1.020 1.010 - 1.025 09/26/2017 [facility] Urine clarity Urine clarity CLEAR CLEAR 09/26/2017 [facility] Urine color determination Urine color determination YELLOW YELLOW 09/26/2017 [facility] Urine erythrocytes detection Urine erythrocytes detection TRACE NEGATIVE 09/26/2017 [facility] Urine glucose detection Urine glucose detection NEGATIVE NEGATIVE 09/26/2017 [facility] Urine ketones detection by automated test strip Urine ketones detection by automated test strip NEGATIVE NEGATIVE 09/26/2017 [facility] Urine leukocyte esterase detection by dipstick Urine leukocyte esterase detection by dipstick NEGATIVE NEGATIVE 09/26/2017 [facility] Urine nitrite detection Urine nitrite detection NEGATIVE NEGATIVE 09/26/2017 [facility] Urine pH measurement by automated test strip Urine pH measurement by automated test strip 7 5 - 7 09/26/2017 [facility] Urine protein measurement by test strip (mass/volume) Urine protein measurement by test strip (mass/volume) NEGATIVE NEGATIVE 09/26/2017 [facility] Urine total bilirubin measurement (mass/volume) Urine total bilirubin measurement (mass/volume) NEGATIVE NEGATIVE 09/26/2017 [facility] Urine urobilinogen measurement by test strip (mass/volume) Urine urobilinogen measurement by test strip (mass/volume) 0.2 0.2 - 1 09/26/2017 [facility] HEMATOLOGY Lymphocytes # 1.4 1.0 - 5.5 05/21/2016 [facility] HEMATOLOGY Eosinophils # 0.2 0.0 - 0.5 05/21/2016 [facility] HEMATOLOGY Monocytes # 1.0 0.0 - 0.8 05/21/2016 [facility] HEMATOLOGY Segs-Bands # 6.2 1.5 - 8.1 05/21/2016 [facility] HEMATOLOGY Monocytes 10.9 2.0 - 12.0 05/21/2016 [facility] HEMATOLOGY Basophils 0.4 0.0 - 1.0 05/21/2016 [facility] HEMATOLOGY Eosinophils 2.5 0.0 - 4.0 05/21/2016 [facility] HEMATOLOGY Segs 70.6 45.0 - 75.0 05/21/2016 [facility] HEMATOLOGY Lymphocytes 15.6 20.0 - 40.0 05/21/2016 [facility] HEMATOLOGY Platelet 250 133 - 450 05/21/2016 [facility] HEMATOLOGY MPV 8.9 7.4 - 10.4 05/21/2016 [facility] HEMATOLOGY MCV 85.3 80.0 - 98.0 05/21/2016 [facility] HEMATOLOGY MCHC 34.2 32.0 - 36.0 05/21/2016 [facility] HEMATOLOGY Hct 32.1 36.0 - 48.0 05/21/2016 [facility] HEMATOLOGY RDW 13.8 11.5 - 14.5 05/21/2016 [facility] HEMATOLOGY WBC 8.8 3.7 - 10.4 05/21/2016 [facility] HEMATOLOGY Hgb 11.0 12.0 - 16.0 05/21/2016 [facility] HEMATOLOGY RBC 3.77 4.20 - 5.40 05/21/2016 [facility] HEMATOLOGY MCH 29.1 27.0 - 31.0 05/21/2016 [facility] HEMATOLOGY Monocytes 6.2 2.0 - 12.0 05/20/2016 [facility] HEMATOLOGY Lymphocytes 6.5 20.0 - 40.0 05/20/2016 [facility] HEMATOLOGY Basophils 0.1 0.0 - 1.0 05/20/2016 [facility] HEMATOLOGY Segs 87.2 45.0 - 75.0 05/20/2016 [facility] HEMATOLOGY Segs-Bands # 11.9 1.5 - 8.1 05/20/2016 [facility] HEMATOLOGY Lymphocytes # 0.9 1.0 - 5.5 05/20/2016 [facility] HEMATOLOGY Monocytes # 0.8 0.0 - 0.8 05/20/2016 [facility] HEMATOLOGY RDW 13.9 11.5 - 14.5 05/20/2016 [facility] HEMATOLOGY Platelet 269 133 - 450 05/20/2016 [facility] HEMATOLOGY MCH 28.2 27.0 - 31.0 05/20/2016 [facility] HEMATOLOGY MCHC 32.8 32.0 - 36.0 05/20/2016 [facility] HEMATOLOGY MPV 9.2 7.4 - 10.4 05/20/2016 [facility] HEMATOLOGY WBC 13.6 3.7 - 10.4 05/20/2016 [facility] HEMATOLOGY MCV 85.9 80.0 - 98.0 05/20/2016 [facility] HEMATOLOGY Hct 38.3 36.0 - 48.0 05/20/2016 [facility] HEMATOLOGY RBC 4.46 4.20 - 5.40 05/20/2016 [facility] HEMATOLOGY Hgb 12.6 12.0 - 16.0 05/20/2016 [facility] BLOOD BANK RESULTS Antibody Scrn Negative (05/19/16 9:04 AM) 05/19/2016 [facility] BLOOD BANK RESULTS ABO/Rh AB POS 05/19/2016 [facility] HEMATOLOGY PTT 30.0 22.9 - 35.8 05/19/2016 [facility] HEMATOLOGY INR 0.87 0.85 - 1.17 05/19/2016 [facility] HEMATOLOGY PT 12.0 12.0 - 14.7 05/19/2016 [facility] URINE AND STOOL UA Mucus Rare /LPF None Seen /LPF 05/19/2016 [facility] URINE AND STOOL UA Bili Negative *NA* (05/19/16 9:04 AM) Negative 05/19/2016 [facility] URINE AND STOOL UA Ketones Negative *NA* (05/19/16 9:04 AM) Negative 05/19/2016 [facility] URINE AND STOOL UA Urobilinogen 0.2 0.1 - 1.0 05/19/2016 [facility] URINE AND STOOL UA Nitrite Negative (05/19/16 9:04 AM) Negative 05/19/2016 [facility] URINE AND STOOL UA Glucose Negative (05/19/16 9:04 AM) Negative 05/19/2016 [facility] URINE AND STOOL UA Spec Grav 1.010 <=1.030 05/19/2016 [facility] URINE AND STOOL UA Turbidity Clear (05/19/16 9:04 AM) Clear 05/19/2016 [facility] URINE AND STOOL UA Protein Negative (05/19/16 9:04 AM) Negative 05/19/2016 [facility] URINE AND STOOL UA pH 6.0 5.0 - 8.0 05/19/2016 [facility] URINE AND STOOL UA Blood Negative (05/19/16 9:04 AM) Negative 05/19/2016 [facility] URINE AND STOOL UA Color Yellow *NA* (05/19/16 9:04 AM) Yellow 05/19/2016 [facility] URINE AND STOOL UA Leuk Est Small *ABN* (05/19/16 9:04 AM) Negative 05/19/2016 [facility] URINE AND STOOL Micro? Performed (05/19/16 9:04 AM) 05/19/2016 [facility] URINE AND STOOL UA WBC 3-5 /HPF None Seen /HPF 05/19/2016 [facility] URINE AND STOOL UA Sq Epi Few /LPF Few /LPF 05/19/2016 [facility] URINE AND STOOL UA Bacteria Few /HPF None Seen /HPF 05/19/2016 [facility] URINE AND STOOL UA RBC 0-2 /HPF 0 - 2 05/19/2016 [facility] CHEM PANEL Calcium Lvl 8.7 8.5 - 10.5 05/13/2016 [facility] CHEM PANEL CO2 28 24 - 32 05/13/2016 [facility] CHEM PANEL Chloride Lvl 104 95 - 109 05/13/2016 [facility] CHEM PANEL eGFR 62 05/13/2016 Result Comment: The eGFR is calculated [...] should be multiplied by the estimated BMI. [facility] CHEM PANEL BUN 19 7 - 22 05/13/2016 [facility] CHEM PANEL Creatinine Lvl 0.98 0.50 - 1.40 05/13/2016 [facility] CHEM PANEL Glucose Lvl 81 70 - 99 05/13/2016 [facility] CHEM PANEL Sodium Lvl 142 135 - 145 05/13/2016 [facility] CHEM PANEL Potassium Lvl 3.8 3.5 - 5.1 05/13/2016 [facility] CHEM PANEL AGAP 13.8 10.0 - 20.0 05/13/2016 [facility] HEMATOLOGY Eosinophils # 0.4 0.0 - 0.5 05/13/2016 [facility] HEMATOLOGY Monocytes # 0.7 0.0 - 0.8 05/13/2016 [facility] HEMATOLOGY Segs-Bands # 5.1 1.5 - 8.1 05/13/2016 [facility] HEMATOLOGY Basophils # 0.1 0.0 - 0.2 05/13/2016 [facility] HEMATOLOGY Lymphocytes # 2.4 1.0 - 5.5 05/13/2016 [facility] HEMATOLOGY Monocytes 8.1 2.0 - 12.0 05/13/2016 [facility] HEMATOLOGY Lymphocytes 27.7 20.0 - 40.0 05/13/2016 [facility] HEMATOLOGY Basophils 0.8 0.0 - 1.0 05/13/2016 [facility] HEMATOLOGY Eosinophils 4.1 0.0 - 4.0 05/13/2016 [facility] HEMATOLOGY Segs 59.3 45.0 - 75.0 05/13/2016 [facility] HEMATOLOGY MPV 9.6 7.4 - 10.4 05/13/2016 [facility] HEMATOLOGY Hct 43.2 36.0 - 48.0 05/13/2016 [facility] HEMATOLOGY RDW 13.8 11.5 - 14.5 05/13/2016 [facility] HEMATOLOGY MCHC 33.1 32.0 - 36.0 05/13/2016 [facility] HEMATOLOGY MCH 28.5 27.0 - 31.0 05/13/2016 [facility] HEMATOLOGY MCV 86.1 80.0 - 98.0 05/13/2016 [facility] HEMATOLOGY Platelet 361 133 - 450 05/13/2016 [facility] HEMATOLOGY Hgb 14.3 12.0 - 16.0 05/13/2016 [facility] HEMATOLOGY RBC 5.02 4.20 - 5.40 05/13/2016 [facility] HEMATOLOGY WBC 8.6 3.7 - 10.4 05/13/2016 [facility] Pathology Reports No Data Provided for This Section Diagnostic Reports Report Value Date Source Breast Mammo Scrn DION w dianna incl CAD MA BILATERAL DIGITAL SCREENING MAMMOGRAM 3D/2D WITH CAD: 08/16/2018 CLINICAL: /Z12.31 Encounter For Screening Mammogram For Malignant Neoplasm Of Breast. Current study was evaluated with a Computer Aided Detection (CAD) system. COMPARISON:Comparison is made to exams dated: 03/01/2017 mammogram, 02/27/2016 mammogram, 02/05/2015 mammogram, 11/14/2013 mammogram, and 06/11/2011 mammogram - [facility]. TECHNIQUE: Digital Breast Tomosynthesis was performed and utilized for Interpretation. TouchPo Android POSa Version 1.1 was utilized for computer aided [...] is recommended.(08/17/2019) This exam was interpreted at [id number] for [facility], [place] 12. Jeferson Mondragon M.D. ap/penrad:08/16/2018 10:57:48 Circular Sawyer Helper(s): RT Mehrdad(R)(M), [facility] letter sent: BI-RADS 1/2 Mammogram BI-RADS: 2 Benign 08/16/2018 [facility] Chest 1view DX EXAM: XR CHEST 1 [...] No acute cardiopulmonary abnormality. SL: [id number] 12/15/2017 [facility] Brain wo contrast CT Clinical Indication: Left-sided [...] no mass, hemorrhage or subacute stroke. SL: NIEVES 12/15/2017 [facility] Breast Mammo Scrn DION incl CAD MA - BREAST MAMMO SCRN DION INCL CAD MA BILATERAL DIGITAL SCREENING MAMMOGRAM WITH CAD: 03/01/2017 CLINICAL: /Z12.31 Encounter For Screening Mammogram For Malignant Neoplasm Of Breast. Current study was evaluated with a Computer Aided Detection (CAD) system. Comparison is made to exams dated: 02/27/2016 mammogram, 02/05/2015 mammogram, 11/14/2013 mammogram, 06/11/2011 mammogram and 10/10/2008 mammogram - [facility]. There are scattered fibroglandular densities in both breasts. There are benign calcifications in both breasts. No significant masses, calcifications, or other findings are seen in either breast. There has been no significant interval change. IMPRESSION: BENIGN There is no mammographic evidence of malignancy. A 1 year screening mammogram is recommended. Jeferson Mondragon M.D. ap/penrad:03/01/2017 08:25:29 Circular Sawyer Helper: Chuyita Hughes RT (R)(M), [facility] This exam was dictated and interpreted by [id number] for [facility], 12. letter sent: Normal exam Mammogram BI-RADS: 2 Benign 03/01/2017 [facility] Chest 1view DX History: Coughing. COMPARISON: 03/13/2007. FINDINGS: Views: 1 LUNGS: There is normal lung volume. Left lower lobe atelectasis or infiltrate. There are no pleural effusions. There is no pneumothorax. The pulmonary vasculature is normal. MEDIASTINUM: The cardiac silhouette is enlarged. The trachea is midline. BONES: Lower cervical fusion. IMPRESSION: Left lower lobe atelectasis or infiltrate. SL: CHERYLE 05/19/2016 [facility] Knee 1-2 Views unilateral DX Patient Name: Johanna Barboza : ; Age: y/o Unknown MR: [id number] Study: Knee 1-2 Views unilateral DX 05/19/2016 4:30 PM [employer] Ordering Physician: Clinical Indication: ; Comparison: 07/14/2007 Left knee 2 views Status post left knee arthroplasty. Hardware appears to be in reasonable anatomic position, without evidence for periprosthetic lucency or new fracture. There are postsurgical changes within the soft tissues, consistent with the immediate postoperative state. SL: TORRES 05/19/2016 [facility] Knee wo contrast MRI MR LEFT KNEE [...] Thank you for referring your patient to [facility] and [facility]. SL: [id number] 02/27/2016 [facility] Digital Mammo Screening Dion MA - DIGITAL MAMMO SCREENING DION MA BILATERAL DIGITAL SCREENING MAMMOGRAM WITH CAD: 02/27/2016 CLINICAL: Z12.31 Encounter For Screening Mammogram For Malignant Neoplasm Of Breast. Current study was evaluated with a Computer Aided Detection (CAD) system. Comparison is made to exams dated: 02/05/2015 mammogram, 11/14/2013 mammogram and 06/11/2011 mammogram - [facility]. There are scattered fibroglandular densities in both breasts. There are benign calcifications in both breasts. No significant masses, calcifications, or other findings are seen in either breast. There has been no significant interval change. IMPRESSION: BENIGN There is no mammographic evidence of malignancy. A 1 year screening mammogram is recommended. Jeferson Mondragon M.D. ap/penrad:02/28/2016 14:01:16 Circular Sawyer Helper: Renee SCHUMACHER(R)(M), [facility] This exam was dictated and interpreted by [id number] for [facility], 12. letter sent: Normal exam Mammogram BI-RADS: 2 Benign 02/27/2016 [facility] Digital Mammo Screening Dion MA - DIGITAL MAMMO SCREENING DION MA BILATERAL DIGITAL SCREENING MAMMOGRAM WITH CAD: 02/05/2015 CLINICAL: Screening. Current study was evaluated with a Computer Aided Detection (CAD) system. Comparison is made to exams dated: 11/14/2013 mammogram and 06/11/2011 mammogram - [facility]. There are scattered fibroglandular densities in both breasts. There are benign calcifications in both breasts. No significant masses, calcifications, or other findings are seen in either breast. There has been no significant interval change. IMPRESSION: BENIGN There is no mammographic evidence of malignancy. A 1 year screening mammogram is recommended. Jeferson Mondragon M.D. ap/penrad:02/06/2015 10:42:32 Circular Sawyer Helper: Roseann CELAYA)(Jesi), [facility] This exam was dictated and interpreted by [id number] for [facility], [place] 12. letter sent: Normal exam Mammogram BI-RADS: 2 Benign 02/05/2015 [facility] Chest wo contrast CT CT scan of [...] at the chest is noted. SL:12 01/21/2015 [facility] Sinus paranasal series DX PARANASAL SINUSES (4 [...] spine. Coding: Sinus paranasal series CPT code: 88710 SL: 12 Addison Castillo M.D. 12/28/2014 [facility] Consultation Notes No Data Provided for This Section Discharge Summaries No Data Provided for This Section History and Physicals No Data Provided for This Section Vital Signs Vital Sign Value Date Comments Source Respitory Rate 20 12/16/2017 [facility] Systolic (mm Hg) 117 12/16/2017 [...] 12/15/2017 [facility] Weight 89.545 12/15/2017 [facility] Heart Rate 66 12/15/2017 [facility] Temperature [...] [place] Diastolic (mm Hg) 75 05/25/2016 [facility] Weight 93.364 05/13/2016 [facility] Height 149.86 cm 05/13/2016 [facility] BMI Calculated 41.57 05/13/2016 [facility] Height 152.4 cm 01/21/2015 [facility] BMI Calculated 39.53 01/21/2015 [facility] Weight 91.818 01/21/2015 [facility] Encounters Location Location Details Encounter Type Encounter Number Reason For Visit Attending Provider ADM Date DC Date Status Source [facility] Outpatient [id number] Sangeeta Matos 12/28/2014 12/29/2014 [facility] Outpatient [id number] Najmamacheo Fung 01/21/2015 01/22/2015 [facility] Outpatient [id number] Sangeeta Matos 02/05/2015 02/06/2015 [facility] Outpatient [id number] Sangeeta Matos 02/27/2016 02/28/2016 [facility] Outpatient [id number] Ephraim Samano 02/27/2016 02/28/2016 [facility] Inpatient [id number] Ephraim Samano 05/19/2016 05/25/2016 [facility] OP Therapy Patients [id number] Ephraim Samano 08/21/2016 09/20/2016 [facility] Outpatient [id number] Sangeeta Matos 03/01/2017 03/02/2017 [facility] Outpatient [id number] Sangeeta Matos 03/17/2017 03/18/2017 [facility] Outpatient [id number] Najmamacheo Fung 03/31/2017 04/01/2017 [facility] Discharged Inpatient (obs) [id number] QUIN MADSEN MD 09/26/2017 09/27/2017 [facility] Neurology [facility] Pre-Reg [id number] Lexi Goel 12/08/2017 12/08/2017 [facility] Emergency [id number] Zara Esposito 12/15/2017 12/16/2017 [facility] Outpatient [id number] Sangeeta Matos 08/16/2018 08/17/2018 [facility] Procedures Procedure Code Date Perfomer Comments Source Computed tomography of brain without radiopaque contrast [id number] 09/26/2017 [facility] Cardiac catheterisation [id number] 04/06/2016 [facility] Cardiac catheterisation [id number] 04/06/2016 [facility] Cardiac catheterisation [id number] 04/06/2016 [facility] Cervical laminectomy [id number] 06/21/2003 [facility] Cervical laminectomy [id number] 06/21/2003 [facility] Cervical laminectomy [id number] 06/21/2003 [facility] Carpal tunnel<sup>1</sup> [id number] 06/21/1998 rt wrist [facility] Carpal tunnel<sup>1</sup> [id number] 06/21/1998 rt wrist [facility] Carpal tunnel<sup>1</sup> [id number] 06/21/1998 rt wrist [facility] Bunionectomy [id number] 06/21/1994 [facility] Bunionectomy [id number] 06/21/1994 [facility] Bunionectomy [id number] 06/21/1994 [facility] Laparoscopic cholecystectomy [id number] 06/21/1984 [facility] Laparoscopic cholecystectomy [id number] 06/21/1984 [facility] Laparoscopic cholecystectomy [id number] 06/21/1984 [facility] Hysterectomy [id number] 06/21/1979 [facility] Tonsillectomy [id number] 06/21/1979 [facility] Hysterectomy [id number] 06/21/1979 [facility] Tonsillectomy [id number] 06/21/1979 [facility] Hysterectomy [id number] 06/21/1979 [facility] Tonsillectomy [id number] 06/21/1979 [facility] Assessment and Plan No Data Provided for This Section Plan of Care Plan of Care Date Source Discharge Date 09/27/17 6:19pm Disposition HOME, SELF-CARE Instructions/Education Provided Syncope Contusion Prescriptions See Medication Section Referrals pcp (Internal Medicine) Order Date: 5-7 Days Entered Date: 09/27/2017 7:56am Additional Instructions/Education ACTIVITY TOLERATED FOLLOW UP WITH PRIMARY CARE DOCTOR GO TO NEAREST EMERGENCY ROOM IF TEMPERATURE 100.1 OR GREAETER, NAUSEA, VOMITING, CHEST PAIN, OR UNRELEIVED PAIN. 09/27/2017 [facility] Social History Social History Date Source Social History Problem Response Recorded Date/Time Onset Date Status Hx Psychiatric Problems No 09/26/2017 11:50pm Not Applicable Not Applicable Hx Eating Disorder No 09/26/2017 11:50pm Not Applicable Not Applicable Hx Substance Use Disorder No 09/26/2017 11:50pm Not Applicable Not Applicable Hx Depression No 09/26/2017 11:50pm Not Applicable Not Applicable Hx Alcohol Use No 09/26/2017 11:50pm Not Applicable Not Applicable Hx Substance Use Treatment No 09/26/2017 11:50pm Not Applicable Not Applicable Hx Physical Abuse No 09/26/2017 11:50pm Not Applicable Not Applicable Smoking Status Start Date Stop Date Never Smoker 09/27/2017 [facility] Social History TypeResponse Substance Abuse Use: None. Alcohol Current, Type [...] Smoking Cessation Counseling No entered on: 12/15/17 05/13/2016 [facility] Social History TypeResponse Substance Abuse Use: None. Alcohol Current, Type [...] Days No; Reg Smoking Cessation Counseling No 05/13/2016 [facility] Social History TypeResponse Substance Abuse Use: None. Alcohol Current, Type [...] Smoking Cessation Counseling No entered on: 05/19/16 05/13/2016 [facility] Family History No Data Provided for This Section Advance Directives Order Name Results Value Date Source Advance Directives Advance Directives Directive Response Recorded Date/Time Does the patient have an advance directive? No 09/26/17 11:50pm If yes, is advance directive on file with [facility]? No 09/26/17 11:50pm If not on file with [facility] will patient provide a copy? Yes 09/26/17 11:50pm Do you have a Directive to Physician? No 09/26/17 8:55pm Do you have a Medical Power of Medical Office Professional Instructor? No 09/26/17 8:55pm Do you have an out of hospital Do Not Resuscitate Order? No 09/26/17 8:55pm Do you have any special needs we should be aware of? No 09/26/17 8:55pm Do you have a support person here with you today? Yes 09/26/17 8:55pm Did patient receive Notice of Privacy Practices? Yes 09/26/17 8:55pm Did patient receive patient rights and responsibilities? Yes 09/26/17 8:55pm 09/27/2017 [facility] Functional Status No Data Provided for This Section
[2018-12-20] MEDS ORDERED: SODIUM CHLORIDE 0.9% 1000ML 1,000 ML IV STA (11:43)
[2018-12-20] MEDS ORDERED: FAMOTIDINE 20 MG/2 ML VIAL IV STA (11:44)
[2018-12-20] MEDS ORDERED: DONNATAL/LIDOCAINE/MAALOX 30 ML SUSP PO STA (11:44)
--- NOTE | 2018-12-20 13:02 | Diagnostic Imaging Report ---
EXAMINATION: CHEST SINGLE (PORTABLE) INDICATION: Fever COMPARISON: None FINDINGS: Study is limited by portable technique and body habitus. TUBES and LINES: None. LUNGS: The lungs are moderately inflated. No focal consolidation or pulmonary edema. PLEURA: No pleural effusion or pneumothorax. HEART AND MEDIASTINUM: The cardiomediastinal silhouette is unremarkable. BONES AND SOFT TISSUES: No displaced fracture. Cervical fusion hardware partially seen. UPPER ABDOMEN: No free air under the diaphragm. IMPRESSION: No focal pneumonia or pulmonary edema. Signed by: Mario Eaton MD on 12/20/2018 12:59 PM
--- NOTE | 2018-12-20 13:27 | Diagnostic Imaging Report ---
Exam: Head CT without contrast History: Dizziness Comparison studies: Head CT 09/26/2017 Technique: Axial images were obtained from the skull base to the vertex. Coronal and sagittal images reconstructed from the axial data. Dose modulation, iterative reconstruction, and/or weight based adjustment of the mA/kV was utilized to reduce the radiation dose to as low as reasonably achievable. Radiation dose: Total DLP: 921 mGy*cm. Estimated effective dose: DLP x 0.015 Intravenous contrast: None Findings: Scalp: No abnormalities. Bones: No fractures, blastic or lytic lesions. Brain sulci: Appropriate for age. Ventricles: Normal in size and configuration. No hydrocephalus. Extra-axial spaces: No masses, no fluid collection. Parenchyma: No abnormal densities. No masses, acute hemorrhage, acute or chronic vascular insults. Sellar/suprasellar region: No abnormalities. Craniocervical junction: Patent foramen magnum. No Chiari one malformation. Incidental findings: Atherosclerotic calcifications in the carotid siphons. IMPRESSION: 1. No acute intracranial abnormalities. 2. No changes from the prior head CT of 09/26/2017. Signed by: Dr. Jose Alejandra M.D. on 12/20/2018 1:24 PM
[2018-12-20] MEDS ORDERED: ONDANSETRON HCL INJ 2MG/ML 2ML 2 MG/ML VIAL IV NR ×2 (14:29→17:45)
[2018-12-20] MEDS ORDERED: MAGNESIUM/ALUMINUM/SIMETHICONE 30 ML UDC ONE (14:46)
[2018-12-20] MEDS ORDERED: LIDOCAINE VISC 2% SOLN 15 ML UDC ONE (14:46)
[2018-12-20] MEDS ORDERED: BELLADONNA ALK/PHENOBARBITAL 5 ML UDC ONE (14:46)
[2018-12-20] MEDS ORDERED: SODIUM CHLORIDE 0.9% 1000ML 1,000 ML ONE (14:47)
--- NOTE | 2018-12-20 14:50 | NUR ---
UNSUCCESFUL X 4 IN GETTING IV ACCESS. LAB CALLED TO DRAW BLOOD WORK
[2018-12-20 15:27] LABS: BASOPHILS % 0.3 % (0.0-1.0); EOSINOPHILS # (AUTO) 0.1 (0.0-0.4); EOSINOPHILS % 0.7 % (0.0-6.0); HEMOGLOBIN 16.6 g/dL (12.0-16.0); LYMPHOCYTES # (AUTO) 0.7 (1.0-3.2); LYMPHOCYTES % 10.4 % (18.0-39.1); MEAN CORPUSCULAR HEMOGLOBIN 28.8 pg (28-32); MEAN CORPUSCULAR HGB CONC 33.2 g/dL (31-35); MEAN CORPUSCULAR VOLUME 86.7 fL (81-99); MONOCYTES # (AUTO) 0.5 (0.2-0.8); MONOCYTES % 7.8 % (4.4-11.3); NEUTROPHILS # (AUTO) 5.4 (2.1-6.9); NEUTROPHILS % 80.5 % (38.7-80.0); PLATELET COUNT 221 x10e3/uL (140-360); RED BLOOD COUNT 5.77 x10e6/uL (3.6-5.1); RED CELL DISTRIBUTION WIDTH 13.6 % (11.7-14.4)
[2018-12-20 15:55] LABS: ALANINE AMINOTRANSFERASE 28 IU/L (0-55); ALBUMIN/GLOBULIN RATIO 1.1 (0.8-2.0); ALKALINE PHOSPHATASE 83 IU/L (40-150); AMYLASE 79 U/L (25-125); ANION GAP 14.5 mmol/L (8-16); BLOOD UREA NITROGEN 11 mg/dL (7-26); BUN/CREATININE RATIO 14 (6-25); CALCIUM 9.6 mg/dL (8.4-10.2); CARBON DIOXIDE 25 mmol/L (22-29); CHLORIDE 104 mmol/L (98-107); CREATINE KINASE 83 IU/L (29-168); CREATININE, SERUM 0.76 mg/dL (0.57-1.11); EST GLOMERULAR FILTRATION RATE > 60 ML/MIN (60-); GLUCOSE 98 mg/dL (74-118); LIPASE 17 U/L (8-78); MAGNESIUM 2.3 MG/DL (1.3-2.1); POTASSIUM 3.5 mmol/L (3.5-5.1); SODIUM 140 mmol/L (136-145)
[2018-12-20 20:50] LABS: BILIRUBIN,URINE SMALL (NEGATIVE); CLARITY,URINE SL CLOUDY (CLEAR); COLOR,URINE YELLOW (YELLOW); LEUKOCYTE ESTERASE ,URINE SMALL (NEGATIVE); NITRITE,URINE NEGATIVE (NEGATIVE); PROTEIN,URINE DIPSTICK TRACE (NEGATIVE); URINE UROBILINOGEN 0.2 mg/dL (0.2 - 1)
[2018-12-20 20:52] LABS: KETONES,URINE 2+ (NEGATIVE)
[2018-12-20 21:03] LABS: BACTERIA,URINE MANY /HPF; EPITHELIAL CELLS,URINE FEW /LPF; MUCUS,URINE MODERATE (RARE)
[2018-12-20] MEDS ORDERED: CEFTRIAXONE SOD 1 GM/NS 50 ML 50 ML IV ONE (22:15)
[2018-12-20] MEDS ORDERED: DIPHENHYDRAMINE HCL INJ 50 MG/ML VIAL IV ONE (23:15)
[2018-12-20] MEDS ORDERED: METOCLOPRAMIDE HCL 10 MG/2ML VIAL IV ONE (23:15)
[2018-12-21 00:57] VITALS: BP 143/82
== END 2018-12-21 01:56 | disposition home or self-care (01) ==
LOC: ER 11:30
DX: R10.13 Epigastric pain (principal); R11.2 Nausea with vomiting, unspecified; R19.7 Diarrhea, unspecified; N39.0 Urinary tract infection, site not specified; K52.9 Noninfective gastroenteritis and colitis, unspecified; E86.0 Dehydration
CPT/HCPCS: 36415; 70450; 71045; 80053; 81001; 82150; 82550; 82553; 83690; 83735; 84484; 85025; 93005; 96374; 96375; 99284; J0696; J1200; J2405; J2765; J7030

== ENCOUNTER → 2020-04-10 | Outpatient (CLI) | payer OTHER | LOC: MRI 13:20 | PROVIDERS: ATTEND Psychiatry & Neurology Neurology | DX: M54.12 Radiculopathy, cervical region (principal); R42 Dizziness and giddiness | CPT/HCPCS: 70551; 72141 ==

== ENCOUNTER 2020-04-21 16:33 | Emergency (ER) | payer OTHER ==
[~2020-04-21] VITALS: Ht 152.4 cm; Wt 89.4 kg
[2020-04-21] MEDS ORDERED: SODIUM CHLORIDE 0.9% 500ML 500 ML IV ONE (17:30)
[2020-04-21 18:53] LABS: BASOPHILS # (AUTO) 0.1 (0.0-0.1); BASOPHILS % 1.1 % (0.0-1.0); EOSINOPHILS # (AUTO) 0.3 (0.0-0.4); EOSINOPHILS % 4.1 % (0.0-6.0); HEMATOCRIT 43.6 % (34.2-44.1); HEMOGLOBIN 14.2 g/dL (12.0-16.0); LYMPHOCYTES # (AUTO) 1.8 (1.0-3.2); MEAN CORPUSCULAR HEMOGLOBIN 28.4 pg (28-32); MEAN CORPUSCULAR HGB CONC 32.6 g/dL (31-35); MEAN CORPUSCULAR VOLUME 87.2 fL (81-99); MONOCYTES # (AUTO) 0.6 (0.2-0.8); MONOCYTES % 8.1 % (4.4-11.3); NEUTROPHILS # (AUTO) 4.2 (2.1-6.9); NEUTROPHILS % 60.3 % (38.7-80.0); PLATELET COUNT 286 x10e3/uL (140-360); RED CELL DISTRIBUTION WIDTH 13.5 % (11.7-14.4)
[2020-04-21 18:59] LABS: INR 0.9; PARTIAL THROMBOPLASTIN TIME 28.6 seconds (23.8-35.5); PROTHROMBIN TIME 12.6 seconds (11.9-14.5)
[2020-04-21 19:06] LABS: ALANINE AMINOTRANSFERASE 17 IU/L (0-55); ALBUMIN/GLOBULIN RATIO 1.4 (0.8-2.0); ALKALINE PHOSPHATASE 68 IU/L (40-150); ANION GAP 13.6 mmol/L (8-16); BLOOD UREA NITROGEN 22 mg/dL (7-26); BUN/CREATININE RATIO 26 (6-25); CALCIUM 9.2 mg/dL (8.4-10.2); CARBON DIOXIDE 25 mmol/L (22-29); CHLORIDE 106 mmol/L (98-107); CREATINE KINASE 140 IU/L (29-168); CREATININE, SERUM 0.86 mg/dL (0.57-1.11); EST GLOMERULAR FILTRATION RATE > 60 ML/MIN (60-); GLUCOSE 90 mg/dL (74-118); POTASSIUM 3.6 mmol/L (3.5-5.1); SODIUM 141 mmol/L (136-145)
[2020-04-21 19:07] LABS: COLOR,URINE YELLOW (YELLOW); LEUKOCYTE ESTERASE ,URINE 1+ (NEGATIVE); NITRITE,URINE NEGATIVE (NEGATIVE); PROTEIN,URINE DIPSTICK NEGATIVE (NEGATIVE)
[2020-04-21 19:08] LABS: BILIRUBIN,URINE NEGATIVE (NEGATIVE); KETONES,URINE NEGATIVE (NEGATIVE); URINE UROBILINOGEN 0.2 mg/dL (0.2 - 1)
[2020-04-21 19:49] LABS: WBC,URINE (MAN) >50 /HPF (0-5)
[2020-04-21 19:50] LABS: BACTERIA,URINE MODERATE /HPF; CLARITY,URINE CLOUDY (CLEAR); EPITHELIAL CELLS,URINE FEW /LPF; RENAL EPITHELIAL CELLS,URINE FEW; TRANSITIONAL EPI CELLS,URINE FEW
[2020-04-21 21:17] VITALS: BP 109/63
== END 2020-04-21 21:15 | disposition home or self-care (01) ==
LOC: ER 17:18
DX: T58.11XA Toxic effect of carbon monoxide from utility gas, accidental (unintentional), initial encounter (principal); R42 Dizziness and giddiness; R51.9 Headache, unspecified; Y92.008 Other place in unspecified non-institutional (private) residence as the place of occurrence of the external cause; N39.0 Urinary tract infection, site not specified; I10 Essential (primary) hypertension; E78.5 Hyperlipidemia, unspecified; K21.9 Gastro-esophageal reflux disease without esophagitis; F41.9 Anxiety disorder, unspecified
CPT/HCPCS: 36415; 70450; 71045; 80053; 81001; 82550; 82553; 84484; 85025; 85610; 85730; 87086; 93005; 99285; J7040